=== PATIENT | male | born 1985 | race Caucasian/White ===

== ENCOUNTER 2019-08-02 14:42 | Inpatient (IN) | payer OTHER ==
[2019-08-02 15:19] VITALS: BMI 47.7
--- NOTE | 2019-08-02 15:44 | HP ---
CIWA Score Nausea/Vomitin-Mild Nausea/No Vomiting Muscle Tremors: 1-None Visible, but [place] Anxiety: 6 Agitation: 4-Moderately Restless Paroxysmal Sweats: 1-Minimal Palms Moist Orientation: 0-Oriented Tacttile Disturbances: 0-None Auditory Disturbances: 0-None Visual Disturbances: 0-None Headache: 0-None Present CIWA-Ar Total Score: 13 - Admission Criteria OASAS Guidelines: Admission for Medically Managed Detox: Requires at least one of the followin. CIWA greater than 12 2. Seizures within the past 24 hours 3. Delirium tremens within the past 24 hours 4. Hallucinations within the past 24 hours 5. Acute intervention needed for co occurring medical disorder 6. Acute intervention needed for co occurring psychiatric disorder 7. Severe withdrawal that cannot be handled at a lower level of care (continued vomiting, continued diarrhea, abnormal vital signs) requiring intravenous medication and/or fluids 8. Admitting History and Physical - Admission History of Present Illness: 34 year old obese male with history of alcohol dependence with some intoxication. He is drinking 3 24 oz beers daily, last drank today at 3pm. Blacked out 1 week ago. He was in detox in [facility] in 2013 and completed and he then relapsed 1 year ago. He wants to go to detox once again and hopes that it helps like last time he was here. He is on methadone program [facility] on 130mg of methadone daily. PMH: Obesity, Hypogonadism, Asthma Psych: Anxiety Disorder, ADHD. Is being seen by a psychiatrist who put him on Gabapentin but is still in treatment. Psurg: Right Ankle surgery due to fracture and dislocation Patient is living with family and is unemployed. 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 History Source: Patient Limitations to Obtaining History: No Limitations - Past Medical History Psych: Yes: Anxiety Additional Past Medical History: Morbid obesity - Past Surgical History Additional Past Surgical History: Right ankle surgery - Smoking History Smoking history: Current every day smoker Have you smoked in the past 12 months: Yes Aproximately how many cigarettes per day: 20 (vaping) - Alcohol/Substance Use Hx Alcohol Use: Yes (daily beer drinking) Number of Drinks Daily: 33 - Social History Usual Living Arrangement: Yes: With Parent Do you think of yourself as: Straight/Heterosexual ADL: Independent Occupation: unemployed History of Recent Travel: No Admission ROS BHS - HPI Allergies/Adverse Reactions: Allergies Allergy/AdvReac Type Severity Reaction Status Date / Time No Known Allergies Allergy Verified 08/02/19 15:02 Exam Limitations: No Limitations - Ebola screening Have you traveled outside of the country in the last 21 days: No Have you had contact with anyone from an Ebola affected area: No Have you been sick,other than usual withdrawal symptoms: No Do you have a fever: No - Review of Systems Constitutional: Chills EENT: reports: No Symptoms Reported Respiratory: reports: No Symptoms reported Cardiac: reports: No Symptoms Reported, Chest Tightness : reports: No Symptoms Reported Musculoskeletal: reports: No Symptoms Reported Integumentary: reports: No Symptoms Reported Neuro: reports: No Symptoms reported Endocrine: reports: No Symptoms Reported Hematology: reports: No Symptoms Reported Psychiatric: reports: Judgement Intact, Mood/Affect Appropiate, Orientated x3, Agitated, Anxious Other Systems: Reviewed and Negative Patient History - Patient Medical History Hx Anemia: No Hx Asthma: Yes (Hx. of allergic asthma) Hx Chronic Obstructive Pulmonary Disease (COPD): No Hx Cancer: No Hx Cardiac Disorders: No Hx Hypertension: No Hx Hypercholesterolemia: No Hx Pacemaker: No HX Cerebrovascular Accident: No Hx Seizures: No Hx Diabetes: No Hx Gastrointestinal Disorders: No Hx Liver Disease: No Hx Genitourinary Disorders: No Hx Sexually Transmitted Disorders: No Hx Renal Disease (ESRD): No Hx Thyroid Disease: No Hx Human Immunodeficiency Virus (HIV): No Hx Hepatitis C: No Hx Depression: No Hx Suicide Attempt: No Hx Schizophrenia: No - Patient Surgical History Past Surgical History: No Hx Neurologic Surgery: No Hx Cataract Extraction: No Hx Cardiac Surgery: No Hx Lung Surgery: No Hx Breast Surgery: No Hx Breast Biopsy: No Hx Abdominal Surgery: No Hx Appendectomy: No Hx Cholecystectomy: No Hx Genitourinary Surgery: No Hx Section: No Hx Orthopedic Surgery: No Anesthesia Reaction: No - PPD History Date: 05/04/14 Results: 0 mm - Smoking Cessation Smoking history: Current every day smoker Have you smoked in the past 12 months: Yes Aproximately how many cigarettes per day: 20 Hx Chewing Tobacco Use: No Initiated information on smoking cessation: Yes 'Breaking Loose' booklet given: 08/02/19 - Substances abused Alcohol Substance route: Oral Frequency: Daily Amount used: (3) 240z beers Age of first use: 19 Date of last use: 08/02/19 Admission Physical Exam [facility] - Vital Signs Vital Signs: Vital Signs - 24 hr 08/02/19 15:09 Temperature 99.1 F Pulse Rate 109 H Respiratory 20 Rate Blood Pressure 141/82 - Physical General Appearance: Yes: Moderate Distress, Irritable, Sweating, Anxious HEENTM: Yes: EOMI, Hearing grossly Normal, Normal ENT Inspection, Normocephalic , Normal Voice, LYDIA, Pharynx Normal, Tm's normal Respiratory: Yes: Chest Non-Tender, Normal Breath Sounds, No Respiratory Distress, No Accessory Muscle Use Neck: Yes: No masses,lesions,Nodules, Supple, Trachea in good position Breast: Yes: Within Normal Limits Cardiology: Yes: Regular Rhythm, S1, S2, Tachycardia Abdominal: Yes: Normal Bowel Sounds, Non Tender, Flat, Soft Genitourinary: Yes: Within Normal Limits Back: Yes: Normal Inspection Musculoskeletal: Yes: full range of Motion, Gait Steady, Pelvis Stable Extremities: Yes: Normal Capillary Refill, Normal Inspection, Normal Range of Motion, Non-Tender Neurological: Yes: dock boss II-XII NML intact, Fully Oriented, Alert, Motor Strength 5/5, Normal Mood/Affect, Normal Response Integumentary: Yes: Normal Color, Warm Lymphatic: Yes: Within Normal Limits - Diagnostic (1) Alcohol dependence with withdrawal Current Visit: Yes Status: Acute (2) ADD (attention deficit disorder) Current Visit: Yes Status: Acute (3) Asthma Current Visit: Yes Status: Acute (4) ATB (generalized anxiety disorder) Current Visit: Yes Status: Acute (5) Methadone maintenance therapy patient Current Visit: Yes Status: Acute (6) Mood disorder Current Visit: Yes Status: Acute (7) Opioid dependence Current Visit: Yes Status: Acute Cleared for Admission [facility] - Detox or Rehab [facility] Level of Care: Medically Managed Detox Regimen/Protocol: Librium Claeared for Rehab Admission: No Screened but not Admitted - Documentation of Visit Screened but not Admitted: No Breathalyzer - Breathalyzer Breathalyzer: 0.026 Inpatient Rehab Admission - Rehab Decision to Admit Inpatient rehab admission?: No
[2019-08-02] MEDS ORDERED: METHOCARBAMOL 500 MG TABLET PO PRN (15:50)
[2019-08-02] MEDS ORDERED: MAGNESIUM CITRATE 300 ML BOTTLE PO PRN (15:50)
[2019-08-02] MEDS ORDERED: chlordiazePOXIDE HCL 25 MG CAPSULE PO PRN (15:50)
[2019-08-02] MEDS ORDERED: ACETAMINOPHEN 325 MG TABLET (FP) PO PRN (15:50)
[2019-08-02] MEDS ORDERED: MAGNESIUM HYDROX 2400MG/30ML ORAL SUSPENSION 30 ML CUP PO PRN (15:50)
[2019-08-02] MEDS ORDERED: BISMUTH SUBSALICYLATE 524 MG/30 ML UD PO PRN (15:50)
[2019-08-02] MEDS ORDERED: MAG HYDROX/AL HYDROX/SIMETH 30 ML UNIT-DOSE CUP PO PRN (15:50)
[2019-08-02] MEDS ORDERED: MELATONIN 5 MG TABLETS PO PRN (15:50)
[2019-08-02] MEDS ORDERED: MENTHOL/PHENOL 1 EACH UD MM PRN (15:50)
[2019-08-02] MEDS: chlordiazePOXIDE HCL 25 MG CAPSULE PO SCH ×2 (17:10→22:00)
[2019-08-02] MEDS: NICOTINE 14 MG/24 HOURS TOPICAL PATCH TD SCH (17:12)
[2019-08-02] MEDS: hydrOXYzine PAMOATE 25 MG CAPSULE (FP) PO PRN ×2 (17:55→23:44)
[2019-08-02] MEDS: QUEtiapine FUMARATE 400 MG TABLET PO SCH (21:58)
[2019-08-02] MEDS: THIAMINE HCL 100 MG TABLET (FP) PO SCH (21:58)
[2019-08-03] MEDS: chlordiazePOXIDE HCL 25 MG CAPSULE PO SCH ×4 (05:55→22:00)
[2019-08-03] MEDS ORDERED: METHADONE HCL 10 MG TABLET PO SCH (06:00)
[2019-08-03] MEDS ORDERED: METHADONE HCL 10 MG TABLET PO ONE (08:27)
[2019-08-03] MEDS ORDERED: METHADONE 120 MG, METHADONE 10 MG PO ONE (08:45)
--- NOTE | 2019-08-03 08:55 | PN ---
S CIWA - CIWA Score Nausea/Vomitin-No Nausea/No Vomiting Muscle Tremors: 2 Anxiety: 4-Mod. Anxious/Guarded Agitation: 0-Normal Activity Paroxysmal Sweats: 2 Orientation: 0-Oriented Tacttile Disturbances: 2-Mild Itch/Numbness/Burn Auditory Disturbances: 0-None Visual Disturbances: 0-None Headache: 1-Very Mild CIWA-Ar Total Score: 11 BHS Progress Note (SOAP) Subjective: Patient is a 34yo male with hx of alcohol dependence on librium protocol and MMTP c/o of anxiety, body aches, chills , interrupted sleep Objective: 08/03/19 08:52 Vital Signs Temperature 96.6 F L 08/03/19 06:56 Pulse Rate 80 08/03/19 06:56 Respiratory Rate 18 08/03/19 06:56 Blood Pressure 134/101 H 08/03/19 06:56 O2 Sat by Pulse Oximetry (%) labs pending Assessment: 08/03/19 08:52 Patient is Aox3 no acute distress EENT WNL obese with protuberant abdomen full ROM ambulating in the unit no edema or erythema withdrawal sx Plan: patient plans to attend inpatient rehab upon completing detox increase fluids continue detox continue to monitor
--- NOTE | 2019-08-03 09:05 | CONSULT ---
[facility] Psychiatric Consult - Data Date of interview: 08/03/19 Admission source: [facility] Identifying data: Mr Ahmadi is a 34 years old single male, father of a 11 years old son, unemployed witn no source of income, living with family seeking detox treatment for alcohol Substance Abuse History: Reports history of alcohol use. Refer to addiction counselor's summary for further information Medical History: Significant for bronchial asthma, hypogonadism, obesity and orthosurgry for fracture and dislocation right ankle. Patient is on methadone 130 mg/day from [facility], Smokes cigarettes 1 ppd Psychiatric History: Patient is known to this facilty from previous admissions. Historical narative remains consistent. Reports that his first psychiatric contact was age 10 when he was referred to the school psychiatrist due hyperactivity. He was diagnosed with ADHD and started treatment with Ritalin then later with Adderall 30 mg/bid. In 2010 while in rehabilitation treatment, he was diagnosed with anxiety and started on Seroquel. He is currently prescribed Adderall 30 mg/bid, Gabapentin 600 mg/tid and Seroquel 400 mg/hs prescribed by the staff psychiatrist at his methadone program([facility]) . Denies previous psychiatric hospitalization or suicidal attempt. At present, reports feeling anxious and sleeping poorly Physical/Sexual Abuse/Trauma History: Denies history of abuse as a child or DV relationship as an adult Mental Status Exam - Mental Status Exam Alert and Oriented to: Time, Place, Person Cognitive Function: Fair Patient Appearance: Disheveled Mood: Anxious Affect: Appropriate Patient Behavior: Cooperative Speech Pattern: Clear Voice Loudness: Normal Thought Process: Intact, Goal Oriented Thought Disorder: Not Present Hallucinations: Denies Suicidal Ideation: Denies Homicidal Ideation: Denies Insight/Judgement: Poor Sleep: Poorly Appetite: Good Muscle strength/Tone: Normal Gait/Station: Normal Psychiatric Findings - Problem List (Kelly 1, 2,3) (1) ADD (attention deficit disorder) Current Visit: Yes Status: Chronic (2) Anxiety disorder Current Visit: Yes Status: Chronic (3) TAB (generalized anxiety disorder) Current Visit: Yes Status: Ruled-out (4) Alcohol-induced anxiety disorder Current Visit: Yes Status: Acute (5) Alcohol-induced sleep disorder Current Visit: Yes Status: Acute (6) Alcohol dependence with withdrawal Current Visit: Yes Status: Acute (7) Opioid dependence on agonist therapy Current Visit: Yes Status: Chronic (8) Nicotine dependence Current Visit: Yes Status: Chronic (9) Asthma Current Visit: Yes Status: Chronic (10) Hypogonadism Current Visit: Yes Status: Chronic (11) Obesity Current Visit: Yes Status: Chronic - Initial Treatment Plan Initial Treatment Plan: 1) Continue Gabapetin 600 mg po TID and Seroquel 400 mg po HS. 2) Continue inpatient detoxification
[2019-08-03] MEDS ORDERED: METHADONE HCL 10 MG TABLET ONE (09:28)
[2019-08-03] MEDS ORDERED: METHADONE HCL 40 MG DISPERSABLE TABLET ONE (09:29)
[2019-08-03] MEDS: PRENATAL VITAMINS W/ FOLIC ACID TABLET (FP) PO SCH (09:38)
[2019-08-03] MEDS: ACETAMINOPHEN 325 MG TABLET (FP) PO PRN ×2 (09:41→17:18)
[2019-08-03] MEDS: NICOTINE 14 MG/24 HOURS TOPICAL PATCH TD SCH (09:41)
[2019-08-03 10:22] LABS: HEMATOCRIT 39.3 % (35.4-49); HEMOGLOBIN 13.3 GM/dL (11.7-16.9); MCH 28.7 pg (25.7-33.7); MCHC 33.9 g/dl (32.0-35.9); MEAN CELL VOLUME 84.6 fl (80-96); MEAN PLT VOLUME 7.8 fl (7.5-11.1); PLATELET COUNT 241 K/MM3 (134-434); RBC 4.65 M/mm3 (4.00-5.60); RDW 14.8 % (11.9-15.9); WHITE BLOOD COUNT 5.3 K/mm3 (4.0-10.0)
[2019-08-03 10:41] LABS: ALBUMIN 3.7 g/dl (3.4-5.0); BILIRUBIN,TOTAL 0.6 mg/dL (0.2-1); BLOOD UREA NITROGEN 11.2 mg/dL (7-18); CALCIUM 9.2 mg/dL (8.5-10.1); CREATININE 1.1 mg/dL (0.55-1.3); POTASSIUM 3.9 mmol/L (3.5-5.1); TOT PROT 7.2 g/dl (6.4-8.2)
[2019-08-03] MEDS: GABAPENTIN 300 MG CAPSULE PO SCH ×2 (14:35→22:01)
[2019-08-03] MEDS: THIAMINE HCL 100 MG TABLET (FP) PO SCH (22:00)
[2019-08-03] MEDS: QUEtiapine FUMARATE 400 MG TABLET PO SCH (22:01)
[2019-08-04] MEDS ORDERED: METHADONE HCL 10 MG TABLET ONE (05:26)
[2019-08-04] MEDS ORDERED: METHADONE HCL 40 MG DISPERSABLE TABLET ONE (05:27)
[2019-08-04] MEDS ORDERED: METHADONE HCL 40 MG DISPERSABLE TABLET PO SCH (06:00)
[2019-08-04] MEDS: GABAPENTIN 300 MG CAPSULE PO SCH ×3 (06:10→22:05)
[2019-08-04] MEDS: METHADONE 120 MG, METHADONE 10 MG PO SCH (06:10)
[2019-08-04] MEDS: chlordiazePOXIDE HCL 25 MG CAPSULE PO SCH ×4 (06:10→22:05)
[2019-08-04] MEDS: ACETAMINOPHEN 325 MG TABLET (FP) PO PRN (06:37)
[2019-08-04] MEDS: NICOTINE 14 MG/24 HOURS TOPICAL PATCH TD SCH (10:47)
[2019-08-04] MEDS: PRENATAL VITAMINS W/ FOLIC ACID TABLET (FP) PO SCH (10:47)
--- NOTE | 2019-08-04 13:43 | PN ---
S CIWA - CIWA Score Nausea/Vomitin-No Nausea/No Vomiting Muscle Tremors: 3 Anxiety: 2 Agitation: 2 Paroxysmal Sweats: 2 Orientation: 0-Oriented Tacttile Disturbances: 0-None Auditory Disturbances: 0-None Visual Disturbances: 0-None Headache: 0-None Present CIWA-Ar Total Score: 9 S Progress Note (SOAP) Subjective: ankle pain when walking swelling sweats tired Objective: 08/04/19 13:41 Vital Signs Temperature 98.1 F 08/04/19 09:49 Pulse Rate 108 H 08/04/19 09:49 Respiratory Rate 17 08/04/19 09:49 Blood Pressure 122/76 08/04/19 09:49 O2 Sat by Pulse Oximetry (%) Laboratory Tests 08/03/19 08/03/19 08/03/19 08:00 08:00 08:00 WBC 5.3 RBC 4.65 Hgb 13.3 Hct 39.3 D MCV 84.6 MCH 28.7 MCHC 33.9 RDW 14.8 D Plt Count 241 MPV 7.8 Sodium 138 Potassium 3.9 Chloride 101 Carbon Dioxide 30 Anion Gap 7 L BUN 11.2 Creatinine 1.1 Est GFR (CKD-EPI)AfAm 100.97 Est GFR (CKD-EPI)NonAf 87.12 Random Glucose 94 Calcium 9.2 Total Bilirubin 0.6 AST 17 ALT 39 Alkaline Phosphatase 172 H Total Protein 7.2 Albumin 3.7 RPR Titer Nonreactive labs noted aaox3 ambulating no acute distress Assessment: 08/04/19 13:41 withdrawals swelling to ankles Plan: continue detox elevated both feet prn analgesic balm and darius bandage
[2019-08-04] MEDS: METHYL SALICYLATE/MENTHOL OINT 30 GM TUBE TP SCH ×2 (14:36→22:06)
[2019-08-04] MEDS: THIAMINE HCL 100 MG TABLET (FP) PO SCH (22:05)
[2019-08-04] MEDS ORDERED: QUEtiapine FUMARATE 400 MG TABLET PO ONE (23:16)
[2019-08-05] MEDS ORDERED: chlordiazePOXIDE HCL 10 MG CAPSULE PO PRN
[2019-08-05] MEDS ORDERED: METHADONE HCL 10 MG TABLET ONE (05:13)
[2019-08-05] MEDS ORDERED: METHADONE HCL 40 MG DISPERSABLE TABLET ONE (05:14)
[2019-08-05] MEDS: GABAPENTIN 300 MG CAPSULE PO SCH ×3 (05:37→22:03)
[2019-08-05] MEDS: METHADONE 120 MG, METHADONE 10 MG PO SCH (05:37)
[2019-08-05] MEDS: chlordiazePOXIDE HCL 10 MG CAPSULE PO SCH ×4 (05:37→22:02)
[2019-08-05] MEDS: ACETAMINOPHEN 325 MG TABLET (FP) PO PRN (05:40)
[2019-08-05] MEDS: PRENATAL VITAMINS W/ FOLIC ACID TABLET (FP) PO SCH (10:52)
[2019-08-05] MEDS: NICOTINE 14 MG/24 HOURS TOPICAL PATCH TD SCH (10:53)
[2019-08-05] MEDS: METHYL SALICYLATE/MENTHOL OINT 30 GM TUBE TP SCH ×2 (10:53→22:04)
--- NOTE | 2019-08-05 11:32 | PN ---
Psychiatric Progress Note Vital Signs: Vital Signs Period Temp Pulse Resp BP Sys/Flowers Pulse Ox Last 24 Hr 97.6 F-98.1 F 89-98 17-18 126-154/53-90 Date of Session: 08/05/19 Chief Complaint:: " I need my seroquel." HPI: Patient admitted to for alcohol dependence. Consultation ordered as patient is requesting his seroquel dose. ROS: Patient is alert +oriented X3. Current Medications: Active Medications Generic Name Dose Route Start Last Admin Trade Name Freq PRN Reason Stop Dose Admin Acetaminophen 650 mg 08/02/19 15:50 08/05/19 05:40 Tylenol - PO 650 mg Q6H PRN Administration PAIN LEVEL 4 - 6 Acetaminophen 650 mg 08/02/19 15:50 Tylenol - PO Q6H PRN FEVER Al Hydroxide/Mg Hydroxide 30 ml 08/02/19 15:50 Mylanta Oral Suspension - PO Q6H PRN DYSPEPSIA Bismuth Subsalicylate 524 mg 08/02/19 15:50 Pepto-Bismol - PO Q1H PRN DIARRHEA Chlordiazepoxide HCl 10 mg 08/05/19 05:00 08/05/19 10:53 Librium - PO 08/05/19 23:01 10 mg [id number] HENNA Administration Chlordiazepoxide HCl 10 mg 08/06/19 05:00 Librium - PO 08/06/19 17:01 Q12H HENNA Chlordiazepoxide HCl 10 mg 08/05/19 00:00 Librium - PO 08/06/19 00:00 Q4H PRN WITHDRAWAL(CONT SUBST) Chlordiazepoxide HCl 10 mg 08/07/19 05:00 Librium - PO 08/07/19 05:01 ONCE@0500 ONE Eucalyptus/Menthol/Phenol/Sorbitol 1 each 08/02/19 15:50 Cepastat Lozenge - MM 08/08/19 15:50 Q4H PRN SORE THROAT Gabapentin 600 mg 08/03/19 14:00 08/05/19 05:37 Neurontin - PO 600 mg TID HENNA Administration Hydroxyzine Pamoate 25 mg 08/02/19 15:50 08/02/19 23:44 Vistaril - PO 08/08/19 15:50 25 mg Q6H PRN Administration For Anxiety Ibuprofen 400 mg 08/02/19 15:50 Motrin - PO Q6H PRN PAIN LEVEL 1 - 3 Magnesium Citrate 300 ml 08/02/19 15:50 Citroma - PO Q48H PRN CONSTIPATION Magnesium Hydroxide 30 ml 08/02/19 15:50 Milk Of Magnesia - PO PRN PRN CONSTIPATION Melatonin 5 mg 08/02/19 15:50 Melatonin PO HS PRN INSOMNIA Methadone HCl 120 mg/ 130 mg 08/04/19 06:00 08/05/19 05:37 Methadone HCl 10 mg PO 130 mg DAILY@0600 HENNA Administration Methocarbamol 500 mg 08/02/19 15:50 Robaxin - PO 08/08/19 15:50 Q6H PRN MUSCLE SPASMS Methyl Salicylate 1 applic 08/04/19 13:45 08/05/19 10:53 Ranjit-Bauman - TP 1 applic BID HENNA Administration Nicotine 14 mg 08/02/19 17:00 08/05/19 10:53 Nicoderm Patch - TD 14 mg DAILY HENNA Administration Multivit/Folic Acid/Iron 1 tab 08/03/19 10:00 08/05/19 10:52 Vitamins (Sjr) - PO 1 tab DAILY HENNA Administration Quetiapine Fumarate 400 mg 08/05/19 22:00 Seroquel - PO HS HENNA Thiamine HCl 100 mg 08/02/19 22:00 08/04/19 22:05 Vitamin B1 - PO 100 mg HS HENNA Administration Medication(s) Change(s): Yes. Will continue Seroquel 400mg HS. Current Side Effect: No Lab tests ordered: No Lab tests reviewed: Yes Provider note:: Patient seen by Dr. Gomes. Dr. Gomes's note read and appreciated. Patient requesting seroquel 400mg HS. Patient ordered seroquel 400mg upon admission but underwriter solicitation director was informed that patient had to receive a one time of seroquel 400mg last night as the medication was discontinued. Will continue Seroquel 400mg HS. Benefits and side effects discussed. Verbal consent given. Total face to face time:: 20 Mental Status Exam - Mental Status Exam Alert and Oriented to: Time, Place, Person Cognitive Function: Good Patient Appearance: Well Groomed Mood: Euthymic Affect: Appropriate Patient Behavior: Appropriate, Cooperative Speech Pattern: Clear, Appropriate Voice Loudness: Normal Thought Process: Intact, Goal Oriented Thought Disorder: Not Present Hallucinations: Denies Suicidal Ideation: Denies Homicidal Ideation: Denies Insight/Judgement: Poor Sleep: Poorly Appetite: Fair Muscle strength/Tone: Normal Gait/Station: Normal Psychiatric Treatment Plan - Problem List (1) Alcohol dependence with withdrawal Current Visit: Yes (2) Alcohol-induced anxiety disorder Current Visit: Yes (3) Alcohol-induced sleep disorder Current Visit: Yes (4) ADD (attention deficit disorder) Current Visit: Yes (5) Anxiety disorder Current Visit: Yes (6) Methadone maintenance therapy patient Current Visit: Yes (7) Nicotine dependence Current Visit: Yes (8) Opioid dependence on agonist therapy Current Visit: Yes
--- NOTE | 2019-08-05 15:01 | PN ---
S CIWA - CIWA Score Nausea/Vomitin-No Nausea/No Vomiting Muscle Tremors: None Anxiety: 3 Agitation: 1-Slight > Activity Paroxysmal Sweats: No Perspiration Orientation: 0-Oriented Tacttile Disturbances: 1-Very Mild Itch/Numbness Auditory Disturbances: 0-None Visual Disturbances: 2-Mild Sensitivity Headache: 0-None Present CIWA-Ar Total Score: 7 BHS Progress Note (SOAP) Subjective: Insomnia, Anxious. Objective: PATIENT A & O X 3, OBSERVED AMBULATING ON DETOX UNIT UNASSISTED. IN NO ACUTE DISTRESS. 08/05/19 14:56 Vital Signs Temperature 97.6 F 08/05/19 10:00 Pulse Rate 96 H 08/05/19 10:00 Respiratory Rate 18 08/05/19 10:00 Blood Pressure 127/53 L 08/05/19 10:00 O2 Sat by Pulse Oximetry (%) Laboratory Tests 08/03/19 08/03/19 08/03/19 08:00 08:00 08:00 WBC 5.3 RBC 4.65 Hgb 13.3 Hct 39.3 D MCV 84.6 MCH 28.7 MCHC 33.9 RDW 14.8 D Plt Count 241 MPV 7.8 Sodium 138 Potassium 3.9 Chloride 101 Carbon Dioxide 30 Anion Gap 7 L BUN 11.2 Creatinine 1.1 Est GFR (CKD-EPI)AfAm 100.97 Est GFR (CKD-EPI)NonAf 87.12 Random Glucose 94 Calcium 9.2 Total Bilirubin 0.6 AST 17 ALT 39 Alkaline Phosphatase 172 H Total Protein 7.2 Albumin 3.7 RPR Titer Nonreactive LABS NOTED. Assessment: 08/05/19 14:57 WITHDRAWAL SYMPTOMS. ELEVATED ALKALINE PHOSPHATASE LEVEL. 08/05/19 15:01 Plan: CONTINUE DETOX.
[2019-08-05] MEDS: IBUPROFEN 400 MG TABLET (FP) PO PRN (19:20)
[2019-08-05] MEDS: QUEtiapine FUMARATE 400 MG TABLET PO SCH (22:03)
[2019-08-05] MEDS: THIAMINE HCL 100 MG TABLET (FP) PO SCH (22:03)
[2019-08-06] MEDS ORDERED: METHADONE HCL 40 MG DISPERSABLE TABLET ONE (04:36)
[2019-08-06] MEDS ORDERED: METHADONE HCL 10 MG TABLET ONE (04:36)
[2019-08-06] MEDS: chlordiazePOXIDE HCL 10 MG CAPSULE PO SCH ×2 (04:37→17:06)
[2019-08-06] MEDS: hydrOXYzine PAMOATE 25 MG CAPSULE (FP) PO PRN (04:37)
[2019-08-06] MEDS: IBUPROFEN 400 MG TABLET (FP) PO PRN ×3 (04:38→17:08)
[2019-08-06] MEDS: METHADONE 120 MG, METHADONE 10 MG PO SCH (05:02)
[2019-08-06] MEDS: GABAPENTIN 300 MG CAPSULE PO SCH ×3 (06:40→22:13)
[2019-08-06] MEDS ORDERED: hydrOXYzine PAMOATE 25 MG CAPSULE (FP) PO PRN (10:41)
[2019-08-06] MEDS: NICOTINE 14 MG/24 HOURS TOPICAL PATCH TD SCH (10:42)
[2019-08-06] MEDS: PRENATAL VITAMINS W/ FOLIC ACID TABLET (FP) PO SCH (10:42)
[2019-08-06] MEDS: METHYL SALICYLATE/MENTHOL OINT 30 GM TUBE TP SCH ×2 (10:51→22:14)
--- NOTE | 2019-08-06 12:34 | PN ---
S CIWA - CIWA Score Nausea/Vomitin-No Nausea/No Vomiting Muscle Tremors: None Anxiety: 2 Agitation: 2 Paroxysmal Sweats: No Perspiration Orientation: 0-Oriented Tacttile Disturbances: 0-None Auditory Disturbances: 0-None Visual Disturbances: 0-None Headache: 0-None Present CIWA-Ar Total Score: 4 BHS Progress Note (SOAP) Subjective: Anxious, interrupted sleep Objective: 08/06/19 12:26 Last Vital Signs Temp Pulse Resp BP Pulse Ox 98.2 F 103 H 20 122/76 08/06/19 09:52 08/06/19 09:52 08/06/19 09:52 08/06/19 09:52 Laboratory Tests 08/03/19 08/03/19 08/03/19 08:00 08:00 08:00 WBC 5.3 RBC 4.65 Hgb 13.3 Hct 39.3 D MCV 84.6 MCH 28.7 MCHC 33.9 RDW 14.8 D Plt Count 241 MPV 7.8 Sodium 138 Potassium 3.9 Chloride 101 Carbon Dioxide 30 Anion Gap 7 L BUN 11.2 Creatinine 1.1 Est GFR (CKD-EPI)AfAm 100.97 Est GFR (CKD-EPI)NonAf 87.12 Random Glucose 94 Calcium 9.2 Total Bilirubin 0.6 AST 17 ALT 39 Alkaline Phosphatase 172 H Total Protein 7.2 Albumin 3.7 RPR Titer Nonreactive Labs reviewed Assessment: 08/06/19 12:27 Withdrawal sxs Plan: Continue detox Encouraged PO water intake Patient scheduled for discharge tomorrow Vistaril increased to 50mg q6hr prn for anxiety as per patient's request
[2019-08-06] MEDS: THIAMINE HCL 100 MG TABLET (FP) PO SCH (22:13)
[2019-08-06] MEDS: QUEtiapine FUMARATE 400 MG TABLET PO SCH (22:14)
[2019-08-07] MEDS ORDERED: chlordiazePOXIDE HCL 10 MG CAPSULE PO ONE (05:00)
[2019-08-07] MEDS ORDERED: METHADONE HCL 40 MG DISPERSABLE TABLET ONE (05:03)
[2019-08-07] MEDS ORDERED: METHADONE HCL 10 MG TABLET ONE (05:03)
[2019-08-07] MEDS: METHADONE 120 MG, METHADONE 10 MG PO SCH (06:00)
[2019-08-07] MEDS: GABAPENTIN 300 MG CAPSULE PO SCH (06:01)
[2019-08-07] MEDS: IBUPROFEN 400 MG TABLET (FP) PO PRN (06:01)
--- NOTE | 2019-08-07 09:41 | DS ---
[facility] Detox Discharge Summary Admission Date: 08/02/19 Discharge Date: 08/07/19 - History Present History: Alcohol Dependence, MMTP - Physical Exam Results Vital Signs: Vital Signs Temperature 98.2 F 08/07/19 09:20 Pulse Rate 109 H 08/07/19 09:20 Respiratory Rate 08/07/19 09:20 Blood Pressure 137/77 08/07/19 09:20 O2 Sat by Pulse Oximetry (%) Pertinent Admission Physical Exam Findings: Vital Signs Temperature 98.2 F 08/07/19 09:20 Pulse Rate 109 H 08/07/19 09:20 Respiratory Rate 08/07/19 09:20 Blood Pressure 137/77 08/07/19 09:20 O2 Sat by Pulse Oximetry (%) Laboratory Tests 08/03/19 08/03/19 08/03/19 08:00 08:00 08:00 WBC 5.3 RBC 4.65 Hgb 13.3 Hct 39.3 D MCV 84.6 MCH 28.7 MCHC 33.9 RDW 14.8 D Plt Count 241 MPV 7.8 Sodium 138 Potassium 3.9 Chloride 101 Carbon Dioxide 30 Anion Gap 7 L BUN 11.2 Creatinine 1.1 Est GFR (CKD-EPI)AfAm 100.97 Est GFR (CKD-EPI)NonAf 87.12 Random Glucose 94 Calcium 9.2 Total Bilirubin 0.6 AST 17 ALT 39 Alkaline Phosphatase 172 H Total Protein 7.2 Albumin 3.7 RPR Titer Nonreactive aaox3 ambulating no acute distress - Treatment Hospital Course: Detox Protocol Followed, Detoxed Safely, Responded well, Discharged Condition Good, Rehab Referral Accepted - Medication Discharge Medications: Ambulatory Orders Amphet Asp/Amphet/D-Amphet [Adderall 30 mg Tablet] 30 mg PO BID 05/02/14 Gabapentin [Neurontin] 600 mg PO TID 08/02/19 Quetiapine Fumarate [Seroquel -] 400 mg PO HS 08/02/19 - Diagnosis (1) Alcohol dependence with withdrawal Current Visit: Yes Status: Chronic Qualifiers: Complication of substance-induced condition: uncomplicated Qualified Code(s ): F10.230 - Alcohol dependence with withdrawal, uncomplicated (2) Alcohol-induced anxiety disorder Current Visit: Yes Status: Acute (3) Alcohol-induced sleep disorder Current Visit: Yes Status: Acute (4) Elevated alkaline phosphatase level Current Visit: Yes Status: Acute (5) Methadone maintenance therapy patient Current Visit: Yes Status: Chronic (6) Mood disorder Current Visit: Yes Status: Acute (7) Opioid dependence Current Visit: Yes Status: Chronic Qualifiers: Substance use status: uncomplicated Qualified Code(s): F11.20 - Opioid dependence, uncomplicated (8) ADD (attention deficit disorder) Current Visit: Yes Status: Chronic (9) Anxiety disorder Current Visit: Yes Status: Chronic (10) Asthma Current Visit: Yes Status: Chronic (11) Hypogonadism Current Visit: Yes Status: Chronic (12) Nicotine dependence Current Visit: Yes Status: Chronic (13) Obesity Current Visit: Yes Status: Chronic (14) Opioid dependence on agonist therapy Current Visit: Yes Status: Chronic (15) TAB (generalized anxiety disorder) Current Visit: Yes Status: Ruled-out - AMA Did Patient Leave Against Medical Advice: No
[2019-08-07] MEDS: NICOTINE 14 MG/24 HOURS TOPICAL PATCH TD SCH (10:08)
[2019-08-07] MEDS: PRENATAL VITAMINS W/ FOLIC ACID TABLET (FP) PO SCH (10:08)
[2019-08-07] MEDS: METHYL SALICYLATE/MENTHOL OINT 30 GM TUBE TP SCH (10:20)
[2019-08-07 12:50] VITALS: BP 124/78; PULSE 118; TEMP 98.8
== END 2019-08-07 13:00 | disposition other institution (70) | DRG 773 ==
LOC: YASAS 14:42 → Y6N 16:45
PROVIDERS: ADMIT Allergy & Immunology; ATTEND Allergy & Immunology
PROC: HZ2ZZZZ Detoxification Services for Substance Abuse Treatment (ICD-10-PCS; principal; 2019-08-02)
DX: F10.230 Alcohol dependence with withdrawal, uncomplicated (principal); F10.220 Alcohol dependence with intoxication, uncomplicated; F10.280 Alcohol dependence with alcohol-induced anxiety disorder; F10.282 Alcohol dependence with alcohol-induced sleep disorder; F11.20 Opioid dependence, uncomplicated; F17.210 Nicotine dependence, cigarettes, uncomplicated; F39 Unspecified mood [affective] disorder; F90.9 Attention-deficit hyperactivity disorder, unspecified type; F41.9 Anxiety disorder, unspecified; F41.1 Generalized anxiety disorder; R00.0 Tachycardia, unspecified; R74.0 Nonspecific elevation of levels of transaminase and lactic acid dehydrogenase [LDH]; J45.909 Unspecified asthma, uncomplicated; E29.1 Testicular hypofunction; G47.00 Insomnia, unspecified; E65 Localized adiposity; E66.9 Obesity, unspecified; Z68.42 Body mass index [BMI] 45.0-49.9, adult
CPT/HCPCS: 36415; 80053; 85027; 86593

== ENCOUNTER 2019-08-07 13:32 | Inpatient (IN) | payer OTHER ==
[2019-08-07] MEDS ORDERED: MAGNESIUM CITRATE 300 ML BOTTLE PO PRN (15:44)
[2019-08-07] MEDS ORDERED: hydrOXYzine PAMOATE 50 MG CAPSULE (FP) PO PRN (15:44)
[2019-08-07] MEDS ORDERED: MAGNESIUM HYDROX 2400MG/30ML ORAL SUSPENSION 30 ML CUP PO PRN (15:44)
[2019-08-07] MEDS ORDERED: LOPERAMIDE HCL 2 MG CAPSULE PO PRN (15:44)
[2019-08-07] MEDS ORDERED: guaiFENesin 200 MG/10 ML 10 ML UNIT-DOSE CUPS PO PRN (15:44)
[2019-08-07] MEDS ORDERED: P-EPHED 60MG/TRIPROLIDI 2.5MG TABLET PO PRN (15:44)
[2019-08-07] MEDS ORDERED: MENTHOL/PHENOL 1 EACH UD MM PRN (15:44)
--- NOTE | 2019-08-07 15:47 | HP ---
TESHA STRAUSS Rehab Assess/Revision - Admission History Admitted to Rehab from: [address] Date of Admission to Rehab: 08/07/19 - Findings Detox History & Physical reviewed: Yes Concur with findings: Yes Comments/Additional Findings: Pt is a 34 y/o male with a hx of ISAÍAS admitted to rehab from [address] [place] [address] today. PMHx:Seasonal Allergies; Phsych:ADHD, Anxiety, Pt reports he has a primary care provider Radha Mckeon @ [place], [place]. Extremities/skin: No edema;skin intact. Inpatient Rehab Admission - Rehab Decision to Admit Inpatient rehab admission?: Yes - Initial Determination Are CD services needed?: Yes Free of communicable disease: Yes Not in need of hospitalization: Yes - Rehab Admission Criteria Previous failed treatment: Yes Poor recovery environment: Yes Comorbidities: Yes Lacks judgement: Yes Patient is meeting Inpatient Rehab admission criteria:: Yes
[2019-08-07] MEDS: NICOTINE 21 MG/24 HOURS TOPICAL PATCH TD SCH (17:56)
[2019-08-07] MEDS: THIAMINE HCL 100 MG TABLET (FP) PO SCH (21:39)
[2019-08-08] MEDS ORDERED: QUEtiapine FUMARATE 100 MG TABLET (FP) PO ONE (01:27)
[2019-08-08] MEDS: MELATONIN 5 MG TABLETS PO PRN (01:41)
[2019-08-08] MEDS ORDERED: METHADONE HCL 10 MG TABLET PO SCH (06:00)
[2019-08-08] MEDS: IBUPROFEN 400 MG TABLET (FP) PO PRN (06:04)
[2019-08-08] MEDS ORDERED: METHADONE HCL 40 MG DISPERSABLE TABLET ONE (06:05)
[2019-08-08] MEDS ORDERED: METHADONE HCL 10 MG TABLET ONE (06:05)
[2019-08-08] MEDS: METHADONE 120 MG, METHADONE 10 MG PO SCH (06:06)
--- NOTE | 2019-08-08 07:06 | CONSULT ---
[facility] Psychiatric Consult - Data Date of interview: 08/08/19 Admission source: /[facility] Identifying data: Mr Ahmadi is a 34 years old single male, father of a 11 years old son, unemployed witn no source of income, living with family seeking detox treatment for alcohol Substance Abuse History: Reports history of alcohol use. Refer to addiction counselor's summary for further information Medical History: Significant for bronchial asthma, hypogonadism, obesity and orthosurgry for fracture and dislocation right ankle. Patient is on methadone 130 mg/day from [facility], Smokes cigarettes 1 ppd Psychiatric History: Patient was recently seen by blurb writer 08/03/19 while admitte to detox. Historical narative remains consistent. Reports that his first psychiatric contact was age 10 when he was referred to the school psychiatrist due hyperactivity. He was diagnosed with ADHD and started treatment with Ritalin then later with Adderall 30 mg/bid. In 2010 while in rehabilitation treatment, he was diagnosed with anxiety and started on Seroquel. He is currently prescribed Adderall 30 mg/bid, Gabapentin 600 mg/tid and Seroquel 400 mg/hs prescribed by the staff psychiatrist at his methadone program([facility]). Denies previous psychiatric hospitalization or suicidal attempt. When seen by blurb writer on 07/03/20 while in detox, he was prescribed Seroquel 400 mg/hs and Gabapentin 600 mg/tid. At present, complains of very poor concentration, reports feeling anxious and sleeping poorly. Requests that Gabapentin dosage be increased to 800 mg/tid Physical/Sexual Abuse/Trauma History: Denies history of abuse as a child or DV relationship as an adult Mental Status Exam - Mental Status Exam Alert and Oriented to: Time, Place, Person Cognitive Function: Fair Patient Appearance: Well Groomed Mood: Anxious Affect: Appropriate Speech Pattern: Clear Voice Loudness: Normal Thought Process: Intact, Goal Oriented Hallucinations: Denies Suicidal Ideation: Denies Homicidal Ideation: Denies Insight/Judgement: Fair Sleep: Poorly Appetite: Good Muscle strength/Tone: Normal Gait/Station: Normal Psychiatric Findings - Problem List ([place] 1, 2,3) (1) ADHD (attention deficit hyperactivity disorder) Current Visit: Yes Status: Chronic (2) Anxiety disorder Current Visit: No Status: Chronic (3) TAB (generalized anxiety disorder) Current Visit: No Status: Ruled-out (4) Alcohol-induced anxiety disorder Current Visit: No Status: Acute (5) Alcohol-induced sleep disorder Current Visit: No Status: Acute (6) Alcohol dependence Current Visit: Yes Status: Acute (7) Opioid dependence on agonist therapy Current Visit: Yes Status: Chronic (8) Nicotine dependence Current Visit: Yes Status: Chronic (9) Asthma Current Visit: Yes Status: Chronic (10) Hypogonadism Current Visit: Yes Status: Chronic (11) Obesity Current Visit: Yes Status: Chronic - Initial Treatment Plan Initial Treatment Plan: 1) Continue Seroquel 400 mg po HS. 2) Discontinue Gabapentin 600 mg po TID. 3) Start Gabapentin 800 mg po TID, Ritalin 5 mg po BID@1000,1700 and Vistaril 50 mg po Q 4hrs prn for anxiety. 4) Continue inpatient rehabilitation
[2019-08-08] MEDS: PRENATAL VITAMINS W/ FOLIC ACID TABLET (FP) PO SCH (10:16)
[2019-08-08] MEDS: NICOTINE 21 MG/24 HOURS TOPICAL PATCH TD SCH (10:16)
[2019-08-08] MEDS: METHYLPHENIDATE HCL 5 MG TABLET PO SCH ×2 (11:19→16:54)
[2019-08-08] MEDS: GABAPENTIN 400 MG CAPSULE PO SCH ×2 (14:00→21:31)
[2019-08-08] MEDS: hydrOXYzine PAMOATE 50 MG CAPSULE (FP) PO PRN ×2 (14:01→21:32)
[2019-08-08] MEDS: QUEtiapine FUMARATE 400 MG TABLET PO SCH (21:31)
[2019-08-08] MEDS: THIAMINE HCL 100 MG TABLET (FP) PO SCH (21:32)
[2019-08-09] MEDS ORDERED: METHADONE HCL 40 MG DISPERSABLE TABLET ONE (04:31)
[2019-08-09] MEDS ORDERED: METHADONE HCL 10 MG TABLET ONE (04:31)
[2019-08-09] MEDS: METHADONE 120 MG, METHADONE 10 MG PO SCH (05:59)
[2019-08-09] MEDS: GABAPENTIN 400 MG CAPSULE PO SCH ×3 (06:00→21:42)
[2019-08-09] MEDS: IBUPROFEN 400 MG TABLET (FP) PO PRN ×2 (06:00→14:28)
[2019-08-09] MEDS: METHYLPHENIDATE HCL 5 MG TABLET PO SCH ×2 (10:48→17:16)
[2019-08-09] MEDS: NICOTINE 21 MG/24 HOURS TOPICAL PATCH TD SCH (10:48)
[2019-08-09] MEDS: PRENATAL VITAMINS W/ FOLIC ACID TABLET (FP) PO SCH (10:48)
[2019-08-09] MEDS: hydrOXYzine PAMOATE 50 MG CAPSULE (FP) PO PRN ×2 (10:48→21:42)
[2019-08-09] MEDS: QUEtiapine FUMARATE 400 MG TABLET PO SCH (21:42)
[2019-08-09] MEDS: THIAMINE HCL 100 MG TABLET (FP) PO SCH (21:42)
[2019-08-10] MEDS ORDERED: METHADONE HCL 10 MG TABLET ONE (04:33)
[2019-08-10] MEDS ORDERED: METHADONE HCL 40 MG DISPERSABLE TABLET ONE (04:33)
[2019-08-10] MEDS: GABAPENTIN 400 MG CAPSULE PO SCH ×3 (05:55→22:01)
[2019-08-10] MEDS: METHADONE 120 MG, METHADONE 10 MG PO SCH (05:56)
[2019-08-10] MEDS: IBUPROFEN 400 MG TABLET (FP) PO PRN (06:40)
[2019-08-10] MEDS: NICOTINE 21 MG/24 HOURS TOPICAL PATCH TD SCH (10:52)
[2019-08-10] MEDS: PRENATAL VITAMINS W/ FOLIC ACID TABLET (FP) PO SCH (10:52)
[2019-08-10] MEDS: ACETAMINOPHEN 325 MG TABLET (FP) PO PRN (10:53)
[2019-08-10] MEDS: METHYLPHENIDATE HCL 5 MG TABLET PO SCH ×2 (10:53→17:45)
[2019-08-10] MEDS: QUEtiapine FUMARATE 400 MG TABLET PO SCH (22:01)
[2019-08-10] MEDS: hydrOXYzine PAMOATE 50 MG CAPSULE (FP) PO PRN (22:01)
[2019-08-10] MEDS: THIAMINE HCL 100 MG TABLET (FP) PO SCH (22:01)
[2019-08-11] MEDS ORDERED: METHADONE HCL 10 MG TABLET ONE (04:20)
[2019-08-11] MEDS ORDERED: METHADONE HCL 40 MG DISPERSABLE TABLET ONE (04:21)
[2019-08-11] MEDS: METHADONE 120 MG, METHADONE 10 MG PO SCH (06:11)
[2019-08-11] MEDS: IBUPROFEN 400 MG TABLET (FP) PO PRN ×2 (06:12→21:33)
[2019-08-11] MEDS: GABAPENTIN 400 MG CAPSULE PO SCH ×3 (06:12→21:33)
[2019-08-11] MEDS: PRENATAL VITAMINS W/ FOLIC ACID TABLET (FP) PO SCH (10:43)
[2019-08-11] MEDS: NICOTINE 21 MG/24 HOURS TOPICAL PATCH TD SCH (10:43)
[2019-08-11] MEDS: ACETAMINOPHEN 325 MG TABLET (FP) PO PRN (10:44)
[2019-08-11] MEDS: METHYLPHENIDATE HCL 5 MG TABLET PO SCH ×2 (10:44→17:28)
[2019-08-11] MEDS: hydrOXYzine PAMOATE 50 MG CAPSULE (FP) PO PRN ×2 (14:16→21:33)
[2019-08-11] MEDS: THIAMINE HCL 100 MG TABLET (FP) PO SCH (21:33)
[2019-08-11] MEDS: QUEtiapine FUMARATE 400 MG TABLET PO SCH (21:33)
[2019-08-12] MEDS ORDERED: METHADONE HCL 40 MG DISPERSABLE TABLET ONE (05:08)
[2019-08-12] MEDS ORDERED: METHADONE HCL 10 MG TABLET ONE (05:08)
[2019-08-12] MEDS: IBUPROFEN 400 MG TABLET (FP) PO PRN (06:13)
[2019-08-12] MEDS: GABAPENTIN 400 MG CAPSULE PO SCH ×3 (06:13→21:52)
[2019-08-12] MEDS: METHADONE 120 MG, METHADONE 10 MG PO SCH (06:14)
[2019-08-12] MEDS: METHYLPHENIDATE HCL 5 MG TABLET PO SCH ×2 (10:16→17:33)
[2019-08-12] MEDS: PRENATAL VITAMINS W/ FOLIC ACID TABLET (FP) PO SCH (10:16)
[2019-08-12] MEDS: NICOTINE 21 MG/24 HOURS TOPICAL PATCH TD SCH (10:17)
[2019-08-12] MEDS: hydrOXYzine PAMOATE 50 MG CAPSULE (FP) PO PRN ×2 (14:21→21:53)
[2019-08-12] MEDS: QUEtiapine FUMARATE 400 MG TABLET PO SCH (21:52)
[2019-08-12] MEDS: THIAMINE HCL 100 MG TABLET (FP) PO SCH (21:52)
[2019-08-13] MEDS: METHADONE 120 MG, METHADONE 10 MG PO SCH (06:01)
[2019-08-13] MEDS ORDERED: METHADONE HCL 40 MG DISPERSABLE TABLET ONE (06:01)
[2019-08-13] MEDS ORDERED: METHADONE HCL 10 MG TABLET ONE (06:01)
[2019-08-13] MEDS: GABAPENTIN 400 MG CAPSULE PO SCH ×3 (06:02→21:32)
[2019-08-13] MEDS: IBUPROFEN 400 MG TABLET (FP) PO PRN (06:02)
[2019-08-13] MEDS: PRENATAL VITAMINS W/ FOLIC ACID TABLET (FP) PO SCH (10:35)
[2019-08-13] MEDS: METHYLPHENIDATE HCL 5 MG TABLET PO SCH ×2 (10:35→17:19)
[2019-08-13] MEDS: NICOTINE 21 MG/24 HOURS TOPICAL PATCH TD SCH (10:35)
[2019-08-13] MEDS: hydrOXYzine PAMOATE 50 MG CAPSULE (FP) PO PRN ×2 (13:59→21:32)
[2019-08-13] MEDS: QUEtiapine FUMARATE 400 MG TABLET PO SCH (21:32)
[2019-08-13] MEDS: MELATONIN 5 MG TABLETS PO PRN (21:33)
[2019-08-13] MEDS: THIAMINE HCL 100 MG TABLET (FP) PO SCH (21:33)
[2019-08-14] MEDS ORDERED: METHADONE HCL 10 MG TABLET ONE (04:41)
[2019-08-14] MEDS ORDERED: METHADONE HCL 40 MG DISPERSABLE TABLET ONE (04:41)
[2019-08-14] MEDS: IBUPROFEN 400 MG TABLET (FP) PO PRN ×2 (06:08→17:30)
[2019-08-14] MEDS: GABAPENTIN 400 MG CAPSULE PO SCH ×3 (06:08→21:39)
[2019-08-14] MEDS: METHADONE 120 MG, METHADONE 10 MG PO SCH (06:09)
[2019-08-14] MEDS: METHYLPHENIDATE HCL 5 MG TABLET PO SCH ×3 (10:55→17:32)
[2019-08-14] MEDS: NICOTINE 21 MG/24 HOURS TOPICAL PATCH TD SCH (10:55)
[2019-08-14] MEDS: PRENATAL VITAMINS W/ FOLIC ACID TABLET (FP) PO SCH (10:55)
--- NOTE | 2019-08-14 11:19 | PN ---
[facility] Progress Note Note: PATIENT SEEN REGARDING TESTOSTERONE INJECTABLE MEDICATION FOR HYPOGONADISM. PATIENT STATES HE IS TREATED BY [facility] IN [place], [place]. FORGOT NAME OF PROVIDER. PREFERRED PHARMACY [facility] CALLED AT [phone] . MEDICATION CONFIRMED TESTOSTERONE 0.5 ML IM EVERY 2 WEEKS. LAST DATE OF PRESCRIPTION Apr X ONE MONTH. PATIENT HAS NOT HAD MEDICATION SINCE JUNE. DISCUSSED WITH DR. PATEL AND MD RECOMMENDS DUE TO NONCOMPLIANCE PATIENT IS TO FOLLOW UP WITH [facility] UPON DISCHARGE. PATIENT UPDATED ON RECOMMENDATION. Vital Signs Temperature 97.3 F L 08/14/19 07:23 Pulse Rate 73 08/14/19 07:23 Respiratory Rate 18 08/14/19 07:23 Blood Pressure 145/92 08/14/19 07:23 O2 Sat by Pulse Oximetry (%)
[2019-08-14] MEDS: hydrOXYzine PAMOATE 50 MG CAPSULE (FP) PO PRN ×2 (14:26→21:40)
[2019-08-14] MEDS: THIAMINE HCL 100 MG TABLET (FP) PO SCH (21:39)
[2019-08-14] MEDS: QUEtiapine FUMARATE 400 MG TABLET PO SCH (21:39)
[2019-08-14] MEDS: MELATONIN 5 MG TABLETS PO PRN (21:40)
[2019-08-15] MEDS ORDERED: METHADONE HCL 40 MG DISPERSABLE TABLET ONE (05:49)
[2019-08-15] MEDS ORDERED: METHADONE HCL 10 MG TABLET ONE (05:49)
[2019-08-15] MEDS: METHADONE 120 MG, METHADONE 10 MG PO SCH (05:56)
[2019-08-15] MEDS: GABAPENTIN 400 MG CAPSULE PO SCH ×3 (05:58→21:44)
[2019-08-15] MEDS: hydrOXYzine PAMOATE 50 MG CAPSULE (FP) PO PRN ×2 (05:58→21:44)
[2019-08-15] MEDS: IBUPROFEN 400 MG TABLET (FP) PO PRN (05:58)
[2019-08-15] MEDS: NICOTINE 21 MG/24 HOURS TOPICAL PATCH TD SCH (10:45)
[2019-08-15] MEDS: METHYLPHENIDATE HCL 5 MG TABLET PO SCH ×2 (10:45→17:24)
[2019-08-15] MEDS: PRENATAL VITAMINS W/ FOLIC ACID TABLET (FP) PO SCH (10:45)
[2019-08-15] MEDS: QUEtiapine FUMARATE 400 MG TABLET PO SCH (21:44)
[2019-08-15] MEDS: THIAMINE HCL 100 MG TABLET (FP) PO SCH (21:44)
[2019-08-15] MEDS: MELATONIN 5 MG TABLETS PO PRN (21:45)
[2019-08-16] MEDS ORDERED: METHADONE HCL 10 MG TABLET ONE (05:44)
[2019-08-16] MEDS ORDERED: METHADONE HCL 40 MG DISPERSABLE TABLET ONE (05:45)
[2019-08-16] MEDS: IBUPROFEN 400 MG TABLET (FP) PO PRN (05:55)
[2019-08-16] MEDS: GABAPENTIN 400 MG CAPSULE PO SCH ×3 (05:55→21:35)
[2019-08-16] MEDS: METHADONE 120 MG, METHADONE 10 MG PO SCH (05:57)
[2019-08-16] MEDS: NICOTINE 21 MG/24 HOURS TOPICAL PATCH TD SCH (10:47)
[2019-08-16] MEDS: PRENATAL VITAMINS W/ FOLIC ACID TABLET (FP) PO SCH (10:47)
[2019-08-16] MEDS: METHYLPHENIDATE HCL 5 MG TABLET PO SCH ×2 (10:48→17:33)
--- NOTE | 2019-08-16 14:06 | PN ---
S Progress Note Note: Patient requesting more Ritalin saying that he cannot focus. He was told by sba underwriter that he cannot have more Ritalin
[2019-08-16] MEDS: hydrOXYzine PAMOATE 50 MG CAPSULE (FP) PO PRN ×2 (14:25→21:36)
[2019-08-16] MEDS: THIAMINE HCL 100 MG TABLET (FP) PO SCH (21:35)
[2019-08-16] MEDS: QUEtiapine FUMARATE 400 MG TABLET PO SCH (21:35)
[2019-08-16] MEDS: MELATONIN 5 MG TABLETS PO PRN (21:35)
[2019-08-17] MEDS ORDERED: METHADONE HCL 40 MG DISPERSABLE TABLET ONE (06:04)
[2019-08-17] MEDS ORDERED: METHADONE HCL 10 MG TABLET ONE (06:04)
[2019-08-17] MEDS: IBUPROFEN 400 MG TABLET (FP) PO PRN (06:05)
[2019-08-17] MEDS: GABAPENTIN 400 MG CAPSULE PO SCH ×3 (06:05→21:35)
[2019-08-17] MEDS: METHADONE 120 MG, METHADONE 10 MG PO SCH (06:06)
[2019-08-17] MEDS: METHYLPHENIDATE HCL 5 MG TABLET PO SCH ×2 (10:10→17:36)
[2019-08-17] MEDS: PRENATAL VITAMINS W/ FOLIC ACID TABLET (FP) PO SCH (10:10)
[2019-08-17] MEDS: NICOTINE 21 MG/24 HOURS TOPICAL PATCH TD SCH (10:10)
[2019-08-17] MEDS: hydrOXYzine PAMOATE 50 MG CAPSULE (FP) PO PRN ×2 (14:27→21:35)
[2019-08-17] MEDS: MELATONIN 5 MG TABLETS PO PRN (21:35)
[2019-08-17] MEDS: QUEtiapine FUMARATE 400 MG TABLET PO SCH (21:35)
[2019-08-17] MEDS: THIAMINE HCL 100 MG TABLET (FP) PO SCH (21:35)
[2019-08-18] MEDS ORDERED: METHADONE HCL 10 MG TABLET ONE (06:10)
[2019-08-18] MEDS: GABAPENTIN 400 MG CAPSULE PO SCH ×3 (06:11→21:19)
[2019-08-18] MEDS: IBUPROFEN 400 MG TABLET (FP) PO PRN (06:11)
[2019-08-18] MEDS ORDERED: METHADONE HCL 40 MG DISPERSABLE TABLET ONE (06:11)
[2019-08-18] MEDS: METHADONE 120 MG, METHADONE 10 MG PO SCH (06:12)
[2019-08-18] MEDS: NICOTINE 21 MG/24 HOURS TOPICAL PATCH TD SCH (10:52)
[2019-08-18] MEDS: PRENATAL VITAMINS W/ FOLIC ACID TABLET (FP) PO SCH (10:52)
[2019-08-18] MEDS: METHYLPHENIDATE HCL 5 MG TABLET PO SCH ×2 (10:52→17:25)
[2019-08-18] MEDS: hydrOXYzine PAMOATE 50 MG CAPSULE (FP) PO PRN ×2 (13:05→21:19)
[2019-08-18] MEDS: THIAMINE HCL 100 MG TABLET (FP) PO SCH (21:19)
[2019-08-18] MEDS: QUEtiapine FUMARATE 400 MG TABLET PO SCH (21:19)
[2019-08-18] MEDS: MELATONIN 5 MG TABLETS PO PRN (21:19)
[2019-08-19] MEDS ORDERED: METHADONE HCL 40 MG DISPERSABLE TABLET ONE (06:02)
[2019-08-19] MEDS ORDERED: METHADONE HCL 10 MG TABLET ONE (06:02)
[2019-08-19] MEDS: GABAPENTIN 400 MG CAPSULE PO SCH ×3 (06:13→21:41)
[2019-08-19] MEDS: IBUPROFEN 400 MG TABLET (FP) PO PRN (06:14)
[2019-08-19] MEDS: METHADONE 120 MG, METHADONE 10 MG PO SCH (06:14)
[2019-08-19] MEDS: METHYLPHENIDATE HCL 5 MG TABLET PO SCH ×2 (10:35→17:32)
[2019-08-19] MEDS: PRENATAL VITAMINS W/ FOLIC ACID TABLET (FP) PO SCH (10:35)
[2019-08-19] MEDS: NICOTINE 21 MG/24 HOURS TOPICAL PATCH TD SCH (10:35)
[2019-08-19] MEDS: hydrOXYzine PAMOATE 50 MG CAPSULE (FP) PO PRN ×2 (14:11→21:42)
[2019-08-19] MEDS: QUEtiapine FUMARATE 400 MG TABLET PO SCH (21:41)
[2019-08-19] MEDS: MELATONIN 5 MG TABLETS PO PRN (21:42)
[2019-08-19] MEDS: THIAMINE HCL 100 MG TABLET (FP) PO SCH (21:42)
[2019-08-20] MEDS ORDERED: METHADONE HCL 40 MG DISPERSABLE TABLET ONE (04:25)
[2019-08-20] MEDS ORDERED: METHADONE HCL 10 MG TABLET ONE (04:25)
[2019-08-20] MEDS: IBUPROFEN 400 MG TABLET (FP) PO PRN (06:07)
[2019-08-20] MEDS: GABAPENTIN 400 MG CAPSULE PO SCH ×3 (06:07→21:37)
[2019-08-20] MEDS: METHADONE 120 MG, METHADONE 10 MG PO SCH (06:08)
[2019-08-20] MEDS: hydrOXYzine PAMOATE 50 MG CAPSULE (FP) PO PRN ×3 (06:08→21:37)
[2019-08-20] MEDS: NICOTINE 21 MG/24 HOURS TOPICAL PATCH TD SCH (10:22)
[2019-08-20] MEDS: PRENATAL VITAMINS W/ FOLIC ACID TABLET (FP) PO SCH (10:22)
[2019-08-20] MEDS: METHYLPHENIDATE HCL 5 MG TABLET PO SCH ×2 (10:22→17:44)
[2019-08-20] MEDS: QUEtiapine FUMARATE 400 MG TABLET PO SCH (21:37)
[2019-08-20] MEDS: MELATONIN 5 MG TABLETS PO PRN (21:37)
[2019-08-20] MEDS: THIAMINE HCL 100 MG TABLET (FP) PO SCH (21:37)
[2019-08-21] MEDS ORDERED: METHADONE HCL 40 MG DISPERSABLE TABLET ONE (05:55)
[2019-08-21] MEDS ORDERED: METHADONE HCL 10 MG TABLET ONE (05:55)
[2019-08-21] MEDS: IBUPROFEN 400 MG TABLET (FP) PO PRN (05:59)
[2019-08-21] MEDS: hydrOXYzine PAMOATE 50 MG CAPSULE (FP) PO PRN ×3 (05:59→21:37)
[2019-08-21] MEDS: GABAPENTIN 400 MG CAPSULE PO SCH ×3 (06:00→21:37)
[2019-08-21] MEDS: METHADONE 120 MG, METHADONE 10 MG PO SCH (06:00)
[2019-08-21] MEDS: NICOTINE 21 MG/24 HOURS TOPICAL PATCH TD SCH (10:38)
[2019-08-21] MEDS: METHYLPHENIDATE HCL 5 MG TABLET PO SCH ×2 (10:38→17:45)
[2019-08-21] MEDS: PRENATAL VITAMINS W/ FOLIC ACID TABLET (FP) PO SCH (10:38)
[2019-08-21] MEDS: THIAMINE HCL 100 MG TABLET (FP) PO SCH (21:37)
[2019-08-21] MEDS: MELATONIN 5 MG TABLETS PO PRN (21:37)
[2019-08-21] MEDS: QUEtiapine FUMARATE 400 MG TABLET PO SCH (21:37)
[2019-08-22] MEDS ORDERED: METHADONE HCL 10 MG TABLET ONE (05:46)
[2019-08-22] MEDS ORDERED: METHADONE HCL 40 MG DISPERSABLE TABLET ONE (05:46)
[2019-08-22] MEDS: GABAPENTIN 400 MG CAPSULE PO SCH ×3 (05:47→21:19)
[2019-08-22] MEDS: IBUPROFEN 400 MG TABLET (FP) PO PRN (05:47)
[2019-08-22] MEDS: METHADONE 120 MG, METHADONE 10 MG PO SCH (05:48)
[2019-08-22] MEDS: hydrOXYzine PAMOATE 50 MG CAPSULE (FP) PO PRN ×3 (05:48→21:19)
[2019-08-22] MEDS ORDERED: METHADONE HCL 10 MG TABLET PO SCH (06:00)
[2019-08-22] MEDS: METHYLPHENIDATE HCL 5 MG TABLET PO SCH ×2 (10:37→17:17)
[2019-08-22] MEDS: PRENATAL VITAMINS W/ FOLIC ACID TABLET (FP) PO SCH (10:37)
[2019-08-22] MEDS: NICOTINE 21 MG/24 HOURS TOPICAL PATCH TD SCH (10:38)
[2019-08-22] MEDS: MELATONIN 5 MG TABLETS PO PRN (21:18)
[2019-08-22] MEDS: QUEtiapine FUMARATE 400 MG TABLET PO SCH (21:19)
[2019-08-22] MEDS: THIAMINE HCL 100 MG TABLET (FP) PO SCH (21:19)
[2019-08-23] MEDS ORDERED: METHADONE HCL 10 MG TABLET ONE (05:00)
[2019-08-23] MEDS ORDERED: METHADONE HCL 40 MG DISPERSABLE TABLET ONE (05:00)
[2019-08-23] MEDS: IBUPROFEN 400 MG TABLET (FP) PO PRN (05:59)
[2019-08-23] MEDS: hydrOXYzine PAMOATE 50 MG CAPSULE (FP) PO PRN ×3 (05:59→21:27)
[2019-08-23] MEDS: GABAPENTIN 400 MG CAPSULE PO SCH ×3 (06:00→21:26)
[2019-08-23] MEDS: METHADONE 120 MG, METHADONE 10 MG PO SCH (06:01)
[2019-08-23] MEDS: NICOTINE 21 MG/24 HOURS TOPICAL PATCH TD SCH (10:34)
[2019-08-23] MEDS: PRENATAL VITAMINS W/ FOLIC ACID TABLET (FP) PO SCH (10:34)
[2019-08-23] MEDS: METHYLPHENIDATE HCL 5 MG TABLET PO SCH ×2 (10:35→17:16)
[2019-08-23] MEDS: QUEtiapine FUMARATE 400 MG TABLET PO SCH (21:26)
[2019-08-23] MEDS: MELATONIN 5 MG TABLETS PO PRN (21:27)
[2019-08-23] MEDS: THIAMINE HCL 100 MG TABLET (FP) PO SCH (21:27)
[2019-08-24] MEDS ORDERED: METHADONE HCL 40 MG DISPERSABLE TABLET ONE (05:43)
[2019-08-24] MEDS ORDERED: METHADONE HCL 10 MG TABLET ONE (05:43)
[2019-08-24] MEDS: hydrOXYzine PAMOATE 50 MG CAPSULE (FP) PO PRN ×3 (06:00→21:31)
[2019-08-24] MEDS: GABAPENTIN 400 MG CAPSULE PO SCH ×3 (06:00→21:30)
[2019-08-24] MEDS: IBUPROFEN 400 MG TABLET (FP) PO PRN (06:00)
[2019-08-24] MEDS: METHADONE 120 MG, METHADONE 10 MG PO SCH (06:02)
[2019-08-24] MEDS: NICOTINE 21 MG/24 HOURS TOPICAL PATCH TD SCH (10:19)
[2019-08-24] MEDS: PRENATAL VITAMINS W/ FOLIC ACID TABLET (FP) PO SCH (10:19)
[2019-08-24] MEDS: METHYLPHENIDATE HCL 5 MG TABLET PO SCH ×2 (10:19→17:37)
[2019-08-24] MEDS: QUEtiapine FUMARATE 400 MG TABLET PO SCH (21:30)
[2019-08-24] MEDS: THIAMINE HCL 100 MG TABLET (FP) PO SCH (21:31)
[2019-08-24] MEDS: MELATONIN 5 MG TABLETS PO PRN (21:31)
[2019-08-25] MEDS ORDERED: METHADONE HCL 40 MG DISPERSABLE TABLET ONE (04:33)
[2019-08-25] MEDS ORDERED: METHADONE HCL 10 MG TABLET ONE (04:33)
[2019-08-25] MEDS: hydrOXYzine PAMOATE 50 MG CAPSULE (FP) PO PRN ×3 (06:02→21:43)
[2019-08-25] MEDS: IBUPROFEN 400 MG TABLET (FP) PO PRN (06:02)
[2019-08-25] MEDS: GABAPENTIN 400 MG CAPSULE PO SCH ×3 (06:02→21:42)
[2019-08-25] MEDS: METHADONE 120 MG, METHADONE 10 MG PO SCH (06:03)
[2019-08-25] MEDS: PRENATAL VITAMINS W/ FOLIC ACID TABLET (FP) PO SCH (10:30)
[2019-08-25] MEDS: NICOTINE 21 MG/24 HOURS TOPICAL PATCH TD SCH (10:30)
[2019-08-25] MEDS: METHYLPHENIDATE HCL 5 MG TABLET PO SCH ×2 (10:30→17:44)
[2019-08-25] MEDS: QUEtiapine FUMARATE 400 MG TABLET PO SCH (21:42)
[2019-08-25] MEDS: THIAMINE HCL 100 MG TABLET (FP) PO SCH (21:43)
[2019-08-25] MEDS: MELATONIN 5 MG TABLETS PO PRN (21:43)
[2019-08-26] MEDS ORDERED: METHADONE HCL 40 MG DISPERSABLE TABLET ONE (04:25)
[2019-08-26] MEDS ORDERED: METHADONE HCL 10 MG TABLET ONE (04:25)
[2019-08-26] MEDS: hydrOXYzine PAMOATE 50 MG CAPSULE (FP) PO PRN ×3 (06:01→21:20)
[2019-08-26] MEDS: IBUPROFEN 400 MG TABLET (FP) PO PRN (06:01)
[2019-08-26] MEDS: METHADONE 120 MG, METHADONE 10 MG PO SCH (06:01)
[2019-08-26] MEDS: GABAPENTIN 400 MG CAPSULE PO SCH ×3 (06:01→21:20)
[2019-08-26] MEDS: MAG HYDROX/AL HYDROX/SIMETH 30 ML UNIT-DOSE CUP PO PRN ×2 (06:53→20:40)
[2019-08-26] MEDS: PRENATAL VITAMINS W/ FOLIC ACID TABLET (FP) PO SCH (10:28)
[2019-08-26] MEDS: METHYLPHENIDATE HCL 5 MG TABLET PO SCH ×2 (10:28→18:12)
[2019-08-26] MEDS: NICOTINE 21 MG/24 HOURS TOPICAL PATCH TD SCH (10:29)
[2019-08-26] MEDS: QUEtiapine FUMARATE 400 MG TABLET PO SCH (21:20)
[2019-08-26] MEDS: MELATONIN 5 MG TABLETS PO PRN (21:20)
[2019-08-26] MEDS: THIAMINE HCL 100 MG TABLET (FP) PO SCH (21:20)
[2019-08-27] MEDS ORDERED: METHADONE HCL 10 MG TABLET ONE (04:53)
[2019-08-27] MEDS ORDERED: METHADONE HCL 40 MG DISPERSABLE TABLET ONE (04:53)
[2019-08-27] MEDS: hydrOXYzine PAMOATE 50 MG CAPSULE (FP) PO PRN ×3 (06:02→21:20)
[2019-08-27] MEDS: IBUPROFEN 400 MG TABLET (FP) PO PRN (06:02)
[2019-08-27] MEDS: GABAPENTIN 400 MG CAPSULE PO SCH ×3 (06:03→21:20)
[2019-08-27] MEDS: METHADONE 120 MG, METHADONE 10 MG PO SCH (06:04)
[2019-08-27] MEDS: PRENATAL VITAMINS W/ FOLIC ACID TABLET (FP) PO SCH (10:07)
[2019-08-27] MEDS: METHYLPHENIDATE HCL 5 MG TABLET PO SCH ×2 (10:07→17:28)
[2019-08-27] MEDS: NICOTINE 21 MG/24 HOURS TOPICAL PATCH TD SCH (10:08)
[2019-08-27] MEDS: QUEtiapine FUMARATE 400 MG TABLET PO SCH (21:20)
[2019-08-27] MEDS: THIAMINE HCL 100 MG TABLET (FP) PO SCH (21:20)
[2019-08-27] MEDS: MELATONIN 5 MG TABLETS PO PRN (21:21)
[2019-08-28] MEDS ORDERED: METHADONE HCL 40 MG DISPERSABLE TABLET ONE (05:34)
[2019-08-28] MEDS ORDERED: METHADONE HCL 10 MG TABLET ONE (05:34)
[2019-08-28] MEDS: METHADONE 120 MG, METHADONE 10 MG PO SCH (05:57)
[2019-08-28] MEDS: GABAPENTIN 400 MG CAPSULE PO SCH ×3 (05:57→21:27)
[2019-08-28] MEDS: IBUPROFEN 400 MG TABLET (FP) PO PRN (05:59)
[2019-08-28] MEDS: hydrOXYzine PAMOATE 50 MG CAPSULE (FP) PO PRN ×3 (05:59→21:27)
[2019-08-28] MEDS ORDERED: METHADONE HCL 40 MG DISPERSABLE TABLET PO SCH (06:00)
[2019-08-28] MEDS: MAG HYDROX/AL HYDROX/SIMETH 30 ML UNIT-DOSE CUP PO PRN ×2 (06:54→17:46)
[2019-08-28] MEDS: METHYLPHENIDATE HCL 5 MG TABLET PO SCH ×3 (10:14→17:46)
[2019-08-28] MEDS: PRENATAL VITAMINS W/ FOLIC ACID TABLET (FP) PO SCH (10:15)
[2019-08-28] MEDS: NICOTINE 21 MG/24 HOURS TOPICAL PATCH TD SCH (10:15)
[2019-08-28] MEDS: MELATONIN 5 MG TABLETS PO PRN (21:27)
[2019-08-28] MEDS: THIAMINE HCL 100 MG TABLET (FP) PO SCH (21:27)
[2019-08-28] MEDS: QUEtiapine FUMARATE 400 MG TABLET PO SCH (21:27)
[2019-08-29] MEDS ORDERED: METHADONE HCL 10 MG TABLET ONE (05:47)
[2019-08-29] MEDS ORDERED: METHADONE HCL 40 MG DISPERSABLE TABLET ONE (05:47)
[2019-08-29] MEDS: IBUPROFEN 400 MG TABLET (FP) PO PRN (06:11)
[2019-08-29] MEDS: hydrOXYzine PAMOATE 50 MG CAPSULE (FP) PO PRN ×3 (06:11→21:23)
[2019-08-29] MEDS: METHADONE 120 MG, METHADONE 10 MG PO SCH (06:12)
[2019-08-29] MEDS: GABAPENTIN 400 MG CAPSULE PO SCH ×3 (06:12→21:23)
[2019-08-29] MEDS: MAG HYDROX/AL HYDROX/SIMETH 30 ML UNIT-DOSE CUP PO PRN (06:56)
[2019-08-29] MEDS: PRENATAL VITAMINS W/ FOLIC ACID TABLET (FP) PO SCH (10:41)
[2019-08-29] MEDS: NICOTINE 21 MG/24 HOURS TOPICAL PATCH TD SCH (10:41)
[2019-08-29] MEDS: METHYLPHENIDATE HCL 5 MG TABLET PO SCH ×2 (10:41→17:50)
[2019-08-29] MEDS: MELATONIN 5 MG TABLETS PO PRN (21:23)
[2019-08-29] MEDS: THIAMINE HCL 100 MG TABLET (FP) PO SCH (21:23)
[2019-08-29] MEDS: QUEtiapine FUMARATE 400 MG TABLET PO SCH (21:23)
[2019-08-30] MEDS ORDERED: METHADONE HCL 10 MG TABLET ONE (05:24)
[2019-08-30] MEDS ORDERED: METHADONE HCL 40 MG DISPERSABLE TABLET ONE (05:25)
[2019-08-30] MEDS: IBUPROFEN 400 MG TABLET (FP) PO PRN (06:02)
[2019-08-30] MEDS: GABAPENTIN 400 MG CAPSULE PO SCH ×3 (06:02→21:45)
[2019-08-30] MEDS: METHADONE 120 MG, METHADONE 10 MG PO SCH (06:03)
[2019-08-30] MEDS: hydrOXYzine PAMOATE 50 MG CAPSULE (FP) PO PRN ×3 (06:03→21:44)
[2019-08-30] MEDS: METHYLPHENIDATE HCL 5 MG TABLET PO SCH ×2 (10:44→17:38)
[2019-08-30] MEDS: NICOTINE 21 MG/24 HOURS TOPICAL PATCH TD SCH (10:44)
[2019-08-30] MEDS: PRENATAL VITAMINS W/ FOLIC ACID TABLET (FP) PO SCH (10:44)
[2019-08-30] MEDS: MELATONIN 5 MG TABLETS PO PRN (21:44)
[2019-08-30] MEDS: MAG HYDROX/AL HYDROX/SIMETH 30 ML UNIT-DOSE CUP PO PRN (21:44)
[2019-08-30] MEDS: THIAMINE HCL 100 MG TABLET (FP) PO SCH (21:45)
[2019-08-30] MEDS: QUEtiapine FUMARATE 400 MG TABLET PO SCH (21:45)
[2019-08-31] MEDS ORDERED: METHADONE HCL 40 MG DISPERSABLE TABLET ONE (05:13)
[2019-08-31] MEDS ORDERED: METHADONE HCL 10 MG TABLET ONE (05:13)
[2019-08-31] MEDS: MAG HYDROX/AL HYDROX/SIMETH 30 ML UNIT-DOSE CUP PO PRN ×2 (05:14→19:38)
[2019-08-31] MEDS: IBUPROFEN 400 MG TABLET (FP) PO PRN (05:58)
[2019-08-31] MEDS: hydrOXYzine PAMOATE 50 MG CAPSULE (FP) PO PRN ×3 (05:58→21:20)
[2019-08-31] MEDS: GABAPENTIN 400 MG CAPSULE PO SCH ×3 (05:59→21:21)
[2019-08-31] MEDS: METHADONE 120 MG, METHADONE 10 MG PO SCH (05:59)
[2019-08-31] MEDS: PRENATAL VITAMINS W/ FOLIC ACID TABLET (FP) PO SCH (10:35)
[2019-08-31] MEDS: METHYLPHENIDATE HCL 5 MG TABLET PO SCH ×2 (10:35→17:29)
[2019-08-31] MEDS: NICOTINE 21 MG/24 HOURS TOPICAL PATCH TD SCH (10:36)
[2019-08-31] MEDS: QUEtiapine FUMARATE 400 MG TABLET PO SCH (21:21)
[2019-08-31] MEDS: MELATONIN 5 MG TABLETS PO PRN (21:21)
[2019-08-31] MEDS: THIAMINE HCL 100 MG TABLET (FP) PO SCH (21:21)
[2019-09-01] MEDS ORDERED: METHADONE HCL 10 MG TABLET ONE (04:14)
[2019-09-01] MEDS ORDERED: METHADONE HCL 40 MG DISPERSABLE TABLET ONE (04:14)
[2019-09-01] MEDS: hydrOXYzine PAMOATE 50 MG CAPSULE (FP) PO PRN ×3 (05:51→21:17)
[2019-09-01] MEDS: IBUPROFEN 400 MG TABLET (FP) PO PRN (05:52)
[2019-09-01] MEDS: GABAPENTIN 400 MG CAPSULE PO SCH ×3 (05:52→21:15)
[2019-09-01] MEDS: METHADONE 120 MG, METHADONE 10 MG PO SCH (05:53)
[2019-09-01] MEDS: MAG HYDROX/AL HYDROX/SIMETH 30 ML UNIT-DOSE CUP PO PRN (06:47)
--- NOTE | 2019-09-01 09:09 | PN ---
[facility] Progress Note Note: Pt c/o heartburn and acid reflux, Mylanta not effective. Vital Signs - 24 hr 09/01/19 09/01/19 09/01/19 00:30 03:30 07:19 Temperature 98.7 F Pulse Rate 88 Respiratory 20 20 18 Rate Blood Pressure 122/70 Alert o x 3 nad oob ambulating with steady gait A/P Heartburn morbid Obesity Pepcid 20 mg po BID D/W pt to elevate head on pillow 45 degree while in bed. increase po fluids
[2019-09-01] MEDS: NICOTINE 21 MG/24 HOURS TOPICAL PATCH TD SCH (10:25)
[2019-09-01] MEDS: PRENATAL VITAMINS W/ FOLIC ACID TABLET (FP) PO SCH (10:25)
[2019-09-01] MEDS: FAMOTIDINE 20 MG TABLET PO SCH ×2 (10:25→21:16)
[2019-09-01] MEDS: METHYLPHENIDATE HCL 5 MG TABLET PO SCH ×2 (10:25→17:39)
[2019-09-01] MEDS: THIAMINE HCL 100 MG TABLET (FP) PO SCH (21:16)
[2019-09-01] MEDS: QUEtiapine FUMARATE 400 MG TABLET PO SCH (21:16)
[2019-09-02] MEDS ORDERED: METHADONE HCL 40 MG DISPERSABLE TABLET ONE (04:40)
[2019-09-02] MEDS ORDERED: METHADONE HCL 10 MG TABLET ONE (04:40)
[2019-09-02] MEDS: IBUPROFEN 400 MG TABLET (FP) PO PRN (05:59)
[2019-09-02] MEDS: GABAPENTIN 400 MG CAPSULE PO SCH ×3 (05:59→21:49)
[2019-09-02] MEDS: hydrOXYzine PAMOATE 50 MG CAPSULE (FP) PO PRN ×3 (05:59→21:50)
[2019-09-02] MEDS: METHADONE 120 MG, METHADONE 10 MG PO SCH (06:00)
[2019-09-02] MEDS: NICOTINE 21 MG/24 HOURS TOPICAL PATCH TD SCH (10:23)
[2019-09-02] MEDS: FAMOTIDINE 20 MG TABLET PO SCH ×2 (10:23→21:50)
[2019-09-02] MEDS: PRENATAL VITAMINS W/ FOLIC ACID TABLET (FP) PO SCH (10:23)
[2019-09-02] MEDS: METHYLPHENIDATE HCL 5 MG TABLET PO SCH ×2 (10:23→17:30)
[2019-09-02] MEDS: THIAMINE HCL 100 MG TABLET (FP) PO SCH (21:50)
[2019-09-02] MEDS: QUEtiapine FUMARATE 400 MG TABLET PO SCH (21:50)
[2019-09-02] MEDS: MELATONIN 5 MG TABLETS PO PRN (21:50)
[2019-09-03] MEDS ORDERED: METHADONE HCL 40 MG DISPERSABLE TABLET ONE (04:24)
[2019-09-03] MEDS ORDERED: METHADONE HCL 10 MG TABLET ONE (04:24)
[2019-09-03] MEDS: METHADONE 120 MG, METHADONE 10 MG PO SCH (06:12)
[2019-09-03] MEDS: GABAPENTIN 400 MG CAPSULE PO SCH ×3 (06:13→21:56)
[2019-09-03] MEDS: hydrOXYzine PAMOATE 50 MG CAPSULE (FP) PO PRN ×2 (06:13→21:56)
[2019-09-03] MEDS: IBUPROFEN 400 MG TABLET (FP) PO PRN (06:14)
[2019-09-03] MEDS: FAMOTIDINE 20 MG TABLET PO SCH ×2 (10:02→21:56)
[2019-09-03] MEDS: PRENATAL VITAMINS W/ FOLIC ACID TABLET (FP) PO SCH (10:02)
[2019-09-03] MEDS: NICOTINE 21 MG/24 HOURS TOPICAL PATCH TD SCH (10:02)
[2019-09-03] MEDS: METHYLPHENIDATE HCL 5 MG TABLET PO SCH ×2 (10:02→17:45)
--- NOTE | 2019-09-03 13:45 | PN ---
[facility] Progress Note Note: Patient is scheduled for discharge tomorrow. Scripts for 30 days supply of medications(Seroquel 400 mg/hs, Gabapentin 800 mg/tid) [facility] at [address] [place], [place] [id number]
[2019-09-03] MEDS: THIAMINE HCL 100 MG TABLET (FP) PO SCH (21:56)
[2019-09-03] MEDS: QUEtiapine FUMARATE 400 MG TABLET PO SCH (21:56)
[2019-09-03] MEDS: MELATONIN 5 MG TABLETS PO PRN (21:56)
[2019-09-04] MEDS: GABAPENTIN 400 MG CAPSULE PO SCH (05:58)
[2019-09-04] MEDS: hydrOXYzine PAMOATE 50 MG CAPSULE (FP) PO PRN (05:59)
[2019-09-04] MEDS: IBUPROFEN 400 MG TABLET (FP) PO PRN (05:59)
[2019-09-04] MEDS ORDERED: METHADONE HCL 40 MG DISPERSABLE TABLET ONE (06:10)
[2019-09-04] MEDS ORDERED: METHADONE HCL 10 MG TABLET ONE (06:10)
[2019-09-04] MEDS ORDERED: METHADONE HCL 10 MG TABLET PO SCH (06:15)
[2019-09-04] MEDS ORDERED: METHADONE 120 MG, METHADONE 10 MG PO SCH (06:15)
[2019-09-04 07:50] VITALS: BP 141/74; PULSE 83; TEMP 97.5
--- NOTE | 2019-09-04 09:40 | DS ---
[facility] Rehab Discharge Summary - [facility] Rehab Discharge Summary Admission Date: 08/07/19 Discharge Date: 09/04/19 - History Present History: Alcohol dependence, MMTP Additional Comments: Pt is a 34 y/o male with a hx of ISAÍAS admitted to rehab after completing detox on . Pt met with his counselor and has been referred to [facility] aftercare for follow up treatment. Pt has primary care with [facility] with Dr King Navarro. Pt has Endocrinology Appointmens on 09/06/19 @ 2; 30 pm and PCP appointment @ 3:00. Pertinent Past History: Asthma Hypogonadism Morbid Obesity Seasonal Allergies ADHD Anxiety Disorder - Discharge Physical Exam Vital Signs: Vital Signs Temperature 97.5 F L 09/04/19 07:47 Pulse Rate 83 09/04/19 07:47 Respiratory Rate 18 09/04/19 07:47 Blood Pressure 141/74 09/04/19 07:47 O2 Sat by Pulse Oximetry (%) Alert o x 3,denies s/h/i nad oob ambulating with steady gait cardiac:s1 s2 rrr lungs:cta,edmund. abdomen:+bs,nt,sft,+++fatty extremities/skin:no edema;skin intact. Pertinent Admission Physical Exam Findings: Status Unchanged and stable since admission from detox. - Treatment Discharge Condition: Discharge condition good Hospital Course: Rehabilitated safely and responded well [facility] after[facility] referral accepted to [facility] [place]. Pt participated in groups and individual sessions while in treatment. - Medication Discharge Medications: Ambulatory Orders Gabapentin 800 mg PO TID #90 tablet 09/03/19 Quetiapine Fumarate [Seroquel -] 400 mg PO HS #30 tablet 09/03/19 - Medication-Assisted Treatment (MAT) Medication-Assisted Treatment (MAT): No - Discharge Instructions Diet, activity, other medical instructions: Diet:Regular Activity:oob ad manisha Other medical instructions:follow up with [facility] aftercare recommendations as scheduled. Follow up with primary care provider and specialist appointments as scheduled. Primary Care Location: [place] [address] - Diagnosis (1) Alcohol dependence Current Visit: Yes Status: Chronic Qualifiers: Substance use status: uncomplicated Qualified Code(s): F10.20 - Alcohol dependence, uncomplicated (2) Nicotine dependence Current Visit: Yes Status: Chronic Qualifiers: Nicotine product type: cigarettes Substance use status: uncomplicated Qualified Code(s): F17.210 - Nicotine dependence, cigarettes, uncomplicated (3) Asthma Current Visit: Yes Status: Chronic Qualifiers: Asthma severity: unspecified severity Asthma persistence: unspecified Asthma complication type: uncomplicated Qualified Code(s): J45.909 - Unspecified asthma, uncomplicated (4) Hypogonadism Current Visit: Yes Status: Chronic (5) Obesity Current Visit: Yes Status: Chronic Qualifiers: Obesity classification: adult class 3 (BMI >= 40) Body mass index: BMI 45.0 -49.9 (6) Methadone maintenance therapy patient Current Visit: Yes Status: Chronic - Follow-up Referral Minutes to complete discharge: 30 - AMA Did Patient Leave Against Medical Advice: No
[2019-09-04] MEDS: FAMOTIDINE 20 MG TABLET PO SCH (10:36)
[2019-09-04] MEDS: NICOTINE 21 MG/24 HOURS TOPICAL PATCH TD SCH (10:36)
[2019-09-04] MEDS: PRENATAL VITAMINS W/ FOLIC ACID TABLET (FP) PO SCH (10:36)
== END 2019-09-04 12:35 | disposition home or self-care (01) | DRG 772 ==
LOC: YASAS 13:32 → Y5N 13:34
PROVIDERS: ADMIT Allergy & Immunology; ATTEND Allergy & Immunology
PROC: HZ42ZZZ Group Counseling for Substance Abuse Treatment, Cognitive-Behavioral (ICD-10-PCS; principal; 2019-08-07)
DX: F10.20 Alcohol dependence, uncomplicated (principal); F11.20 Opioid dependence, uncomplicated; F17.210 Nicotine dependence, cigarettes, uncomplicated; F10.280 Alcohol dependence with alcohol-induced anxiety disorder; F10.282 Alcohol dependence with alcohol-induced sleep disorder; F41.9 Anxiety disorder, unspecified; F90.9 Attention-deficit hyperactivity disorder, unspecified type; J45.909 Unspecified asthma, uncomplicated; E29.1 Testicular hypofunction; R12 Heartburn; E66.01 Morbid (severe) obesity due to excess calories; Z68.42 Body mass index [BMI] 45.0-49.9, adult

== ENCOUNTER 2020-06-17 10:20 | Inpatient (IN) | payer OTHER ==
[2020-06-17 11:15] VITALS: BMI 43.9
[2020-06-17] MEDS ORDERED: chlordiazePOXIDE HCL 25 MG CAPSULE ONE (11:38)
[2020-06-17] MEDS ORDERED: ONDANSETRON *ODT* 4 MG TABLET ONE ×2 (11:38→11:39)
[2020-06-17] MEDS ORDERED: IBUPROFEN 400 MG TABLET (FP) PO ONE (11:38)
[2020-06-17] MEDS: chlordiazePOXIDE HCL 25 MG CAPSULE PO PRN ×2 (11:45→15:50)
[2020-06-17] MEDS ORDERED: ALBUTEROL SO4 HFA INHALER IH PRN ×2 (11:45→12:36)
[2020-06-17] MEDS ORDERED: ONDANSETRON *ODT* 4 MG TABLET SL PRN (11:46)
[2020-06-17] MEDS ORDERED: IBUPROFEN 400 MG TABLET (FP) PO PRN (11:46)
[2020-06-17] MEDS ORDERED: MAGNESIUM CITRATE 300 ML BOTTLE PO PRN (11:46)
[2020-06-17] MEDS ORDERED: MENTHOL/PHENOL 1 EACH UD MM PRN (11:46)
[2020-06-17] MEDS ORDERED: MAGNESIUM HYDROX 2400MG/30ML ORAL SUSPENSION 30 ML CUP PO PRN (11:46)
[2020-06-17] MEDS ORDERED: NICOTINE POLACRILEX 2 MG GUM BUC PRN (11:46)
[2020-06-17] MEDS ORDERED: BISMUTH SUBSALICYLATE 262 MG/15 ML BTL PO PRN (11:46)
[2020-06-17] MEDS ORDERED: ACETAMINOPHEN 325 MG TABLET (FP) PO PRN (11:46)
[2020-06-17] MEDS: cloNIDine HCL 0.1 MG TABLET PO SCH ×2 (12:26→22:09)
[2020-06-17] MEDS: NICOTINE 21 MG/24 HOURS TOPICAL PATCH TD SCH (12:26)
[2020-06-17] MEDS: MAG HYDROX/AL HYDROX/SIMETH 30 ML UNIT-DOSE CUP PO PRN ×2 (12:26→17:54)
[2020-06-17] MEDS: hydrOXYzine PAMOATE 25 MG CAPSULE (FP) PO SCH ×3 (13:07→22:10)
[2020-06-17 14:51] LABS: POTASSIUM 4.2 mmol/L (3.5-5.1)
[2020-06-17 14:52] LABS: HEMATOCRIT 44.6 % (35.4-49); HEMOGLOBIN 15.2 GM/dL (11.7-16.9); MCH 30.6 pg (25.7-33.7); MCHC 34.2 g/dl (32.0-35.9); MEAN CELL VOLUME 89.5 fl (80-96); MEAN PLT VOLUME 8.3 fl (7.5-11.1); PLATELET COUNT 218 K/MM3 (134-434); RBC 4.98 M/mm3 (4.00-5.60); RDW 13.2 % (11.9-15.9); WHITE BLOOD COUNT 7.7 K/mm3 (4.0-10.0)
[2020-06-17 14:57] LABS: CALCIUM 9.3 mg/dL (8.5-10.1)
[2020-06-17 14:58] LABS: ALBUMIN 3.9 g/dl (3.4-5.0); BLOOD UREA NITROGEN 8.7 mg/dL (7-18)
[2020-06-17 15:02] LABS: BILIRUBIN,TOTAL 0.3 mg/dL (0.2-1); TOT PROT 7.5 g/dl (6.4-8.2)
[2020-06-17] MEDS: chlordiazePOXIDE HCL 25 MG CAPSULE PO SCH ×2 (17:54→22:09)
[2020-06-17] MEDS ORDERED: QUEtiapine FUMARATE 200 MG TABLET PO SCH (22:00)
[2020-06-17] MEDS: THIAMINE HCL 100 MG TABLET (FP) PO SCH (22:09)
[2020-06-17] MEDS: QUEtiapine FUMARATE 100 MG TABLET (FP) PO SCH (22:09)
[2020-06-17] MEDS: MELATONIN 5 MG TABLETS PO SCH (22:10)
[2020-06-18] MEDS ORDERED: METHADONE HCL 10 MG TABLET ONE (04:24)
[2020-06-18] MEDS ORDERED: METHADONE HCL 40 MG DISPERSABLE TABLET ONE (04:25)
[2020-06-18] MEDS: METHADONE 160 MG, METHADONE 10 MG PO SCH (05:45)
[2020-06-18] MEDS: hydrOXYzine PAMOATE 25 MG CAPSULE (FP) PO SCH ×5 (05:46→22:05)
[2020-06-18] MEDS: chlordiazePOXIDE HCL 25 MG CAPSULE PO SCH ×4 (05:46→22:04)
[2020-06-18] MEDS ORDERED: METHADONE HCL 40 MG DISPERSABLE TABLET PO SCH (06:00)
[2020-06-18] MEDS: MAG HYDROX/AL HYDROX/SIMETH 30 ML UNIT-DOSE CUP PO PRN ×2 (06:20→12:31)
[2020-06-18] MEDS: cloNIDine HCL 0.1 MG TABLET PO SCH ×2 (10:05→22:04)
[2020-06-18] MEDS: NICOTINE 21 MG/24 HOURS TOPICAL PATCH TD SCH (10:06)
[2020-06-18] MEDS: PRENATAL VITAMINS W/ FOLIC ACID TABLET (FP) PO SCH (10:07)
[2020-06-18] MEDS ORDERED: COLLOIDAL OATMEAL 1 BAR EACH TP PRN (12:11)
[2020-06-18] MEDS: chlordiazePOXIDE HCL 25 MG CAPSULE PO PRN (12:30)
[2020-06-18] MEDS: FAMOTIDINE 20 MG TABLET PO SCH ×2 (13:44→22:05)
[2020-06-18] MEDS: NICOTINE POLACRILEX 4 MG GUM BUC PRN ×2 (17:44→22:48)
[2020-06-18] MEDS: QUEtiapine FUMARATE 100 MG TABLET (FP) PO SCH (22:03)
[2020-06-18] MEDS: THIAMINE HCL 100 MG TABLET (FP) PO SCH (22:03)
[2020-06-18] MEDS: MELATONIN 5 MG TABLETS PO SCH (22:04)
[2020-06-19] MEDS ORDERED: METHADONE HCL 10 MG TABLET ONE (04:54)
[2020-06-19] MEDS ORDERED: METHADONE HCL 40 MG DISPERSABLE TABLET ONE (04:55)
[2020-06-19] MEDS: METHADONE 160 MG, METHADONE 10 MG PO SCH (05:36)
[2020-06-19] MEDS: hydrOXYzine PAMOATE 25 MG CAPSULE (FP) PO SCH ×5 (05:37→22:09)
[2020-06-19] MEDS: chlordiazePOXIDE HCL 25 MG CAPSULE PO SCH ×4 (05:37→22:09)
[2020-06-19] MEDS: NICOTINE POLACRILEX 4 MG GUM BUC PRN ×4 (05:43→22:12)
[2020-06-19] MEDS: chlordiazePOXIDE HCL 25 MG CAPSULE PO PRN ×2 (07:42→19:03)
[2020-06-19] MEDS: PRENATAL VITAMINS W/ FOLIC ACID TABLET (FP) PO SCH (10:12)
[2020-06-19] MEDS: NICOTINE 21 MG/24 HOURS TOPICAL PATCH TD SCH (10:13)
[2020-06-19] MEDS: cloNIDine HCL 0.1 MG TABLET PO SCH ×2 (10:13→22:09)
[2020-06-19] MEDS: FAMOTIDINE 20 MG TABLET PO SCH ×2 (10:13→22:10)
[2020-06-19] MEDS: ACETAMINOPHEN 325 MG TABLET (FP) PO PRN ×2 (10:14→19:31)
[2020-06-19] MEDS: METHOCARBAMOL 500 MG TABLET PO PRN (19:04)
[2020-06-19] MEDS: LIDOCAINE VISCOUS 2% ORAL/TOP 20 ML UNIT-DOSE CUP MM PRN (20:25)
[2020-06-19] MEDS: GABAPENTIN 300 MG CAPSULE PO SCH (22:09)
[2020-06-19] MEDS: THIAMINE HCL 100 MG TABLET (FP) PO SCH (22:09)
[2020-06-19] MEDS: QUEtiapine FUMARATE 100 MG TABLET (FP) PO SCH (22:09)
[2020-06-19] MEDS: MELATONIN 5 MG TABLETS PO SCH (22:10)
[2020-06-20] MEDS ORDERED: chlordiazePOXIDE HCL 10 MG CAPSULE PO PRN
[2020-06-20] MEDS ORDERED: METHADONE HCL 10 MG TABLET ONE (04:50)
[2020-06-20] MEDS ORDERED: METHADONE HCL 40 MG DISPERSABLE TABLET ONE (04:51)
[2020-06-20] MEDS: chlordiazePOXIDE HCL 10 MG CAPSULE PO SCH ×4 (05:22→22:01)
[2020-06-20] MEDS: hydrOXYzine PAMOATE 25 MG CAPSULE (FP) PO SCH ×5 (05:22→22:02)
[2020-06-20] MEDS: METHADONE 160 MG, METHADONE 10 MG PO SCH (05:22)
[2020-06-20] MEDS: GABAPENTIN 300 MG CAPSULE PO SCH ×3 (05:22→22:01)
[2020-06-20] MEDS: NICOTINE POLACRILEX 4 MG GUM BUC PRN ×3 (05:23→17:49)
[2020-06-20] MEDS: ACETAMINOPHEN 325 MG TABLET (FP) PO PRN ×2 (05:26→13:21)
[2020-06-20] MEDS: LIDOCAINE VISCOUS 2% ORAL/TOP 20 ML UNIT-DOSE CUP MM PRN (05:28)
[2020-06-20] MEDS: cloNIDine HCL 0.1 MG TABLET PO SCH ×2 (10:08→22:02)
[2020-06-20] MEDS: FAMOTIDINE 20 MG TABLET PO SCH ×2 (10:08→22:02)
[2020-06-20] MEDS: METHOCARBAMOL 500 MG TABLET PO PRN ×2 (10:08→17:49)
[2020-06-20] MEDS: NICOTINE 21 MG/24 HOURS TOPICAL PATCH TD SCH (10:09)
[2020-06-20] MEDS: PRENATAL VITAMINS W/ FOLIC ACID TABLET (FP) PO SCH (10:09)
[2020-06-20] MEDS: THIAMINE HCL 100 MG TABLET (FP) PO SCH (22:01)
[2020-06-20] MEDS: QUEtiapine FUMARATE 100 MG TABLET (FP) PO SCH (22:01)
[2020-06-20] MEDS: MELATONIN 5 MG TABLETS PO SCH (22:02)
[2020-06-21] MEDS ORDERED: METHADONE HCL 10 MG TABLET ONE (04:47)
[2020-06-21] MEDS ORDERED: METHADONE HCL 40 MG DISPERSABLE TABLET ONE (04:48)
[2020-06-21] MEDS: GABAPENTIN 300 MG CAPSULE PO SCH ×3 (05:52→22:11)
[2020-06-21] MEDS: METHADONE 160 MG, METHADONE 10 MG PO SCH (05:52)
[2020-06-21] MEDS: hydrOXYzine PAMOATE 25 MG CAPSULE (FP) PO SCH ×5 (05:53→22:11)
[2020-06-21] MEDS: NICOTINE POLACRILEX 4 MG GUM BUC PRN (05:53)
[2020-06-21] MEDS: chlordiazePOXIDE HCL 10 MG CAPSULE PO SCH ×2 (05:57→17:11)
[2020-06-21] MEDS: METHOCARBAMOL 500 MG TABLET PO PRN ×2 (06:17→17:12)
[2020-06-21] MEDS: ACETAMINOPHEN 325 MG TABLET (FP) PO PRN (06:18)
[2020-06-21] MEDS: LIDOCAINE VISCOUS 2% ORAL/TOP 20 ML UNIT-DOSE CUP MM PRN (06:57)
[2020-06-21] MEDS: cloNIDine HCL 0.1 MG TABLET PO SCH ×2 (10:02→22:10)
[2020-06-21] MEDS: PRENATAL VITAMINS W/ FOLIC ACID TABLET (FP) PO SCH (10:02)
[2020-06-21] MEDS: FAMOTIDINE 20 MG TABLET PO SCH ×2 (10:02→22:11)
[2020-06-21] MEDS: NICOTINE 21 MG/24 HOURS TOPICAL PATCH TD SCH (10:03)
[2020-06-21] MEDS: QUEtiapine FUMARATE 100 MG TABLET (FP) PO SCH (22:10)
[2020-06-21] MEDS: MELATONIN 5 MG TABLETS PO SCH (22:10)
[2020-06-21] MEDS: THIAMINE HCL 100 MG TABLET (FP) PO SCH (22:11)
[2020-06-22] MEDS ORDERED: METHADONE HCL 10 MG TABLET ONE (04:32)
[2020-06-22] MEDS ORDERED: METHADONE HCL 40 MG DISPERSABLE TABLET ONE (04:32)
[2020-06-22] MEDS ORDERED: chlordiazePOXIDE HCL 10 MG CAPSULE PO ONE (05:00)
[2020-06-22] MEDS: GABAPENTIN 300 MG CAPSULE PO SCH (05:29)
[2020-06-22] MEDS: METHADONE 160 MG, METHADONE 10 MG PO SCH (05:29)
[2020-06-22] MEDS: hydrOXYzine PAMOATE 25 MG CAPSULE (FP) PO SCH ×2 (05:29→10:03)
[2020-06-22] MEDS: ACETAMINOPHEN 325 MG TABLET (FP) PO PRN (05:30)
[2020-06-22] MEDS: METHOCARBAMOL 500 MG TABLET PO PRN (05:31)
[2020-06-22 08:55] VITALS: BP 108/66; PULSE 73; TEMP 97.7
[2020-06-22] MEDS: FAMOTIDINE 20 MG TABLET PO SCH (10:02)
[2020-06-22] MEDS: PRENATAL VITAMINS W/ FOLIC ACID TABLET (FP) PO SCH (10:02)
[2020-06-22] MEDS: cloNIDine HCL 0.1 MG TABLET PO SCH (10:02)
[2020-06-22] MEDS: NICOTINE 21 MG/24 HOURS TOPICAL PATCH TD SCH (10:03)
[2020-06-22] MEDS: NICOTINE POLACRILEX 4 MG GUM BUC PRN (10:04)
== END 2020-06-22 11:16 | disposition other institution (70) | DRG 773 ==
LOC: YASAS 10:20 → Y3N 11:40
PROVIDERS: ADMIT Allergy & Immunology; ATTEND Allergy & Immunology
PROC: HZ2ZZZZ Detoxification Services for Substance Abuse Treatment (ICD-10-PCS; principal; 2020-06-17)
DX: F10.230 Alcohol dependence with withdrawal, uncomplicated (principal); F11.20 Opioid dependence, uncomplicated; F10.280 Alcohol dependence with alcohol-induced anxiety disorder; F10.282 Alcohol dependence with alcohol-induced sleep disorder; F17.210 Nicotine dependence, cigarettes, uncomplicated; F90.9 Attention-deficit hyperactivity disorder, unspecified type; F19.24 Other psychoactive substance dependence with psychoactive substance-induced mood disorder; F41.1 Generalized anxiety disorder; J45.909 Unspecified asthma, uncomplicated; G47.00 Insomnia, unspecified; E66.01 Morbid (severe) obesity due to excess calories; Z68.41 Body mass index [BMI] 40.0-44.9, adult; Z56.0 Unemployment, unspecified
CPT/HCPCS: 36415; 80053; 85027; 86780; C9803; J0735; Q0162; U0003

== ENCOUNTER 2020-06-22 11:21 | Inpatient (IN) | payer OTHER ==
[2020-06-22] MEDS ORDERED: MAGNESIUM CITRATE 300 ML BOTTLE PO PRN (13:19)
[2020-06-22] MEDS ORDERED: P-EPHED 60MG/TRIPROLIDI 2.5MG TABLET PO PRN (13:19)
[2020-06-22] MEDS ORDERED: LOPERAMIDE HCL 2 MG CAPSULE PO PRN (13:19)
[2020-06-22] MEDS ORDERED: MAG HYDROX/AL HYDROX/SIMETH 30 ML UNIT-DOSE CUP PO PRN (13:19)
[2020-06-22] MEDS ORDERED: MAGNESIUM HYDROX 2400MG/30ML ORAL SUSPENSION 30 ML CUP PO PRN (13:19)
[2020-06-22] MEDS ORDERED: MENTHOL/PHENOL 1 EACH UD MM PRN (13:19)
[2020-06-22] MEDS ORDERED: guaiFENesin 200 MG/10 ML 10 ML UNIT-DOSE CUPS PO PRN (13:19)
[2020-06-22] MEDS ORDERED: ACETAMINOPHEN 325 MG TABLET (FP) PO PRN (13:19)
[2020-06-22] MEDS ORDERED: ALBUTEROL SO4 HFA INHALER IH PRN ×2 (13:21→13:38)
[2020-06-22] MEDS ORDERED: COLLOIDAL OATMEAL 1 BAR EACH TP PRN (13:28)
[2020-06-22] MEDS: THIAMINE HCL 100 MG TABLET (FP) PO SCH (21:29)
[2020-06-22] MEDS: MELATONIN 5 MG TABLETS PO SCH (21:29)
[2020-06-22] MEDS: QUEtiapine FUMARATE 100 MG TABLET (FP) PO SCH (21:30)
[2020-06-22] MEDS: GABAPENTIN 300 MG CAPSULE PO SCH (21:30)
[2020-06-22] MEDS: cloNIDine HCL 0.1 MG TABLET PO PRN (21:30)
[2020-06-23] MEDS ORDERED: METHADONE HCL 10 MG TABLET PO SCH (06:00)
[2020-06-23] MEDS ORDERED: METHADONE HCL 10 MG TABLET ONE (06:03)
[2020-06-23] MEDS ORDERED: METHADONE HCL 40 MG DISPERSABLE TABLET ONE (06:03)
[2020-06-23] MEDS: METHADONE 160 MG, METHADONE 10 MG PO SCH (06:06)
[2020-06-23] MEDS: GABAPENTIN 300 MG CAPSULE PO SCH ×3 (06:07→21:22)
[2020-06-23] MEDS: NICOTINE 21 MG/24 HOURS TOPICAL PATCH TD SCH (09:36)
[2020-06-23] MEDS: PRENATAL VITAMINS W/ FOLIC ACID TABLET (FP) PO SCH (09:36)
[2020-06-23] MEDS: cloNIDine HCL 0.1 MG TABLET PO PRN ×2 (09:36→18:23)
[2020-06-23] MEDS: METHOCARBAMOL 500 MG TABLET PO PRN ×2 (14:03→22:12)
[2020-06-23] MEDS: NICOTINE POLACRILEX 2 MG GUM BUC PRN (18:23)
[2020-06-23] MEDS: MELATONIN 5 MG TABLETS PO SCH (21:22)
[2020-06-23] MEDS: THIAMINE HCL 100 MG TABLET (FP) PO SCH (21:22)
[2020-06-23] MEDS: QUEtiapine FUMARATE 100 MG TABLET (FP) PO SCH (21:22)
[2020-06-23] MEDS: hydrOXYzine PAMOATE 25 MG CAPSULE (FP) PO PRN (21:23)
[2020-06-24] MEDS ORDERED: METHADONE HCL 10 MG TABLET ONE (04:57)
[2020-06-24] MEDS ORDERED: METHADONE HCL 40 MG DISPERSABLE TABLET ONE (04:57)
[2020-06-24] MEDS: GABAPENTIN 300 MG CAPSULE PO SCH ×3 (05:54→21:28)
[2020-06-24] MEDS: cloNIDine HCL 0.1 MG TABLET PO PRN ×2 (05:54→16:36)
[2020-06-24] MEDS: METHADONE 160 MG, METHADONE 10 MG PO SCH (05:54)
[2020-06-24] MEDS: NICOTINE 21 MG/24 HOURS TOPICAL PATCH TD SCH (10:10)
[2020-06-24] MEDS: PRENATAL VITAMINS W/ FOLIC ACID TABLET (FP) PO SCH (10:10)
[2020-06-24] MEDS: METHOCARBAMOL 500 MG TABLET PO PRN ×2 (10:12→16:38)
[2020-06-24] MEDS: hydrOXYzine PAMOATE 25 MG CAPSULE (FP) PO PRN ×2 (10:14→16:36)
[2020-06-24] MEDS: NICOTINE POLACRILEX 2 MG GUM BUC PRN (16:38)
[2020-06-24] MEDS: MELATONIN 5 MG TABLETS PO SCH (21:27)
[2020-06-24] MEDS: THIAMINE HCL 100 MG TABLET (FP) PO SCH (21:27)
[2020-06-24] MEDS: QUEtiapine FUMARATE 100 MG TABLET (FP) PO SCH (21:28)
[2020-06-25] MEDS ORDERED: METHADONE HCL 40 MG DISPERSABLE TABLET ONE (05:02)
[2020-06-25] MEDS ORDERED: METHADONE HCL 10 MG TABLET ONE (05:03)
[2020-06-25] MEDS: GABAPENTIN 300 MG CAPSULE PO SCH ×2 (05:58→21:17)
[2020-06-25] MEDS: NICOTINE POLACRILEX 2 MG GUM BUC PRN ×2 (05:58→13:51)
[2020-06-25] MEDS: hydrOXYzine PAMOATE 25 MG CAPSULE (FP) PO PRN ×4 (05:58→21:18)
[2020-06-25] MEDS: METHADONE 160 MG, METHADONE 10 MG PO SCH (05:58)
[2020-06-25] MEDS: PRENATAL VITAMINS W/ FOLIC ACID TABLET (FP) PO SCH (10:27)
[2020-06-25] MEDS: NICOTINE 21 MG/24 HOURS TOPICAL PATCH TD SCH (10:27)
[2020-06-25] MEDS: PANTOPRAZOLE 40 MG TABLET PO SCH (10:28)
[2020-06-25] MEDS ORDERED: GABAPENTIN 400 MG CAPSULE PO SCH (14:00)
[2020-06-25] MEDS: METHOCARBAMOL 500 MG TABLET PO PRN (18:00)
[2020-06-25] MEDS: THIAMINE HCL 100 MG TABLET (FP) PO SCH (21:16)
[2020-06-25] MEDS: MELATONIN 5 MG TABLETS PO SCH (21:16)
[2020-06-25] MEDS: cloNIDine HCL 0.1 MG TABLET PO PRN (21:17)
[2020-06-25] MEDS: QUEtiapine FUMARATE 100 MG TABLET (FP) PO SCH (21:17)
[2020-06-26] MEDS ORDERED: METHADONE HCL 10 MG TABLET ONE (05:08)
[2020-06-26] MEDS ORDERED: METHADONE HCL 40 MG DISPERSABLE TABLET ONE (05:08)
[2020-06-26] MEDS: METHADONE 160 MG, METHADONE 10 MG PO SCH (06:21)
[2020-06-26] MEDS: GABAPENTIN 300 MG CAPSULE PO SCH ×3 (06:21→21:14)
[2020-06-26] MEDS: NICOTINE POLACRILEX 2 MG GUM BUC PRN ×2 (06:22→21:16)
[2020-06-26] MEDS: PANTOPRAZOLE 40 MG TABLET PO SCH (10:11)
[2020-06-26] MEDS: PRENATAL VITAMINS W/ FOLIC ACID TABLET (FP) PO SCH (10:11)
[2020-06-26] MEDS: NICOTINE 21 MG/24 HOURS TOPICAL PATCH TD SCH (10:11)
[2020-06-26] MEDS: hydrOXYzine PAMOATE 25 MG CAPSULE (FP) PO PRN ×2 (10:17→17:22)
[2020-06-26] MEDS: METHOCARBAMOL 500 MG TABLET PO PRN ×2 (10:18→17:22)
[2020-06-26] MEDS: cloNIDine HCL 0.1 MG TABLET PO PRN ×2 (10:18→21:15)
[2020-06-26] MEDS: IBUPROFEN 400 MG TABLET (FP) PO PRN ×2 (13:55→21:15)
[2020-06-26] MEDS: QUEtiapine FUMARATE 100 MG TABLET (FP) PO SCH (21:14)
[2020-06-26] MEDS: MELATONIN 5 MG TABLETS PO SCH (21:14)
[2020-06-26] MEDS: THIAMINE HCL 100 MG TABLET (FP) PO SCH (21:14)
[2020-06-27] MEDS ORDERED: METHADONE HCL 10 MG TABLET ONE (04:56)
[2020-06-27] MEDS ORDERED: METHADONE HCL 40 MG DISPERSABLE TABLET ONE (04:56)
[2020-06-27] MEDS: GABAPENTIN 300 MG CAPSULE PO SCH ×3 (06:09→21:23)
[2020-06-27] MEDS: METHADONE 160 MG, METHADONE 10 MG PO SCH (06:09)
[2020-06-27] MEDS: NICOTINE 21 MG/24 HOURS TOPICAL PATCH TD SCH (09:47)
[2020-06-27] MEDS: hydrOXYzine PAMOATE 25 MG CAPSULE (FP) PO PRN (09:48)
[2020-06-27] MEDS: PRENATAL VITAMINS W/ FOLIC ACID TABLET (FP) PO SCH (09:48)
[2020-06-27] MEDS: PANTOPRAZOLE 40 MG TABLET PO SCH (09:48)
[2020-06-27] MEDS: cloNIDine HCL 0.1 MG TABLET PO PRN ×2 (09:48→21:23)
[2020-06-27] MEDS: NICOTINE POLACRILEX 2 MG GUM BUC PRN ×3 (09:50→18:01)
[2020-06-27] MEDS: METHOCARBAMOL 500 MG TABLET PO PRN ×2 (09:50→18:00)
[2020-06-27] MEDS: hydrOXYzine PAMOATE 50 MG CAPSULE (FP) PO PRN ×2 (18:00→21:24)
[2020-06-27] MEDS: MELATONIN 5 MG TABLETS PO SCH (21:23)
[2020-06-27] MEDS: QUEtiapine FUMARATE 100 MG TABLET (FP) PO SCH (21:23)
[2020-06-27] MEDS: THIAMINE HCL 100 MG TABLET (FP) PO SCH (21:23)
[2020-06-28] MEDS ORDERED: METHADONE HCL 40 MG DISPERSABLE TABLET ONE (05:32)
[2020-06-28] MEDS ORDERED: METHADONE HCL 10 MG TABLET ONE (05:33)
[2020-06-28] MEDS: GABAPENTIN 300 MG CAPSULE PO SCH ×3 (06:01→21:12)
[2020-06-28] MEDS: METHADONE 160 MG, METHADONE 10 MG PO SCH (06:01)
[2020-06-28] MEDS: hydrOXYzine PAMOATE 50 MG CAPSULE (FP) PO PRN ×3 (06:01→17:54)
[2020-06-28] MEDS: PANTOPRAZOLE 40 MG TABLET PO SCH (10:01)
[2020-06-28] MEDS: PRENATAL VITAMINS W/ FOLIC ACID TABLET (FP) PO SCH (10:01)
[2020-06-28] MEDS: cloNIDine HCL 0.1 MG TABLET PO PRN ×2 (10:01→21:12)
[2020-06-28] MEDS: NICOTINE 21 MG/24 HOURS TOPICAL PATCH TD SCH (10:02)
[2020-06-28] MEDS: METHOCARBAMOL 500 MG TABLET PO PRN ×2 (10:02→17:54)
[2020-06-28] MEDS: NICOTINE POLACRILEX 2 MG GUM BUC PRN (10:03)
[2020-06-28] MEDS: QUEtiapine FUMARATE 100 MG TABLET (FP) PO SCH (21:12)
[2020-06-28] MEDS: THIAMINE HCL 100 MG TABLET (FP) PO SCH (21:12)
[2020-06-28] MEDS: MELATONIN 5 MG TABLETS PO SCH (21:12)
[2020-06-29] MEDS ORDERED: METHADONE HCL 40 MG DISPERSABLE TABLET ONE (05:38)
[2020-06-29] MEDS ORDERED: METHADONE HCL 10 MG TABLET ONE (05:38)
[2020-06-29] MEDS: GABAPENTIN 300 MG CAPSULE PO SCH ×3 (06:08→21:33)
[2020-06-29] MEDS: METHADONE 160 MG, METHADONE 10 MG PO SCH (06:08)
[2020-06-29] MEDS: hydrOXYzine PAMOATE 50 MG CAPSULE (FP) PO PRN ×2 (10:27→21:35)
[2020-06-29] MEDS: PANTOPRAZOLE 40 MG TABLET PO SCH (10:27)
[2020-06-29] MEDS: PRENATAL VITAMINS W/ FOLIC ACID TABLET (FP) PO SCH (10:27)
[2020-06-29] MEDS: cloNIDine HCL 0.1 MG TABLET PO PRN ×2 (10:27→21:35)
[2020-06-29] MEDS: NICOTINE POLACRILEX 2 MG GUM BUC PRN (10:27)
[2020-06-29] MEDS: NICOTINE 21 MG/24 HOURS TOPICAL PATCH TD SCH (10:27)
[2020-06-29] MEDS: THIAMINE HCL 100 MG TABLET (FP) PO SCH (21:33)
[2020-06-29] MEDS: QUEtiapine FUMARATE 100 MG TABLET (FP) PO SCH (21:33)
[2020-06-29] MEDS: MELATONIN 5 MG TABLETS PO SCH (21:34)
[2020-06-30] MEDS ORDERED: METHADONE HCL 40 MG DISPERSABLE TABLET ONE (05:36)
[2020-06-30] MEDS ORDERED: METHADONE HCL 10 MG TABLET ONE (05:36)
[2020-06-30] MEDS ORDERED: METHADONE HCL 10 MG TABLET PO SCH (06:00)
[2020-06-30] MEDS: hydrOXYzine PAMOATE 50 MG CAPSULE (FP) PO PRN ×3 (06:27→21:16)
[2020-06-30] MEDS: GABAPENTIN 300 MG CAPSULE PO SCH ×3 (06:27→21:17)
[2020-06-30] MEDS: METHADONE 160 MG, METHADONE 10 MG PO SCH ×2 (06:27→07:09)
[2020-06-30] MEDS: NICOTINE POLACRILEX 2 MG GUM BUC PRN ×2 (06:27→10:05)
[2020-06-30] MEDS: NICOTINE 21 MG/24 HOURS TOPICAL PATCH TD SCH (10:05)
[2020-06-30] MEDS: PRENATAL VITAMINS W/ FOLIC ACID TABLET (FP) PO SCH (10:05)
[2020-06-30] MEDS: PANTOPRAZOLE 40 MG TABLET PO SCH (10:05)
[2020-06-30] MEDS: cloNIDine HCL 0.1 MG TABLET PO PRN ×2 (10:05→21:15)
[2020-06-30] MEDS: METHOCARBAMOL 500 MG TABLET PO PRN (21:17)
[2020-06-30] MEDS: MELATONIN 5 MG TABLETS PO SCH (21:17)
[2020-06-30] MEDS: QUEtiapine FUMARATE 100 MG TABLET (FP) PO SCH (21:17)
[2020-06-30] MEDS: THIAMINE HCL 100 MG TABLET (FP) PO SCH (21:17)
[2020-07-01] MEDS ORDERED: METHADONE HCL 10 MG TABLET ONE (03:10)
[2020-07-01] MEDS ORDERED: METHADONE HCL 40 MG DISPERSABLE TABLET ONE (03:10)
[2020-07-01] MEDS: GABAPENTIN 300 MG CAPSULE PO SCH ×3 (06:03→21:13)
[2020-07-01] MEDS: METHADONE 160 MG, METHADONE 10 MG PO SCH ×2 (06:03→06:38)
[2020-07-01] MEDS: hydrOXYzine PAMOATE 50 MG CAPSULE (FP) PO PRN ×3 (06:03→21:13)
[2020-07-01] MEDS: NICOTINE POLACRILEX 2 MG GUM BUC PRN ×3 (06:04→14:55)
[2020-07-01] MEDS: cloNIDine HCL 0.1 MG TABLET PO PRN ×2 (09:30→21:13)
[2020-07-01] MEDS: PRENATAL VITAMINS W/ FOLIC ACID TABLET (FP) PO SCH (09:30)
[2020-07-01] MEDS: METHOCARBAMOL 500 MG TABLET PO PRN ×2 (09:30→21:13)
[2020-07-01] MEDS: PANTOPRAZOLE 40 MG TABLET PO SCH (09:30)
[2020-07-01] MEDS: NICOTINE 21 MG/24 HOURS TOPICAL PATCH TD SCH (09:30)
[2020-07-01] MEDS: THIAMINE HCL 100 MG TABLET (FP) PO SCH (21:13)
[2020-07-01] MEDS: MELATONIN 5 MG TABLETS PO SCH (21:13)
[2020-07-01] MEDS: QUEtiapine FUMARATE 100 MG TABLET (FP) PO SCH (21:13)
[2020-07-02] MEDS ORDERED: METHADONE HCL 40 MG DISPERSABLE TABLET ONE (03:36)
[2020-07-02] MEDS ORDERED: METHADONE HCL 10 MG TABLET ONE (03:36)
[2020-07-02] MEDS: METHADONE 160 MG, METHADONE 10 MG PO SCH ×2 (06:13→06:15)
[2020-07-02] MEDS: GABAPENTIN 300 MG CAPSULE PO SCH ×3 (06:13→21:14)
[2020-07-02] MEDS: hydrOXYzine PAMOATE 50 MG CAPSULE (FP) PO PRN ×3 (06:13→17:32)
[2020-07-02] MEDS: PRENATAL VITAMINS W/ FOLIC ACID TABLET (FP) PO SCH (09:36)
[2020-07-02] MEDS: cloNIDine HCL 0.1 MG TABLET PO PRN ×2 (09:36→21:15)
[2020-07-02] MEDS: METHOCARBAMOL 500 MG TABLET PO PRN ×2 (09:37→17:33)
[2020-07-02] MEDS: NICOTINE 21 MG/24 HOURS TOPICAL PATCH TD SCH (09:37)
[2020-07-02] MEDS: NICOTINE POLACRILEX 2 MG GUM BUC PRN ×2 (09:37→14:05)
[2020-07-02] MEDS: PANTOPRAZOLE 40 MG TABLET PO SCH (09:37)
[2020-07-02] MEDS: THIAMINE HCL 100 MG TABLET (FP) PO SCH (21:14)
[2020-07-02] MEDS: MELATONIN 5 MG TABLETS PO SCH (21:14)
[2020-07-02] MEDS: QUEtiapine FUMARATE 100 MG TABLET (FP) PO SCH (21:14)
[2020-07-03] MEDS: hydrOXYzine PAMOATE 50 MG CAPSULE (FP) PO PRN ×4 (06:07→21:21)
[2020-07-03] MEDS: GABAPENTIN 300 MG CAPSULE PO SCH ×3 (06:07→21:21)
[2020-07-03] MEDS ORDERED: METHADONE HCL 10 MG TABLET ONE (06:08)
[2020-07-03] MEDS ORDERED: METHADONE HCL 40 MG DISPERSABLE TABLET ONE (06:08)
[2020-07-03] MEDS: METHOCARBAMOL 500 MG TABLET PO PRN ×2 (06:09→21:22)
[2020-07-03] MEDS: METHADONE 160 MG, METHADONE 10 MG PO SCH (06:10)
[2020-07-03] MEDS: NICOTINE 21 MG/24 HOURS TOPICAL PATCH TD SCH (09:46)
[2020-07-03] MEDS: cloNIDine HCL 0.1 MG TABLET PO PRN ×2 (09:46→21:21)
[2020-07-03] MEDS: PRENATAL VITAMINS W/ FOLIC ACID TABLET (FP) PO SCH (09:46)
[2020-07-03] MEDS: PANTOPRAZOLE 40 MG TABLET PO SCH (09:47)
[2020-07-03] MEDS: QUEtiapine FUMARATE 100 MG TABLET (FP) PO SCH (21:21)
[2020-07-03] MEDS: MELATONIN 5 MG TABLETS PO SCH (21:23)
[2020-07-03] MEDS: THIAMINE HCL 100 MG TABLET (FP) PO SCH (21:23)
[2020-07-04] MEDS ORDERED: METHADONE HCL 10 MG TABLET ONE (03:24)
[2020-07-04] MEDS ORDERED: METHADONE HCL 40 MG DISPERSABLE TABLET ONE (03:24)
[2020-07-04] MEDS: METHADONE 160 MG, METHADONE 10 MG PO SCH (06:02)
[2020-07-04] MEDS: hydrOXYzine PAMOATE 50 MG CAPSULE (FP) PO PRN ×4 (06:02→21:12)
[2020-07-04] MEDS: GABAPENTIN 300 MG CAPSULE PO SCH ×3 (06:02→21:11)
[2020-07-04] MEDS: NICOTINE 21 MG/24 HOURS TOPICAL PATCH TD SCH (09:50)
[2020-07-04] MEDS: PRENATAL VITAMINS W/ FOLIC ACID TABLET (FP) PO SCH (09:51)
[2020-07-04] MEDS: cloNIDine HCL 0.1 MG TABLET PO PRN ×2 (09:51→21:11)
[2020-07-04] MEDS: PANTOPRAZOLE 40 MG TABLET PO SCH (09:51)
[2020-07-04] MEDS: METHOCARBAMOL 500 MG TABLET PO PRN ×2 (09:52→21:12)
[2020-07-04] MEDS: NICOTINE POLACRILEX 2 MG GUM BUC PRN (09:54)
[2020-07-04] MEDS: MELATONIN 5 MG TABLETS PO SCH (21:10)
[2020-07-04] MEDS: QUEtiapine FUMARATE 100 MG TABLET (FP) PO SCH (21:11)
[2020-07-04] MEDS: THIAMINE HCL 100 MG TABLET (FP) PO SCH (21:11)
[2020-07-05] MEDS ORDERED: METHADONE HCL 10 MG TABLET ONE (04:12)
[2020-07-05] MEDS ORDERED: METHADONE HCL 40 MG DISPERSABLE TABLET ONE (04:12)
[2020-07-05] MEDS: GABAPENTIN 300 MG CAPSULE PO SCH ×3 (06:12→21:52)
[2020-07-05] MEDS: METHADONE 160 MG, METHADONE 10 MG PO SCH (06:12)
[2020-07-05] MEDS: hydrOXYzine PAMOATE 50 MG CAPSULE (FP) PO PRN ×3 (06:14→21:52)
[2020-07-05] MEDS: NICOTINE POLACRILEX 2 MG GUM BUC PRN ×2 (06:14→09:38)
[2020-07-05] MEDS: METHOCARBAMOL 500 MG TABLET PO PRN ×2 (09:35→21:53)
[2020-07-05] MEDS: PRENATAL VITAMINS W/ FOLIC ACID TABLET (FP) PO SCH (09:35)
[2020-07-05] MEDS: cloNIDine HCL 0.1 MG TABLET PO PRN ×2 (09:35→21:52)
[2020-07-05] MEDS: NICOTINE 21 MG/24 HOURS TOPICAL PATCH TD SCH (09:35)
[2020-07-05] MEDS: PANTOPRAZOLE 40 MG TABLET PO SCH (09:35)
[2020-07-05] MEDS: QUEtiapine FUMARATE 100 MG TABLET (FP) PO SCH (21:52)
[2020-07-05] MEDS: THIAMINE HCL 100 MG TABLET (FP) PO SCH (21:52)
[2020-07-05] MEDS: MELATONIN 5 MG TABLETS PO SCH (21:52)
[2020-07-06] MEDS ORDERED: METHADONE HCL 10 MG TABLET ONE ×2 (05:49→06:34)
[2020-07-06] MEDS ORDERED: METHADONE HCL 40 MG DISPERSABLE TABLET ONE ×2 (05:49→06:35)
[2020-07-06] MEDS: GABAPENTIN 300 MG CAPSULE PO SCH ×3 (06:29→21:12)
[2020-07-06] MEDS: METHADONE 160 MG, METHADONE 10 MG PO SCH (06:29)
[2020-07-06] MEDS: METHOCARBAMOL 500 MG TABLET PO PRN ×2 (06:29→21:13)
[2020-07-06] MEDS: hydrOXYzine PAMOATE 50 MG CAPSULE (FP) PO PRN ×3 (06:30→21:14)
[2020-07-06] MEDS: NICOTINE POLACRILEX 2 MG GUM BUC PRN ×2 (06:35→09:44)
[2020-07-06] MEDS: NICOTINE 21 MG/24 HOURS TOPICAL PATCH TD SCH (09:34)
[2020-07-06] MEDS: PRENATAL VITAMINS W/ FOLIC ACID TABLET (FP) PO SCH (09:34)
[2020-07-06] MEDS: PANTOPRAZOLE 40 MG TABLET PO SCH (09:35)
[2020-07-06] MEDS: cloNIDine HCL 0.1 MG TABLET PO PRN ×2 (09:43→21:14)
[2020-07-06] MEDS: MELATONIN 5 MG TABLETS PO SCH (21:12)
[2020-07-06] MEDS: QUEtiapine FUMARATE 100 MG TABLET (FP) PO SCH (21:14)
[2020-07-06] MEDS: THIAMINE HCL 100 MG TABLET (FP) PO SCH (21:14)
[2020-07-07] MEDS ORDERED: METHADONE HCL 40 MG DISPERSABLE TABLET ONE (05:51)
[2020-07-07] MEDS ORDERED: METHADONE HCL 10 MG TABLET ONE (05:51)
[2020-07-07] MEDS: METHADONE 160 MG, METHADONE 10 MG PO SCH (06:18)
[2020-07-07] MEDS: GABAPENTIN 300 MG CAPSULE PO SCH ×3 (06:19→22:12)
[2020-07-07] MEDS: METHOCARBAMOL 500 MG TABLET PO PRN ×2 (06:19→22:12)
[2020-07-07] MEDS: hydrOXYzine PAMOATE 50 MG CAPSULE (FP) PO PRN ×3 (06:21→22:12)
[2020-07-07] MEDS: cloNIDine HCL 0.1 MG TABLET PO PRN ×2 (10:01→22:12)
[2020-07-07] MEDS: NICOTINE 21 MG/24 HOURS TOPICAL PATCH TD SCH (10:01)
[2020-07-07] MEDS: PRENATAL VITAMINS W/ FOLIC ACID TABLET (FP) PO SCH (10:01)
[2020-07-07] MEDS: PANTOPRAZOLE 40 MG TABLET PO SCH (10:01)
[2020-07-07] MEDS: NICOTINE POLACRILEX 2 MG GUM BUC PRN (10:03)
[2020-07-07] MEDS: MELATONIN 5 MG TABLETS PO SCH (22:11)
[2020-07-07] MEDS: QUEtiapine FUMARATE 100 MG TABLET (FP) PO SCH (22:12)
[2020-07-07] MEDS: THIAMINE HCL 100 MG TABLET (FP) PO SCH (22:12)
[2020-07-08] MEDS ORDERED: METHADONE HCL 10 MG TABLET ONE (05:49)
[2020-07-08] MEDS ORDERED: METHADONE HCL 40 MG DISPERSABLE TABLET ONE (05:50)
[2020-07-08] MEDS: METHADONE 160 MG, METHADONE 10 MG PO SCH (06:17)
[2020-07-08] MEDS: GABAPENTIN 300 MG CAPSULE PO SCH ×3 (06:18→21:07)
[2020-07-08] MEDS: hydrOXYzine PAMOATE 50 MG CAPSULE (FP) PO PRN ×3 (06:18→21:08)
[2020-07-08] MEDS: METHOCARBAMOL 500 MG TABLET PO PRN ×2 (06:19→21:08)
[2020-07-08] MEDS: PRENATAL VITAMINS W/ FOLIC ACID TABLET (FP) PO SCH (09:25)
[2020-07-08] MEDS: cloNIDine HCL 0.1 MG TABLET PO PRN ×2 (09:25→21:08)
[2020-07-08] MEDS: NICOTINE 21 MG/24 HOURS TOPICAL PATCH TD SCH (09:26)
[2020-07-08] MEDS: PANTOPRAZOLE 40 MG TABLET PO SCH (09:26)
[2020-07-08] MEDS: NICOTINE POLACRILEX 2 MG GUM BUC PRN (14:38)
[2020-07-08] MEDS: MELATONIN 5 MG TABLETS PO SCH (21:07)
[2020-07-08] MEDS: THIAMINE HCL 100 MG TABLET (FP) PO SCH (21:08)
[2020-07-08] MEDS: QUEtiapine FUMARATE 100 MG TABLET (FP) PO SCH (21:08)
[2020-07-09] MEDS ORDERED: METHADONE HCL 10 MG TABLET ONE (03:45)
[2020-07-09] MEDS ORDERED: METHADONE HCL 40 MG DISPERSABLE TABLET ONE (03:46)
[2020-07-09] MEDS: GABAPENTIN 300 MG CAPSULE PO SCH ×3 (06:10→21:53)
[2020-07-09] MEDS: METHADONE 160 MG, METHADONE 10 MG PO SCH (06:11)
[2020-07-09] MEDS: METHOCARBAMOL 500 MG TABLET PO PRN ×2 (06:11→21:53)
[2020-07-09] MEDS: hydrOXYzine PAMOATE 50 MG CAPSULE (FP) PO PRN ×3 (06:11→21:54)
[2020-07-09] MEDS: NICOTINE 21 MG/24 HOURS TOPICAL PATCH TD SCH (09:22)
[2020-07-09] MEDS: PRENATAL VITAMINS W/ FOLIC ACID TABLET (FP) PO SCH (09:24)
[2020-07-09] MEDS: cloNIDine HCL 0.1 MG TABLET PO PRN ×2 (09:24→21:53)
[2020-07-09] MEDS: PANTOPRAZOLE 40 MG TABLET PO SCH (09:24)
[2020-07-09] MEDS: NICOTINE POLACRILEX 2 MG GUM BUC PRN (09:25)
[2020-07-09] MEDS: QUEtiapine FUMARATE 100 MG TABLET (FP) PO SCH (21:53)
[2020-07-09] MEDS: THIAMINE HCL 100 MG TABLET (FP) PO SCH (21:53)
[2020-07-09] MEDS: MELATONIN 5 MG TABLETS PO SCH (21:53)
[2020-07-10] MEDS ORDERED: METHADONE HCL 10 MG TABLET ONE (04:13)
[2020-07-10] MEDS ORDERED: METHADONE HCL 40 MG DISPERSABLE TABLET ONE (04:14)
[2020-07-10] MEDS: hydrOXYzine PAMOATE 50 MG CAPSULE (FP) PO PRN ×3 (05:56→21:27)
[2020-07-10] MEDS: GABAPENTIN 300 MG CAPSULE PO SCH ×3 (05:56→21:27)
[2020-07-10] MEDS: METHADONE 160 MG, METHADONE 10 MG PO SCH (05:56)
[2020-07-10] MEDS: METHOCARBAMOL 500 MG TABLET PO PRN ×2 (05:57→21:27)
[2020-07-10] MEDS: NICOTINE 21 MG/24 HOURS TOPICAL PATCH TD SCH (09:24)
[2020-07-10] MEDS: PRENATAL VITAMINS W/ FOLIC ACID TABLET (FP) PO SCH (09:24)
[2020-07-10] MEDS: PANTOPRAZOLE 40 MG TABLET PO SCH (09:25)
[2020-07-10] MEDS: NICOTINE POLACRILEX 2 MG GUM BUC PRN (09:25)
[2020-07-10] MEDS: cloNIDine HCL 0.1 MG TABLET PO PRN ×2 (10:04→21:27)
[2020-07-10] MEDS: MELATONIN 5 MG TABLETS PO SCH (21:26)
[2020-07-10] MEDS: QUEtiapine FUMARATE 100 MG TABLET (FP) PO SCH (21:26)
[2020-07-10] MEDS: THIAMINE HCL 100 MG TABLET (FP) PO SCH (21:27)
[2020-07-11] MEDS ORDERED: METHADONE HCL 10 MG TABLET ONE (05:03)
[2020-07-11] MEDS ORDERED: METHADONE HCL 40 MG DISPERSABLE TABLET ONE (05:04)
[2020-07-11] MEDS: METHOCARBAMOL 500 MG TABLET PO PRN ×3 (06:09→21:17)
[2020-07-11] MEDS: METHADONE 160 MG, METHADONE 10 MG PO SCH (06:09)
[2020-07-11] MEDS: hydrOXYzine PAMOATE 50 MG CAPSULE (FP) PO PRN ×3 (06:09→13:12)
[2020-07-11] MEDS: GABAPENTIN 300 MG CAPSULE PO SCH ×3 (06:09→21:17)
[2020-07-11] MEDS: NICOTINE POLACRILEX 2 MG GUM BUC PRN ×3 (06:12→21:17)
[2020-07-11] MEDS: PRENATAL VITAMINS W/ FOLIC ACID TABLET (FP) PO SCH (10:05)
[2020-07-11] MEDS: PANTOPRAZOLE 40 MG TABLET PO SCH (10:05)
[2020-07-11] MEDS: NICOTINE 21 MG/24 HOURS TOPICAL PATCH TD SCH (10:05)
[2020-07-11] MEDS: cloNIDine HCL 0.1 MG TABLET PO PRN ×2 (10:07→21:17)
[2020-07-11] MEDS: THIAMINE HCL 100 MG TABLET (FP) PO SCH (21:16)
[2020-07-11] MEDS: QUEtiapine FUMARATE 100 MG TABLET (FP) PO SCH (21:17)
[2020-07-11] MEDS: MELATONIN 5 MG TABLETS PO SCH (21:17)
[2020-07-12] MEDS ORDERED: METHADONE HCL 40 MG DISPERSABLE TABLET ONE (03:43)
[2020-07-12] MEDS ORDERED: METHADONE HCL 10 MG TABLET ONE (03:43)
[2020-07-12] MEDS: GABAPENTIN 300 MG CAPSULE PO SCH ×3 (06:04→21:22)
[2020-07-12] MEDS: METHOCARBAMOL 500 MG TABLET PO PRN ×2 (06:04→21:23)
[2020-07-12] MEDS: hydrOXYzine PAMOATE 50 MG CAPSULE (FP) PO PRN ×4 (06:04→21:22)
[2020-07-12] MEDS: METHADONE 160 MG, METHADONE 10 MG PO SCH (06:04)
[2020-07-12] MEDS: NICOTINE POLACRILEX 2 MG GUM BUC PRN ×2 (06:09→09:57)
[2020-07-12] MEDS: cloNIDine HCL 0.1 MG TABLET PO PRN ×2 (09:57→21:22)
[2020-07-12] MEDS: PRENATAL VITAMINS W/ FOLIC ACID TABLET (FP) PO SCH (09:57)
[2020-07-12] MEDS: PANTOPRAZOLE 40 MG TABLET PO SCH (09:57)
[2020-07-12] MEDS: NICOTINE 21 MG/24 HOURS TOPICAL PATCH TD SCH (09:58)
[2020-07-12] MEDS: MELATONIN 5 MG TABLETS PO SCH (21:22)
[2020-07-12] MEDS: QUEtiapine FUMARATE 100 MG TABLET (FP) PO SCH (21:22)
[2020-07-12] MEDS: THIAMINE HCL 100 MG TABLET (FP) PO SCH (21:22)
[2020-07-13] MEDS ORDERED: METHADONE HCL 40 MG DISPERSABLE TABLET ONE (03:40)
[2020-07-13] MEDS ORDERED: METHADONE HCL 10 MG TABLET ONE (03:40)
[2020-07-13] MEDS: METHADONE 160 MG, METHADONE 10 MG PO SCH (05:57)
[2020-07-13] MEDS: hydrOXYzine PAMOATE 50 MG CAPSULE (FP) PO PRN ×3 (05:57→21:39)
[2020-07-13] MEDS: GABAPENTIN 300 MG CAPSULE PO SCH ×3 (06:00→21:37)
[2020-07-13] MEDS: METHOCARBAMOL 500 MG TABLET PO PRN ×2 (06:00→21:38)
[2020-07-13] MEDS: NICOTINE 21 MG/24 HOURS TOPICAL PATCH TD SCH (09:58)
[2020-07-13] MEDS: PANTOPRAZOLE 40 MG TABLET PO SCH (09:58)
[2020-07-13] MEDS: PRENATAL VITAMINS W/ FOLIC ACID TABLET (FP) PO SCH (09:58)
[2020-07-13] MEDS: cloNIDine HCL 0.1 MG TABLET PO PRN ×2 (09:58→21:39)
[2020-07-13] MEDS: NICOTINE POLACRILEX 2 MG GUM BUC PRN (09:59)
[2020-07-13] MEDS: QUEtiapine FUMARATE 100 MG TABLET (FP) PO SCH (21:37)
[2020-07-13] MEDS: THIAMINE HCL 100 MG TABLET (FP) PO SCH (21:37)
[2020-07-13] MEDS: MELATONIN 5 MG TABLETS PO SCH (21:37)
[2020-07-14] MEDS ORDERED: METHADONE HCL 40 MG DISPERSABLE TABLET ONE (03:28)
[2020-07-14] MEDS ORDERED: METHADONE HCL 10 MG TABLET ONE (03:28)
[2020-07-14] MEDS: METHADONE 160 MG, METHADONE 10 MG PO SCH (05:57)
[2020-07-14] MEDS: hydrOXYzine PAMOATE 50 MG CAPSULE (FP) PO PRN ×3 (05:57→22:03)
[2020-07-14] MEDS: METHOCARBAMOL 500 MG TABLET PO PRN ×2 (05:59→22:03)
[2020-07-14] MEDS: GABAPENTIN 300 MG CAPSULE PO SCH ×3 (05:59→22:04)
[2020-07-14] MEDS: cloNIDine HCL 0.1 MG TABLET PO PRN (09:44)
[2020-07-14] MEDS: PRENATAL VITAMINS W/ FOLIC ACID TABLET (FP) PO SCH (09:44)
[2020-07-14] MEDS: PANTOPRAZOLE 40 MG TABLET PO SCH (09:45)
[2020-07-14] MEDS: NICOTINE 21 MG/24 HOURS TOPICAL PATCH TD SCH (09:45)
[2020-07-14] MEDS: NICOTINE POLACRILEX 2 MG GUM BUC PRN ×2 (09:45→13:16)
[2020-07-14] MEDS: QUEtiapine FUMARATE 100 MG TABLET (FP) PO SCH (22:03)
[2020-07-14] MEDS: THIAMINE HCL 100 MG TABLET (FP) PO SCH (22:03)
[2020-07-14] MEDS: MELATONIN 5 MG TABLETS PO SCH (22:04)
[2020-07-15] MEDS ORDERED: METHADONE HCL 10 MG TABLET ONE (04:49)
[2020-07-15] MEDS ORDERED: METHADONE HCL 40 MG DISPERSABLE TABLET ONE (04:50)
[2020-07-15] MEDS: hydrOXYzine PAMOATE 50 MG CAPSULE (FP) PO PRN ×4 (06:12→21:21)
[2020-07-15] MEDS: METHOCARBAMOL 500 MG TABLET PO PRN ×2 (06:12→21:21)
[2020-07-15] MEDS: GABAPENTIN 300 MG CAPSULE PO SCH ×3 (06:12→21:20)
[2020-07-15] MEDS: NICOTINE POLACRILEX 2 MG GUM BUC PRN ×2 (06:13→21:23)
[2020-07-15] MEDS: METHADONE 160 MG, METHADONE 10 MG PO SCH (06:13)
[2020-07-15] MEDS: NICOTINE 21 MG/24 HOURS TOPICAL PATCH TD SCH (10:01)
[2020-07-15] MEDS: PRENATAL VITAMINS W/ FOLIC ACID TABLET (FP) PO SCH (10:01)
[2020-07-15] MEDS: cloNIDine HCL 0.1 MG TABLET PO PRN ×2 (10:01→21:21)
[2020-07-15] MEDS: PANTOPRAZOLE 40 MG TABLET PO SCH (10:01)
[2020-07-15] MEDS: QUEtiapine FUMARATE 100 MG TABLET (FP) PO SCH (21:21)
[2020-07-15] MEDS: MELATONIN 5 MG TABLETS PO SCH (21:21)
[2020-07-15] MEDS: THIAMINE HCL 100 MG TABLET (FP) PO SCH (21:21)
[2020-07-16] MEDS ORDERED: METHADONE HCL 40 MG DISPERSABLE TABLET ONE (06:00)
[2020-07-16] MEDS ORDERED: METHADONE HCL 10 MG TABLET ONE (06:00)
[2020-07-16] MEDS: METHADONE 160 MG, METHADONE 10 MG PO SCH (06:02)
[2020-07-16] MEDS: hydrOXYzine PAMOATE 50 MG CAPSULE (FP) PO PRN ×3 (06:02→21:31)
[2020-07-16] MEDS: METHOCARBAMOL 500 MG TABLET PO PRN ×2 (06:02→21:32)
[2020-07-16] MEDS: GABAPENTIN 300 MG CAPSULE PO SCH ×3 (06:03→21:31)
[2020-07-16] MEDS: NICOTINE 21 MG/24 HOURS TOPICAL PATCH TD SCH (09:44)
[2020-07-16] MEDS: cloNIDine HCL 0.1 MG TABLET PO PRN ×2 (09:44→21:31)
[2020-07-16] MEDS: PANTOPRAZOLE 40 MG TABLET PO SCH (09:44)
[2020-07-16] MEDS: PRENATAL VITAMINS W/ FOLIC ACID TABLET (FP) PO SCH (09:44)
[2020-07-16] MEDS: NICOTINE POLACRILEX 2 MG GUM BUC PRN (14:13)
[2020-07-16] MEDS: THIAMINE HCL 100 MG TABLET (FP) PO SCH (21:31)
[2020-07-16] MEDS: QUEtiapine FUMARATE 100 MG TABLET (FP) PO SCH (21:31)
[2020-07-16] MEDS: MELATONIN 5 MG TABLETS PO SCH (21:32)
[2020-07-17] MEDS ORDERED: METHADONE HCL 40 MG DISPERSABLE TABLET ONE (03:48)
[2020-07-17] MEDS ORDERED: METHADONE HCL 10 MG TABLET ONE (03:48)
[2020-07-17] MEDS: METHADONE 160 MG, METHADONE 10 MG PO SCH (06:00)
[2020-07-17] MEDS: hydrOXYzine PAMOATE 50 MG CAPSULE (FP) PO PRN ×4 (06:01→21:20)
[2020-07-17] MEDS: METHOCARBAMOL 500 MG TABLET PO PRN ×2 (06:01→21:20)
[2020-07-17] MEDS: GABAPENTIN 300 MG CAPSULE PO SCH ×3 (06:03→21:20)
[2020-07-17] MEDS: NICOTINE 21 MG/24 HOURS TOPICAL PATCH TD SCH (09:54)
[2020-07-17] MEDS: PRENATAL VITAMINS W/ FOLIC ACID TABLET (FP) PO SCH (09:54)
[2020-07-17] MEDS: PANTOPRAZOLE 40 MG TABLET PO SCH (09:54)
[2020-07-17] MEDS: cloNIDine HCL 0.1 MG TABLET PO PRN ×2 (09:54→21:20)
[2020-07-17] MEDS: QUEtiapine FUMARATE 100 MG TABLET (FP) PO SCH (21:20)
[2020-07-17] MEDS: THIAMINE HCL 100 MG TABLET (FP) PO SCH (21:20)
[2020-07-17] MEDS: MELATONIN 5 MG TABLETS PO SCH (21:21)
[2020-07-18] MEDS ORDERED: METHADONE HCL 40 MG DISPERSABLE TABLET ONE (03:38)
[2020-07-18] MEDS ORDERED: METHADONE HCL 10 MG TABLET ONE (03:38)
[2020-07-18] MEDS: hydrOXYzine PAMOATE 50 MG CAPSULE (FP) PO PRN (06:00)
[2020-07-18] MEDS: cloNIDine HCL 0.1 MG TABLET PO PRN (06:00)
[2020-07-18] MEDS: METHOCARBAMOL 500 MG TABLET PO PRN (06:01)
[2020-07-18] MEDS: NICOTINE POLACRILEX 2 MG GUM BUC PRN (06:01)
[2020-07-18] MEDS: GABAPENTIN 300 MG CAPSULE PO SCH (06:01)
[2020-07-18] MEDS: METHADONE 160 MG, METHADONE 10 MG PO SCH (06:05)
[2020-07-18 07:00] VITALS: BP 130/77; PULSE 80; TEMP 97.3
[2020-07-18] MEDS: PANTOPRAZOLE 40 MG TABLET PO SCH (09:24)
[2020-07-18] MEDS: PRENATAL VITAMINS W/ FOLIC ACID TABLET (FP) PO SCH (09:24)
[2020-07-18] MEDS: NICOTINE 21 MG/24 HOURS TOPICAL PATCH TD SCH (09:24)
== END 2020-07-18 09:30 | disposition home or self-care (01) | DRG 772 ==
LOC: YASAS 11:21 → Y3W 11:22 → Y5N 07-04 14:59
PROVIDERS: ADMIT Allergy & Immunology; ATTEND Allergy & Immunology
PROC: HZ42ZZZ Group Counseling for Substance Abuse Treatment, Cognitive-Behavioral (ICD-10-PCS; principal; 2020-06-22)
DX: F10.20 Alcohol dependence, uncomplicated (principal); F11.20 Opioid dependence, uncomplicated; F17.210 Nicotine dependence, cigarettes, uncomplicated; F10.280 Alcohol dependence with alcohol-induced anxiety disorder; F10.282 Alcohol dependence with alcohol-induced sleep disorder; F39 Unspecified mood [affective] disorder; F41.1 Generalized anxiety disorder; F90.9 Attention-deficit hyperactivity disorder, unspecified type; J45.909 Unspecified asthma, uncomplicated; E29.1 Testicular hypofunction; E66.01 Morbid (severe) obesity due to excess calories; Z68.41 Body mass index [BMI] 40.0-44.9, adult
CPT/HCPCS: J0735

== ENCOUNTER 2020-11-26 15:24 | Inpatient (IN) | payer OTHER ==
[2020-11-26 15:53] VITALS: BMI 44.4
[2020-11-26] MEDS ORDERED: MAG HYDROX/AL HYDROX/SIMETH 30 ML UNIT-DOSE CUP PO PRN (18:07)
[2020-11-26] MEDS ORDERED: ACETAMINOPHEN 325 MG TABLET (FP) PO PRN ×2 (18:07)
[2020-11-26] MEDS ORDERED: MAGNESIUM CITRATE 300 ML BOTTLE PO PRN (18:07)
[2020-11-26] MEDS ORDERED: NICOTINE POLACRILEX 2 MG GUM BUC PRN (18:07)
[2020-11-26] MEDS ORDERED: BISMUTH SUBSALICYLATE 524 MG/30 ML PO PRN (18:07)
[2020-11-26] MEDS ORDERED: ONDANSETRON *ODT* 4 MG TABLET SL PRN (18:07)
[2020-11-26] MEDS ORDERED: MENTHOL/PHENOL 1 EACH UD MM PRN (18:07)
[2020-11-26] MEDS: chlordiazePOXIDE HCL 25 MG CAPSULE PO PRN (19:59)
[2020-11-26] MEDS: IBUPROFEN 400 MG TABLET (FP) PO PRN (20:01)
[2020-11-26] MEDS: THIAMINE HCL 100 MG TABLET (FP) PO SCH (22:04)
[2020-11-26] MEDS: chlordiazePOXIDE HCL 25 MG CAPSULE PO SCH (22:04)
[2020-11-26] MEDS: MELATONIN 5 MG TABLETS PO SCH (22:05)
[2020-11-27] MEDS: chlordiazePOXIDE HCL 25 MG CAPSULE PO PRN ×3 (02:59→13:27)
[2020-11-27] MEDS: chlordiazePOXIDE HCL 25 MG CAPSULE PO SCH ×4 (05:23→22:05)
[2020-11-27] MEDS ORDERED: METHADONE HCL 10 MG TABLET PO ONE (09:13)
[2020-11-27] MEDS ORDERED: METHADONE 160 MG, METHADONE 20 MG PO ONE (09:45)
[2020-11-27] MEDS ORDERED: NICOTINE 7 MG/24 HOURS TOPICAL PATCH TD SCH (10:00)
[2020-11-27] MEDS: PRENATAL VITAMINS W/ FOLIC ACID TABLET (FP) PO SCH (10:09)
[2020-11-27] MEDS ORDERED: METHADONE HCL 10 MG TABLET ONE (10:10)
[2020-11-27] MEDS ORDERED: METHADONE HCL 40 MG DISPERSABLE TABLET ONE (10:11)
[2020-11-27] MEDS: ATOMOXETINE HCL 40 MG CAPSULE PO SCH (10:12)
[2020-11-27 10:13] LABS: HEMATOCRIT 39.3 % (35.4-49); HEMOGLOBIN 13.6 GM/dL (11.7-16.9); MCH 30.7 pg (25.7-33.7); MCHC 34.5 g/dl (32.0-35.9); MEAN CELL VOLUME 88.9 fl (80-96); MEAN PLT VOLUME 8.1 fl (7.5-11.1); PLATELET COUNT 200 K/MM3 (134-434); RBC 4.43 M/mm3 (4.00-5.60); RDW 14.1 % (11.9-15.9); WHITE BLOOD COUNT 4.3 K/mm3 (4.0-10.0)
[2020-11-27 10:24] LABS: ALBUMIN 3.8 g/dl (3.4-5.0); BLOOD UREA NITROGEN 15.3 mg/dL (7-18); CALCIUM 8.9 mg/dL (8.5-10.1)
[2020-11-27 10:28] LABS: BILIRUBIN,TOTAL 0.5 mg/dL (0.2-1); CREATININE 1.3 mg/dL (0.55-1.3); TOT PROT 7.2 g/dl (6.4-8.2)
[2020-11-27] MEDS: NICOTINE 21 MG/24 HOURS TOPICAL PATCH TD SCH (12:34)
[2020-11-27] MEDS: GABAPENTIN 300 MG CAPSULE PO SCH ×2 (13:28→22:05)
[2020-11-27] MEDS: hydrOXYzine PAMOATE 25 MG CAPSULE (FP) PO PRN ×2 (17:22→22:07)
[2020-11-27] MEDS: THIAMINE HCL 100 MG TABLET (FP) PO SCH (22:05)
[2020-11-27] MEDS: QUEtiapine FUMARATE 100 MG TABLET (FP) PO SCH (22:05)
[2020-11-27] MEDS: IBUPROFEN 400 MG TABLET (FP) PO PRN (22:08)
[2020-11-27] MEDS: MELATONIN 5 MG TABLETS PO SCH (22:09)
[2020-11-27] MEDS: MAGNESIUM HYDROX 2400MG/30ML ORAL SUSPENSION 30 ML CUP PO PRN (22:29)
[2020-11-28] MEDS: chlordiazePOXIDE HCL 25 MG CAPSULE PO PRN ×3 (02:01→19:09)
[2020-11-28] MEDS ORDERED: METHADONE HCL 10 MG TABLET ONE (04:58)
[2020-11-28] MEDS ORDERED: METHADONE HCL 40 MG DISPERSABLE TABLET ONE (04:59)
[2020-11-28] MEDS: METHADONE 160 MG, METHADONE 20 MG PO SCH (05:24)
[2020-11-28] MEDS: GABAPENTIN 300 MG CAPSULE PO SCH ×3 (05:24→22:03)
[2020-11-28] MEDS: chlordiazePOXIDE HCL 25 MG CAPSULE PO SCH ×4 (05:24→22:03)
[2020-11-28] MEDS ORDERED: METHADONE HCL 10 MG TABLET PO SCH (06:00)
[2020-11-28] MEDS: PRENATAL VITAMINS W/ FOLIC ACID TABLET (FP) PO SCH (10:10)
[2020-11-28] MEDS: NICOTINE 21 MG/24 HOURS TOPICAL PATCH TD SCH (10:11)
[2020-11-28] MEDS: METHOCARBAMOL 500 MG TABLET PO PRN (10:13)
[2020-11-28] MEDS: NICOTINE POLACRILEX 4 MG GUM BUC PRN (10:14)
[2020-11-28] MEDS: ATOMOXETINE HCL 40 MG CAPSULE PO SCH (12:28)
[2020-11-28] MEDS: hydrOXYzine PAMOATE 25 MG CAPSULE (FP) PO PRN (19:08)
[2020-11-28] MEDS: THIAMINE HCL 100 MG TABLET (FP) PO SCH (22:03)
[2020-11-28] MEDS: QUEtiapine FUMARATE 100 MG TABLET (FP) PO SCH (22:03)
[2020-11-28] MEDS: MELATONIN 5 MG TABLETS PO SCH (22:04)
[2020-11-28] MEDS: MAGNESIUM HYDROX 2400MG/30ML ORAL SUSPENSION 30 ML CUP PO PRN (22:07)
[2020-11-29] MEDS ORDERED: METHADONE HCL 10 MG TABLET ONE (04:03)
[2020-11-29] MEDS ORDERED: METHADONE HCL 40 MG DISPERSABLE TABLET ONE (04:03)
[2020-11-29] MEDS: GABAPENTIN 300 MG CAPSULE PO SCH ×3 (05:39→22:25)
[2020-11-29] MEDS: METHADONE 160 MG, METHADONE 20 MG PO SCH (05:40)
[2020-11-29] MEDS: chlordiazePOXIDE HCL 10 MG CAPSULE PO SCH ×4 (05:40→22:24)
[2020-11-29] MEDS: hydrOXYzine PAMOATE 25 MG CAPSULE (FP) PO PRN ×3 (05:41→18:01)
[2020-11-29] MEDS: ATOMOXETINE HCL 40 MG CAPSULE PO SCH (10:36)
[2020-11-29] MEDS: PRENATAL VITAMINS W/ FOLIC ACID TABLET (FP) PO SCH (10:36)
[2020-11-29] MEDS: METHOCARBAMOL 500 MG TABLET PO PRN (10:38)
[2020-11-29] MEDS: IBUPROFEN 400 MG TABLET (FP) PO PRN (10:38)
[2020-11-29] MEDS: NICOTINE 21 MG/24 HOURS TOPICAL PATCH TD SCH (10:41)
[2020-11-29] MEDS: chlordiazePOXIDE HCL 10 MG CAPSULE PO PRN ×2 (12:15→19:55)
[2020-11-29] MEDS: THIAMINE HCL 100 MG TABLET (FP) PO SCH (22:24)
[2020-11-29] MEDS: QUEtiapine FUMARATE 100 MG TABLET (FP) PO SCH (22:24)
[2020-11-29] MEDS: MELATONIN 5 MG TABLETS PO SCH (22:25)
[2020-11-30] MEDS ORDERED: METHADONE HCL 10 MG TABLET ONE (04:02)
[2020-11-30] MEDS ORDERED: METHADONE HCL 40 MG DISPERSABLE TABLET ONE (04:02)
[2020-11-30] MEDS: METHADONE 160 MG, METHADONE 20 MG PO SCH (05:31)
[2020-11-30] MEDS: GABAPENTIN 300 MG CAPSULE PO SCH ×3 (05:31→22:55)
[2020-11-30] MEDS: chlordiazePOXIDE HCL 10 MG CAPSULE PO SCH ×2 (05:31→17:16)
[2020-11-30 06:07] LABS: SARS-CoV-2 NAA Not Detected (Not Detected)
[2020-11-30] MEDS: ATOMOXETINE HCL 40 MG CAPSULE PO SCH (10:30)
[2020-11-30] MEDS: NICOTINE 21 MG/24 HOURS TOPICAL PATCH TD SCH (10:30)
[2020-11-30] MEDS: PRENATAL VITAMINS W/ FOLIC ACID TABLET (FP) PO SCH (10:30)
[2020-11-30] MEDS: hydrOXYzine PAMOATE 25 MG CAPSULE (FP) PO PRN (17:18)
[2020-11-30] MEDS: THIAMINE HCL 100 MG TABLET (FP) PO SCH (22:55)
[2020-11-30] MEDS: MELATONIN 5 MG TABLETS PO SCH (22:55)
[2020-11-30] MEDS: QUEtiapine FUMARATE 100 MG TABLET (FP) PO SCH (22:55)
[2020-12-01] MEDS ORDERED: METHADONE HCL 10 MG TABLET ONE (03:40)
[2020-12-01] MEDS ORDERED: METHADONE HCL 40 MG DISPERSABLE TABLET ONE (03:40)
[2020-12-01] MEDS ORDERED: chlordiazePOXIDE HCL 10 MG CAPSULE PO ONE (05:00)
[2020-12-01] MEDS: METHADONE 160 MG, METHADONE 20 MG PO SCH (05:21)
[2020-12-01] MEDS: GABAPENTIN 300 MG CAPSULE PO SCH ×3 (05:22→22:28)
[2020-12-01] MEDS: ATOMOXETINE HCL 40 MG CAPSULE PO SCH (10:43)
[2020-12-01] MEDS: METHOCARBAMOL 500 MG TABLET PO PRN (10:43)
[2020-12-01] MEDS: PRENATAL VITAMINS W/ FOLIC ACID TABLET (FP) PO SCH (10:44)
[2020-12-01] MEDS: NICOTINE 21 MG/24 HOURS TOPICAL PATCH TD SCH (10:44)
[2020-12-01] MEDS: MELATONIN 5 MG TABLETS PO SCH (22:28)
[2020-12-01] MEDS: THIAMINE HCL 100 MG TABLET (FP) PO SCH (22:28)
[2020-12-01] MEDS: QUEtiapine FUMARATE 100 MG TABLET (FP) PO SCH (22:28)
[2020-12-02] MEDS ORDERED: METHADONE HCL 10 MG TABLET ONE (03:44)
[2020-12-02] MEDS ORDERED: METHADONE HCL 40 MG DISPERSABLE TABLET ONE (03:45)
[2020-12-02] MEDS: METHADONE 160 MG, METHADONE 20 MG PO SCH (05:18)
[2020-12-02] MEDS: GABAPENTIN 300 MG CAPSULE PO SCH (05:18)
[2020-12-02 09:44] VITALS: BP 143/72; PULSE 89; TEMP 97.5
[2020-12-02] MEDS: PRENATAL VITAMINS W/ FOLIC ACID TABLET (FP) PO SCH (10:03)
[2020-12-02] MEDS: NICOTINE POLACRILEX 4 MG GUM BUC PRN (10:03)
[2020-12-02] MEDS: ATOMOXETINE HCL 40 MG CAPSULE PO SCH (10:03)
[2020-12-02] MEDS: NICOTINE 21 MG/24 HOURS TOPICAL PATCH TD SCH (10:03)
== END 2020-12-02 10:29 | disposition other institution (70) | DRG 773 ==
LOC: YASAS 15:24 → Y6N 18:40
PROVIDERS: ADMIT Allergy & Immunology; ATTEND Allergy & Immunology
PROC: HZ2ZZZZ Detoxification Services for Substance Abuse Treatment (ICD-10-PCS; principal; 2020-11-26)
DX: F10.230 Alcohol dependence with withdrawal, uncomplicated (principal); F11.20 Opioid dependence, uncomplicated; F17.210 Nicotine dependence, cigarettes, uncomplicated; F10.282 Alcohol dependence with alcohol-induced sleep disorder; F10.280 Alcohol dependence with alcohol-induced anxiety disorder; F41.9 Anxiety disorder, unspecified; F90.9 Attention-deficit hyperactivity disorder, unspecified type; J45.909 Unspecified asthma, uncomplicated; J30.9 Allergic rhinitis, unspecified; E29.1 Testicular hypofunction; E66.01 Morbid (severe) obesity due to excess calories; Z68.41 Body mass index [BMI] 40.0-44.9, adult
CPT/HCPCS: 36415; 80053; 85027; 86780; C9803; U0003; U0005

== ENCOUNTER 2021-06-27 13:22 | Inpatient (IN) | payer OTHER ==
[2021-06-27] MEDS ORDERED: MAGNESIUM CITRATE 300 ML BOTTLE PO PRN (14:49)
[2021-06-27] MEDS ORDERED: ACETAMINOPHEN 325 MG TABLET (FP) PO PRN ×2 (14:49)
[2021-06-27] MEDS ORDERED: MAGNESIUM HYDROX 2400MG/30ML ORAL SUSPENSION 30 ML CUP PO PRN (14:49)
[2021-06-27] MEDS ORDERED: BISMUTH SUBSALICYLATE 524 MG/30 ML PO PRN (14:49)
[2021-06-27] MEDS ORDERED: MENTHOL/PHENOL 1 EACH UD MM PRN (14:49)
[2021-06-27] MEDS ORDERED: MAG HYDROX/AL HYDROX/SIMETH 30 ML UNIT-DOSE CUP PO PRN (14:49)
[2021-06-27] MEDS ORDERED: ONDANSETRON *ODT* 4 MG TABLET SL PRN (14:49)
[2021-06-27] MEDS: diazePAM 5 MG TABLET PO PRN (16:00)
[2021-06-27 16:08] VITALS: BMI 43.7
[2021-06-27] MEDS: IBUPROFEN 400 MG TABLET (FP) PO PRN (18:10)
[2021-06-27] MEDS: hydrOXYzine PAMOATE 25 MG CAPSULE (FP) PO SCH ×2 (18:11→23:36)
[2021-06-27] MEDS: diazePAM 5 MG TABLET PO SCH ×2 (18:11→22:12)
[2021-06-27] MEDS: NICOTINE 10 MG CARTRIDGE (INHALER) IH PRN (19:40)
[2021-06-27] MEDS ORDERED: MELATONIN 5 MG TABLETS PO SCH (22:00)
[2021-06-27] MEDS: THIAMINE HCL 100 MG TABLET (FP) PO SCH (22:12)
[2021-06-28] MEDS: NICOTINE 10 MG CARTRIDGE (INHALER) IH PRN ×5 (01:29→20:24)
[2021-06-28] MEDS: diazePAM 5 MG TABLET PO PRN ×3 (01:34→20:19)
[2021-06-28] MEDS: IBUPROFEN 400 MG TABLET (FP) PO PRN (03:47)
[2021-06-28] MEDS: METHOCARBAMOL 500 MG TABLET PO PRN (03:47)
[2021-06-28] MEDS: hydrOXYzine PAMOATE 25 MG CAPSULE (FP) PO SCH (05:21)
[2021-06-28] MEDS: diazePAM 5 MG TABLET PO SCH ×4 (05:21→22:18)
[2021-06-28] MEDS ORDERED: OLANZapine 10 MG TABLET PO PRN (08:59)
[2021-06-28] MEDS ORDERED: methaDONE HCL 10 MG TABLET PO SCH (09:30)
[2021-06-28] MEDS ORDERED: DULoxetine HCL 30 MG CAPSULE.DR PO SCH (10:00)
[2021-06-28] MEDS ORDERED: methaDONE HCL 10 MG TABLET ONE (10:03)
[2021-06-28] MEDS ORDERED: methaDONE HCL 40 MG DISPERSABLE TABLET ONE (10:04)
[2021-06-28] MEDS: PRENATAL VITAMINS W/ FOLIC ACID TABLET (FP) PO SCH (10:25)
[2021-06-28] MEDS ORDERED: COLLOIDAL OATMEAL 1 BAR EACH TP PRN (13:23)
[2021-06-28] MEDS ORDERED: BENZOCAINE 20 % GEL TUBE MM PRN (13:25)
[2021-06-28 13:41] LABS: HIV INTERPRETATION NEGATIVE (NEGATIVE)
[2021-06-28] MEDS: buPROPion HCL 75 MG TABLET PO SCH (14:46)
[2021-06-28] MEDS: GABAPENTIN 300 MG CAPSULE PO SCH ×2 (14:46→22:18)
[2021-06-28] MEDS: AMMONIUM LACTATE 12% LOTION 225 GM BOTTLE TP SCH ×2 (16:44→22:18)
[2021-06-28] MEDS ORDERED: QUEtiapine FUMARATE 50 MG TABLET PO SCH (22:00)
[2021-06-28] MEDS: THIAMINE HCL 100 MG TABLET (FP) PO SCH (22:18)
[2021-06-28] MEDS: QUEtiapine FUMARATE 25 MG TABLET PO SCH (22:18)
[2021-06-29] MEDS: NICOTINE 10 MG CARTRIDGE (INHALER) IH PRN ×5 (00:15→22:28)
[2021-06-29] MEDS: METHOCARBAMOL 500 MG TABLET PO PRN ×2 (01:02→10:25)
[2021-06-29] MEDS: diazePAM 5 MG TABLET PO PRN ×3 (01:03→17:35)
[2021-06-29] MEDS ORDERED: methaDONE HCL 10 MG TABLET ONE (04:35)
[2021-06-29] MEDS ORDERED: methaDONE HCL 40 MG DISPERSABLE TABLET ONE (04:36)
[2021-06-29] MEDS: GABAPENTIN 300 MG CAPSULE PO SCH ×3 (05:24→22:28)
[2021-06-29] MEDS: diazePAM 5 MG TABLET PO SCH ×3 (05:26→22:28)
[2021-06-29] MEDS: buPROPion HCL 75 MG TABLET PO SCH (10:25)
[2021-06-29] MEDS: PRENATAL VITAMINS W/ FOLIC ACID TABLET (FP) PO SCH (10:25)
[2021-06-29] MEDS: AMMONIUM LACTATE 12% LOTION 225 GM BOTTLE TP SCH ×2 (10:25→22:30)
[2021-06-29 10:26] LABS: HEMATOCRIT 36.6 % (35.4-49); MCH 31.1 pg (25.7-33.7); MCHC 35.5 g/dl (32.0-35.9); MEAN CELL VOLUME 87.6 fl (80-96); MEAN PLT VOLUME 8.4 fl (7.5-11.1); PLATELET COUNT 157 10^3/uL (134-434); RBC 4.18 M/mm3 (4.00-5.60); RDW 13.6 % (11.9-15.9); WHITE BLOOD COUNT 5.1 K/mm3 (4.0-10.0)
[2021-06-29 10:34] LABS: CALCIUM 8.8 mg/dL (8.5-10.1)
[2021-06-29 10:35] LABS: ALBUMIN 3.3 g/dl (3.4-5.0); BLOOD UREA NITROGEN 11.6 mg/dL (7-18)
[2021-06-29 10:38] LABS: BILIRUBIN,TOTAL 0.5 mg/dL (0.2-1)
[2021-06-29 10:39] LABS: TOT PROT 6.4 g/dl (6.4-8.2)
[2021-06-29] MEDS: cloNIDine HCL 0.1 MG TABLET PO PRN (17:35)
[2021-06-29] MEDS: QUEtiapine FUMARATE 25 MG TABLET PO SCH (22:28)
[2021-06-29] MEDS: THIAMINE HCL 100 MG TABLET (FP) PO SCH (22:28)
[2021-06-30] MEDS: diazePAM 5 MG TABLET PO PRN ×2 (02:09→10:20)
[2021-06-30] MEDS ORDERED: methaDONE HCL 10 MG TABLET ONE (04:18)
[2021-06-30] MEDS ORDERED: methaDONE HCL 40 MG DISPERSABLE TABLET ONE (04:18)
[2021-06-30] MEDS: GABAPENTIN 300 MG CAPSULE PO SCH ×3 (05:30→22:08)
[2021-06-30] MEDS: diazePAM 5 MG TABLET PO SCH ×2 (05:30→17:25)
[2021-06-30] MEDS: METHOCARBAMOL 500 MG TABLET PO PRN ×2 (05:33→14:47)
[2021-06-30] MEDS: NICOTINE 10 MG CARTRIDGE (INHALER) IH PRN ×4 (05:43→19:02)
[2021-06-30] MEDS: PRENATAL VITAMINS W/ FOLIC ACID TABLET (FP) PO SCH (10:20)
[2021-06-30] MEDS: AMMONIUM LACTATE 12% LOTION 225 GM BOTTLE TP SCH ×2 (10:21→22:08)
[2021-06-30] MEDS: buPROPion HCL 75 MG TABLET PO SCH (10:21)
[2021-06-30] MEDS: QUEtiapine FUMARATE 25 MG TABLET PO SCH (22:08)
[2021-06-30] MEDS: THIAMINE HCL 100 MG TABLET (FP) PO SCH (22:08)
[2021-07-01] MEDS: METHOCARBAMOL 500 MG TABLET PO PRN (02:00)
[2021-07-01] MEDS: cloNIDine HCL 0.1 MG TABLET PO PRN (02:00)
[2021-07-01] MEDS ORDERED: methaDONE HCL 10 MG TABLET ONE (04:43)
[2021-07-01] MEDS ORDERED: methaDONE HCL 40 MG DISPERSABLE TABLET ONE (04:44)
[2021-07-01] MEDS: GABAPENTIN 300 MG CAPSULE PO SCH (05:05)
[2021-07-01] MEDS: NICOTINE 10 MG CARTRIDGE (INHALER) IH PRN ×3 (05:10→11:43)
[2021-07-01] MEDS ORDERED: diazePAM 5 MG TABLET PO ONE (06:00)
[2021-07-01] MEDS: buPROPion HCL 75 MG TABLET PO SCH (10:30)
[2021-07-01] MEDS: AMMONIUM LACTATE 12% LOTION 225 GM BOTTLE TP SCH (10:30)
[2021-07-01] MEDS: PRENATAL VITAMINS W/ FOLIC ACID TABLET (FP) PO SCH (10:31)
[2021-07-01 13:05] VITALS: BP 141/93; PULSE 90; TEMP 97.5
== END 2021-07-01 12:52 | disposition other institution (70) | DRG 773 ==
LOC: YASAS 13:22 → Y6N 15:55
PROVIDERS: ADMIT Allergy & Immunology; ATTEND Allergy & Immunology
PROC: HZ2ZZZZ Detoxification Services for Substance Abuse Treatment (ICD-10-PCS; principal; 2021-06-27)
DX: F10.230 Alcohol dependence with withdrawal, uncomplicated (principal); F11.20 Opioid dependence, uncomplicated; F13.230 Sedative, hypnotic or anxiolytic dependence with withdrawal, uncomplicated; F17.210 Nicotine dependence, cigarettes, uncomplicated; F41.9 Anxiety disorder, unspecified; F32.A Depression, unspecified; F90.9 Attention-deficit hyperactivity disorder, unspecified type; F19.24 Other psychoactive substance dependence with psychoactive substance-induced mood disorder; J45.20 Mild intermittent asthma, uncomplicated; R03.0 Elevated blood-pressure reading, without diagnosis of hypertension; E66.9 Obesity, unspecified; Z68.41 Body mass index [BMI] 40.0-44.9, adult; Z56.0 Unemployment, unspecified; Z59.01 Sheltered homelessness
CPT/HCPCS: 36415; 80053; 85027; 86780; 87389; 87811; C9803; J0735; Q0162; U0003; U0005

== ENCOUNTER 2021-07-01 13:31 | Inpatient (IN) | payer OTHER ==
[2021-07-01] MEDS ORDERED: MAGNESIUM HYDROX 2400MG/30ML ORAL SUSPENSION 30 ML CUP PO PRN (14:56)
[2021-07-01] MEDS ORDERED: LOPERAMIDE HCL 2 MG CAPSULE PO PRN (14:56)
[2021-07-01] MEDS ORDERED: guaiFENesin 200 MG/10 ML 10 ML UNIT-DOSE CUPS PO PRN (14:56)
[2021-07-01] MEDS ORDERED: P-EPHED 60MG/TRIPROLIDI 2.5MG TABLET PO PRN (14:56)
[2021-07-01] MEDS ORDERED: MENTHOL/PHENOL 1 EACH UD MM PRN (14:56)
[2021-07-01] MEDS ORDERED: MAGNESIUM CITRATE 300 ML BOTTLE PO PRN (14:56)
[2021-07-01] MEDS ORDERED: ACETAMINOPHEN 325 MG TABLET (FP) PO PRN (14:56)
[2021-07-01] MEDS ORDERED: ALBUTEROL SO4 HFA INHALER IH PRN (15:44)
[2021-07-01] MEDS: NICOTINE 10 MG CARTRIDGE (INHALER) IH PRN (17:02)
[2021-07-01] MEDS: THIAMINE HCL 100 MG TABLET (FP) PO SCH (21:53)
[2021-07-01] MEDS: SUVOREXANT 10 MG TABLET PO PRN (21:53)
[2021-07-01] MEDS: GABAPENTIN 300 MG CAPSULE PO SCH (21:54)
[2021-07-01] MEDS ORDERED: MELATONIN 5 MG TABLETS PO SCH (22:00)
[2021-07-01] MEDS ORDERED: QUEtiapine FUMARATE 25 MG TABLET PO SCH (22:00)
[2021-07-02] MEDS ORDERED: methaDONE HCL 40 MG DISPERSABLE TABLET ONE (05:56)
[2021-07-02] MEDS ORDERED: methaDONE HCL 10 MG TABLET ONE (05:56)
[2021-07-02] MEDS ORDERED: methaDONE HCL 40 MG DISPERSABLE TABLET PO SCH (06:00)
[2021-07-02] MEDS: GABAPENTIN 300 MG CAPSULE PO SCH (06:02)
[2021-07-02] MEDS ORDERED: GABAPENTIN 100 MG CAPSULE PO STA (07:35)
[2021-07-02] MEDS ORDERED: buPROPion HCL 75 MG TABLET PO SCH (10:00)
[2021-07-02] MEDS: PRENATAL VITAMINS W/ FOLIC ACID TABLET (FP) PO SCH (10:54)
[2021-07-02] MEDS: NICOTINE 10 MG CARTRIDGE (INHALER) IH PRN ×3 (10:55→21:10)
[2021-07-02] MEDS: GABAPENTIN 400 MG CAPSULE PO SCH ×2 (15:07→21:10)
[2021-07-02] MEDS: THIAMINE HCL 100 MG TABLET (FP) PO SCH (21:09)
[2021-07-02] MEDS: SUVOREXANT 10 MG TABLET PO PRN (21:10)
[2021-07-03] MEDS ORDERED: methaDONE HCL 40 MG DISPERSABLE TABLET ONE (05:59)
[2021-07-03] MEDS ORDERED: methaDONE HCL 10 MG TABLET ONE (06:00)
[2021-07-03] MEDS: GABAPENTIN 400 MG CAPSULE PO SCH ×3 (06:01→21:23)
[2021-07-03] MEDS: NICOTINE 10 MG CARTRIDGE (INHALER) IH PRN ×4 (06:02→21:23)
[2021-07-03] MEDS: PRENATAL VITAMINS W/ FOLIC ACID TABLET (FP) PO SCH (09:29)
[2021-07-03] MEDS: buPROPion HCL 75 MG TABLET PO SCH ×2 (09:30→17:34)
[2021-07-03] MEDS: THIAMINE HCL 100 MG TABLET (FP) PO SCH (21:23)
[2021-07-03] MEDS: SUVOREXANT 15 MG TABLET PO PRN (22:04)
[2021-07-04] MEDS: NICOTINE 10 MG CARTRIDGE (INHALER) IH PRN ×3 (02:47→16:40)
[2021-07-04] MEDS ORDERED: methaDONE HCL 40 MG DISPERSABLE TABLET ONE (03:18)
[2021-07-04] MEDS ORDERED: methaDONE HCL 10 MG TABLET ONE (03:19)
[2021-07-04] MEDS: GABAPENTIN 400 MG CAPSULE PO SCH ×4 (06:10→21:20)
[2021-07-04] MEDS: buPROPion HCL 75 MG TABLET PO SCH ×2 (10:14→17:57)
[2021-07-04] MEDS: cloNIDine HCL 0.1 MG TABLET PO SCH (10:14)
[2021-07-04] MEDS: PRENATAL VITAMINS W/ FOLIC ACID TABLET (FP) PO SCH (10:14)
[2021-07-04] MEDS: SUVOREXANT 15 MG TABLET PO PRN (21:20)
[2021-07-04] MEDS: THIAMINE HCL 100 MG TABLET (FP) PO SCH (21:20)
[2021-07-05] MEDS ORDERED: methaDONE HCL 40 MG DISPERSABLE TABLET ONE (03:21)
[2021-07-05] MEDS ORDERED: methaDONE HCL 10 MG TABLET ONE (03:21)
[2021-07-05] MEDS: GABAPENTIN 400 MG CAPSULE PO SCH ×3 (05:58→21:09)
[2021-07-05] MEDS: NICOTINE 10 MG CARTRIDGE (INHALER) IH PRN ×5 (05:58→21:11)
[2021-07-05] MEDS: buPROPion HCL 75 MG TABLET PO SCH ×2 (09:47→18:31)
[2021-07-05] MEDS: PRENATAL VITAMINS W/ FOLIC ACID TABLET (FP) PO SCH (09:47)
[2021-07-05] MEDS: cloNIDine HCL 0.1 MG TABLET PO SCH (09:47)
[2021-07-05] MEDS: THIAMINE HCL 100 MG TABLET (FP) PO SCH (21:09)
[2021-07-05] MEDS: SUVOREXANT 15 MG TABLET PO PRN (21:10)
[2021-07-05] MEDS: IBUPROFEN 400 MG TABLET (FP) PO PRN (21:10)
[2021-07-06] MEDS ORDERED: methaDONE HCL 40 MG DISPERSABLE TABLET ONE (05:55)
[2021-07-06] MEDS ORDERED: methaDONE HCL 10 MG TABLET ONE (05:56)
[2021-07-06] MEDS: NICOTINE 10 MG CARTRIDGE (INHALER) IH PRN ×5 (05:57→21:16)
[2021-07-06] MEDS: GABAPENTIN 400 MG CAPSULE PO SCH ×3 (05:57→21:17)
[2021-07-06] MEDS: cloNIDine HCL 0.1 MG TABLET PO SCH (09:52)
[2021-07-06] MEDS: buPROPion HCL 75 MG TABLET PO SCH ×2 (09:52→17:27)
[2021-07-06] MEDS: PRENATAL VITAMINS W/ FOLIC ACID TABLET (FP) PO SCH (09:52)
[2021-07-06] MEDS: THIAMINE HCL 100 MG TABLET (FP) PO SCH (21:17)
[2021-07-06] MEDS: SUVOREXANT 15 MG TABLET PO PRN (22:04)
[2021-07-07] MEDS ORDERED: methaDONE HCL 40 MG DISPERSABLE TABLET ONE (02:35)
[2021-07-07] MEDS ORDERED: methaDONE HCL 10 MG TABLET ONE (02:36)
[2021-07-07] MEDS: NICOTINE 10 MG CARTRIDGE (INHALER) IH PRN ×5 (05:50→21:13)
[2021-07-07] MEDS: GABAPENTIN 400 MG CAPSULE PO SCH ×3 (05:51→21:11)
[2021-07-07] MEDS: PRENATAL VITAMINS W/ FOLIC ACID TABLET (FP) PO SCH (11:37)
[2021-07-07] MEDS: buPROPion HCL 75 MG TABLET PO SCH ×2 (11:39→17:17)
[2021-07-07] MEDS: cloNIDine HCL 0.1 MG TABLET PO SCH (11:39)
[2021-07-07] MEDS: THIAMINE HCL 100 MG TABLET (FP) PO SCH (21:12)
[2021-07-07] MEDS: SUVOREXANT 15 MG TABLET PO PRN (21:13)
[2021-07-08] MEDS ORDERED: methaDONE HCL 10 MG TABLET ONE (03:01)
[2021-07-08] MEDS ORDERED: methaDONE HCL 40 MG DISPERSABLE TABLET ONE (03:01)
[2021-07-08] MEDS: GABAPENTIN 400 MG CAPSULE PO SCH ×3 (05:56→21:07)
[2021-07-08] MEDS: NICOTINE 10 MG CARTRIDGE (INHALER) IH PRN ×5 (05:57→21:08)
[2021-07-08] MEDS: buPROPion HCL 75 MG TABLET PO SCH ×2 (09:48→17:17)
[2021-07-08] MEDS: cloNIDine HCL 0.1 MG TABLET PO SCH (09:48)
[2021-07-08] MEDS: PRENATAL VITAMINS W/ FOLIC ACID TABLET (FP) PO SCH (09:48)
[2021-07-08] MEDS: SUVOREXANT 15 MG TABLET PO PRN (21:07)
[2021-07-08] MEDS: THIAMINE HCL 100 MG TABLET (FP) PO SCH (21:07)
[2021-07-09] MEDS ORDERED: methaDONE HCL 40 MG DISPERSABLE TABLET ONE (03:47)
[2021-07-09] MEDS ORDERED: methaDONE HCL 10 MG TABLET ONE (03:47)
[2021-07-09] MEDS: NICOTINE 10 MG CARTRIDGE (INHALER) IH PRN ×5 (06:03→21:04)
[2021-07-09] MEDS: GABAPENTIN 400 MG CAPSULE PO SCH (06:04)
[2021-07-09] MEDS: cloNIDine HCL 0.1 MG TABLET PO SCH (09:39)
[2021-07-09] MEDS: buPROPion HCL 75 MG TABLET PO SCH ×2 (09:39→17:41)
[2021-07-09] MEDS: PRENATAL VITAMINS W/ FOLIC ACID TABLET (FP) PO SCH (09:39)
[2021-07-09] MEDS: IBUPROFEN 400 MG TABLET (FP) PO PRN (09:40)
[2021-07-09] MEDS ORDERED: GABAPENTIN 400 MG CAPSULE PO SCH (13:26)
[2021-07-09] MEDS ORDERED: GABAPENTIN 400 MG CAPSULE ONE ×2 (13:59→18:13)
[2021-07-09] MEDS: GABAPENTIN 400 MG, GABAPENTIN 100 MG PO SCH ×2 (13:59→21:02)
[2021-07-09] MEDS ORDERED: GABAPENTIN 100 MG CAPSULE ONE ×2 (13:59→18:13)
[2021-07-09] MEDS: THIAMINE HCL 100 MG TABLET (FP) PO SCH (21:02)
[2021-07-09] MEDS: SUVOREXANT 15 MG TABLET PO PRN (21:03)
[2021-07-10] MEDS ORDERED: GABAPENTIN 100 MG CAPSULE ONE ×3 (03:56→18:23)
[2021-07-10] MEDS ORDERED: methaDONE HCL 40 MG DISPERSABLE TABLET ONE (03:57)
[2021-07-10] MEDS ORDERED: methaDONE HCL 10 MG TABLET ONE (03:57)
[2021-07-10] MEDS ORDERED: GABAPENTIN 400 MG CAPSULE ONE ×3 (03:57→18:23)
[2021-07-10] MEDS: GABAPENTIN 400 MG, GABAPENTIN 100 MG PO SCH ×3 (06:20→21:03)
[2021-07-10] MEDS: NICOTINE 10 MG CARTRIDGE (INHALER) IH PRN ×4 (09:14→21:33)
[2021-07-10] MEDS: cloNIDine HCL 0.1 MG TABLET PO SCH (09:14)
[2021-07-10] MEDS: buPROPion HCL 75 MG TABLET PO SCH ×2 (09:14→18:40)
[2021-07-10] MEDS: PRENATAL VITAMINS W/ FOLIC ACID TABLET (FP) PO SCH (09:14)
[2021-07-10] MEDS: THIAMINE HCL 100 MG TABLET (FP) PO SCH (21:03)
[2021-07-10] MEDS: SUVOREXANT 15 MG TABLET PO PRN (21:05)
[2021-07-11] MEDS ORDERED: methaDONE HCL 40 MG DISPERSABLE TABLET ONE (02:54)
[2021-07-11] MEDS ORDERED: GABAPENTIN 100 MG CAPSULE ONE ×3 (02:54→18:40)
[2021-07-11] MEDS ORDERED: GABAPENTIN 400 MG CAPSULE ONE ×3 (02:54→18:40)
[2021-07-11] MEDS ORDERED: methaDONE HCL 10 MG TABLET ONE (02:55)
[2021-07-11] MEDS: GABAPENTIN 400 MG, GABAPENTIN 100 MG PO SCH ×3 (05:58→21:03)
[2021-07-11] MEDS: NICOTINE 10 MG CARTRIDGE (INHALER) IH PRN ×4 (05:59→21:04)
[2021-07-11] MEDS: MAG HYDROX/AL HYDROX/SIMETH 30 ML UNIT-DOSE CUP PO PRN (07:37)
[2021-07-11] MEDS: PRENATAL VITAMINS W/ FOLIC ACID TABLET (FP) PO SCH (09:35)
[2021-07-11] MEDS: cloNIDine HCL 0.1 MG TABLET PO SCH (09:35)
[2021-07-11] MEDS: buPROPion HCL 75 MG TABLET PO SCH ×2 (09:35→18:06)
[2021-07-11] MEDS: THIAMINE HCL 100 MG TABLET (FP) PO SCH (21:03)
[2021-07-11] MEDS: SUVOREXANT 15 MG TABLET PO PRN (21:04)
[2021-07-12] MEDS ORDERED: GABAPENTIN 100 MG CAPSULE ONE (02:51)
[2021-07-12] MEDS ORDERED: GABAPENTIN 400 MG CAPSULE ONE (02:51)
[2021-07-12] MEDS ORDERED: methaDONE HCL 40 MG DISPERSABLE TABLET ONE (02:51)
[2021-07-12] MEDS ORDERED: methaDONE HCL 10 MG TABLET ONE (02:52)
[2021-07-12] MEDS: NICOTINE 10 MG CARTRIDGE (INHALER) IH PRN ×4 (06:03→21:03)
[2021-07-12] MEDS: GABAPENTIN 400 MG, GABAPENTIN 100 MG PO SCH (06:03)
[2021-07-12] MEDS: cloNIDine HCL 0.1 MG TABLET PO SCH (09:19)
[2021-07-12] MEDS: PRENATAL VITAMINS W/ FOLIC ACID TABLET (FP) PO SCH (09:19)
[2021-07-12] MEDS: buPROPion HCL 75 MG TABLET PO SCH ×2 (09:19→17:09)
[2021-07-12] MEDS ORDERED: GABAPENTIN 400 MG CAPSULE PO SCH (12:01)
[2021-07-12] MEDS: GABAPENTIN 300 MG CAPSULE PO SCH ×2 (13:33→21:03)
[2021-07-12] MEDS: SUVOREXANT 15 MG TABLET PO PRN (21:02)
[2021-07-12] MEDS: THIAMINE HCL 100 MG TABLET (FP) PO SCH (21:03)
[2021-07-13] MEDS ORDERED: methaDONE HCL 40 MG DISPERSABLE TABLET ONE (02:49)
[2021-07-13] MEDS ORDERED: methaDONE HCL 10 MG TABLET ONE (02:49)
[2021-07-13] MEDS: GABAPENTIN 300 MG CAPSULE PO SCH ×3 (06:12→21:06)
[2021-07-13] MEDS: NICOTINE 10 MG CARTRIDGE (INHALER) IH PRN ×5 (06:12→21:07)
[2021-07-13] MEDS: PRENATAL VITAMINS W/ FOLIC ACID TABLET (FP) PO SCH (09:19)
[2021-07-13] MEDS: cloNIDine HCL 0.1 MG TABLET PO SCH (09:19)
[2021-07-13] MEDS: buPROPion HCL 75 MG TABLET PO SCH ×2 (09:19→17:07)
[2021-07-13] MEDS: SUVOREXANT 15 MG TABLET PO PRN (21:05)
[2021-07-13] MEDS: IBUPROFEN 400 MG TABLET (FP) PO PRN (21:07)
[2021-07-13] MEDS: THIAMINE HCL 100 MG TABLET (FP) PO SCH (21:07)
[2021-07-14] MEDS ORDERED: methaDONE HCL 40 MG DISPERSABLE TABLET ONE (05:47)
[2021-07-14] MEDS ORDERED: methaDONE HCL 10 MG TABLET ONE (05:48)
[2021-07-14] MEDS: GABAPENTIN 300 MG CAPSULE PO SCH ×3 (06:07→21:13)
[2021-07-14] MEDS: NICOTINE 10 MG CARTRIDGE (INHALER) IH PRN ×5 (06:07→21:14)
[2021-07-14] MEDS: cloNIDine HCL 0.1 MG TABLET PO SCH (09:35)
[2021-07-14] MEDS: buPROPion HCL 75 MG TABLET PO SCH ×2 (09:35→17:07)
[2021-07-14] MEDS: PRENATAL VITAMINS W/ FOLIC ACID TABLET (FP) PO SCH (09:35)
[2021-07-14] MEDS: THIAMINE HCL 100 MG TABLET (FP) PO SCH (21:13)
[2021-07-14] MEDS: SUVOREXANT 15 MG TABLET PO PRN (21:13)
[2021-07-15] MEDS ORDERED: methaDONE HCL 10 MG TABLET ONE (03:06)
[2021-07-15] MEDS ORDERED: methaDONE HCL 40 MG DISPERSABLE TABLET ONE (03:06)
[2021-07-15] MEDS: GABAPENTIN 300 MG CAPSULE PO SCH ×3 (05:56→21:25)
[2021-07-15] MEDS: NICOTINE 10 MG CARTRIDGE (INHALER) IH PRN ×5 (05:56→21:21)
[2021-07-15] MEDS: buPROPion HCL 75 MG TABLET PO SCH ×2 (09:31→18:13)
[2021-07-15] MEDS: cloNIDine HCL 0.1 MG TABLET PO SCH (09:31)
[2021-07-15] MEDS: PRENATAL VITAMINS W/ FOLIC ACID TABLET (FP) PO SCH (09:31)
[2021-07-15] MEDS: SUVOREXANT 15 MG TABLET PO PRN (21:23)
[2021-07-15] MEDS: THIAMINE HCL 100 MG TABLET (FP) PO SCH (21:24)
[2021-07-15] MEDS: IBUPROFEN 400 MG TABLET (FP) PO PRN (21:24)
[2021-07-16] MEDS ORDERED: methaDONE HCL 40 MG DISPERSABLE TABLET ONE (03:59)
[2021-07-16] MEDS ORDERED: methaDONE HCL 10 MG TABLET ONE (04:00)
[2021-07-16] MEDS: GABAPENTIN 300 MG CAPSULE PO SCH ×3 (06:10→21:03)
[2021-07-16] MEDS: NICOTINE 10 MG CARTRIDGE (INHALER) IH PRN ×4 (06:13→21:03)
[2021-07-16] MEDS: buPROPion HCL 75 MG TABLET PO SCH ×2 (09:41→17:18)
[2021-07-16] MEDS: cloNIDine HCL 0.1 MG TABLET PO SCH (09:41)
[2021-07-16] MEDS: PRENATAL VITAMINS W/ FOLIC ACID TABLET (FP) PO SCH (09:41)
[2021-07-16] MEDS: SUVOREXANT 15 MG TABLET PO PRN (21:02)
[2021-07-16] MEDS: THIAMINE HCL 100 MG TABLET (FP) PO SCH (21:03)
[2021-07-17] MEDS ORDERED: methaDONE HCL 10 MG TABLET ONE (01:24)
[2021-07-17] MEDS ORDERED: methaDONE HCL 40 MG DISPERSABLE TABLET ONE (01:24)
[2021-07-17] MEDS: GABAPENTIN 300 MG CAPSULE PO SCH ×3 (06:20→21:53)
[2021-07-17] MEDS: NICOTINE 10 MG CARTRIDGE (INHALER) IH PRN ×6 (06:21→21:54)
[2021-07-17] MEDS: PRENATAL VITAMINS W/ FOLIC ACID TABLET (FP) PO SCH (09:10)
[2021-07-17] MEDS: buPROPion HCL 75 MG TABLET PO SCH ×2 (09:10→17:14)
[2021-07-17] MEDS: cloNIDine HCL 0.1 MG TABLET PO SCH (09:10)
[2021-07-17] MEDS: MAG HYDROX/AL HYDROX/SIMETH 30 ML UNIT-DOSE CUP PO PRN (09:12)
[2021-07-17] MEDS: IBUPROFEN 400 MG TABLET (FP) PO PRN (20:31)
[2021-07-17] MEDS: THIAMINE HCL 100 MG TABLET (FP) PO SCH (21:53)
[2021-07-17] MEDS: SUVOREXANT 15 MG TABLET PO PRN (21:55)
[2021-07-18] MEDS ORDERED: methaDONE HCL 40 MG DISPERSABLE TABLET ONE (05:59)
[2021-07-18] MEDS ORDERED: methaDONE HCL 10 MG TABLET ONE (06:00)
[2021-07-18] MEDS: NICOTINE 10 MG CARTRIDGE (INHALER) IH PRN ×4 (06:04→22:37)
[2021-07-18] MEDS: GABAPENTIN 300 MG CAPSULE PO SCH ×3 (06:06→21:35)
[2021-07-18] MEDS: buPROPion HCL 75 MG TABLET PO SCH ×2 (10:44→17:33)
[2021-07-18] MEDS: cloNIDine HCL 0.1 MG TABLET PO SCH (10:44)
[2021-07-18] MEDS: PRENATAL VITAMINS W/ FOLIC ACID TABLET (FP) PO SCH (10:44)
[2021-07-18] MEDS: THIAMINE HCL 100 MG TABLET (FP) PO SCH (21:35)
[2021-07-18] MEDS: SUVOREXANT 15 MG TABLET PO PRN (21:35)
[2021-07-19] MEDS ORDERED: methaDONE HCL 40 MG DISPERSABLE TABLET ONE (03:30)
[2021-07-19] MEDS ORDERED: methaDONE HCL 10 MG TABLET ONE (03:30)
[2021-07-19] MEDS: GABAPENTIN 300 MG CAPSULE PO SCH ×3 (06:10→21:26)
[2021-07-19] MEDS: PRENATAL VITAMINS W/ FOLIC ACID TABLET (FP) PO SCH (10:11)
[2021-07-19] MEDS: buPROPion HCL 75 MG TABLET PO SCH ×2 (10:11→18:38)
[2021-07-19] MEDS: cloNIDine HCL 0.1 MG TABLET PO SCH (10:11)
[2021-07-19] MEDS: NICOTINE 10 MG CARTRIDGE (INHALER) IH PRN ×3 (10:12→18:38)
[2021-07-19] MEDS: THIAMINE HCL 100 MG TABLET (FP) PO SCH (21:26)
[2021-07-19] MEDS: SUVOREXANT 15 MG TABLET PO PRN (21:27)
[2021-07-20] MEDS ORDERED: methaDONE HCL 10 MG TABLET ONE (03:54)
[2021-07-20] MEDS ORDERED: methaDONE HCL 40 MG DISPERSABLE TABLET ONE (03:54)
[2021-07-20] MEDS: GABAPENTIN 300 MG CAPSULE PO SCH ×3 (06:04→21:07)
[2021-07-20] MEDS: buPROPion HCL 75 MG TABLET PO SCH ×2 (09:38→17:27)
[2021-07-20] MEDS: PRENATAL VITAMINS W/ FOLIC ACID TABLET (FP) PO SCH (09:38)
[2021-07-20] MEDS: cloNIDine HCL 0.1 MG TABLET PO SCH (09:38)
[2021-07-20] MEDS: NICOTINE 10 MG CARTRIDGE (INHALER) IH PRN ×4 (09:42→21:06)
[2021-07-20] MEDS: THIAMINE HCL 100 MG TABLET (FP) PO SCH (21:06)
[2021-07-20] MEDS: SUVOREXANT 15 MG TABLET PO PRN (21:07)
[2021-07-21] MEDS ORDERED: methaDONE HCL 10 MG TABLET ONE (04:07)
[2021-07-21] MEDS ORDERED: methaDONE HCL 40 MG DISPERSABLE TABLET ONE (04:07)
[2021-07-21] MEDS: GABAPENTIN 300 MG CAPSULE PO SCH ×3 (06:08→21:04)
[2021-07-21] MEDS: NICOTINE 10 MG CARTRIDGE (INHALER) IH PRN ×5 (06:10→19:48)
[2021-07-21] MEDS: buPROPion HCL 75 MG TABLET PO SCH ×2 (09:57→18:10)
[2021-07-21] MEDS: cloNIDine HCL 0.1 MG TABLET PO SCH (09:57)
[2021-07-21] MEDS: PRENATAL VITAMINS W/ FOLIC ACID TABLET (FP) PO SCH (09:57)
[2021-07-21] MEDS: SUVOREXANT 15 MG TABLET PO PRN (21:04)
[2021-07-21] MEDS: THIAMINE HCL 100 MG TABLET (FP) PO SCH (21:04)
[2021-07-22] MEDS ORDERED: methaDONE HCL 40 MG DISPERSABLE TABLET ONE (03:39)
[2021-07-22] MEDS ORDERED: methaDONE HCL 10 MG TABLET ONE (03:39)
[2021-07-22] MEDS: NICOTINE 10 MG CARTRIDGE (INHALER) IH PRN ×6 (04:26→19:49)
[2021-07-22] MEDS: MAG HYDROX/AL HYDROX/SIMETH 30 ML UNIT-DOSE CUP PO PRN ×2 (04:28→13:54)
[2021-07-22] MEDS: GABAPENTIN 300 MG CAPSULE PO SCH ×3 (06:02→21:12)
[2021-07-22] MEDS: cloNIDine HCL 0.1 MG TABLET PO SCH (09:50)
[2021-07-22] MEDS: PRENATAL VITAMINS W/ FOLIC ACID TABLET (FP) PO SCH (09:50)
[2021-07-22] MEDS: buPROPion HCL 75 MG TABLET PO SCH ×2 (09:50→17:09)
[2021-07-22] MEDS: SUVOREXANT 15 MG TABLET PO PRN (21:11)
[2021-07-22] MEDS: THIAMINE HCL 100 MG TABLET (FP) PO SCH (21:12)
[2021-07-22] MEDS: IBUPROFEN 400 MG TABLET (FP) PO PRN (21:12)
[2021-07-23] MEDS ORDERED: methaDONE HCL 40 MG DISPERSABLE TABLET ONE (05:14)
[2021-07-23] MEDS ORDERED: methaDONE HCL 10 MG TABLET ONE (05:15)
[2021-07-23] MEDS: GABAPENTIN 300 MG CAPSULE PO SCH ×3 (06:02→21:04)
[2021-07-23] MEDS: NICOTINE 10 MG CARTRIDGE (INHALER) IH PRN ×7 (06:07→23:17)
[2021-07-23] MEDS: MAG HYDROX/AL HYDROX/SIMETH 30 ML UNIT-DOSE CUP PO PRN (07:42)
[2021-07-23] MEDS: PRENATAL VITAMINS W/ FOLIC ACID TABLET (FP) PO SCH (09:28)
[2021-07-23] MEDS: cloNIDine HCL 0.1 MG TABLET PO SCH (09:28)
[2021-07-23] MEDS: buPROPion HCL 75 MG TABLET PO SCH ×2 (09:28→17:44)
[2021-07-23] MEDS: THIAMINE HCL 100 MG TABLET (FP) PO SCH (21:04)
[2021-07-23] MEDS: SUVOREXANT 15 MG TABLET PO PRN (21:05)
[2021-07-24] MEDS ORDERED: methaDONE HCL 40 MG DISPERSABLE TABLET ONE (02:48)
[2021-07-24] MEDS ORDERED: methaDONE HCL 10 MG TABLET ONE (02:48)
[2021-07-24] MEDS: GABAPENTIN 300 MG CAPSULE PO SCH ×3 (06:19→21:07)
[2021-07-24] MEDS: NICOTINE 10 MG CARTRIDGE (INHALER) IH PRN ×6 (06:22→21:07)
[2021-07-24] MEDS: cloNIDine HCL 0.1 MG TABLET PO SCH (09:29)
[2021-07-24] MEDS: buPROPion HCL 75 MG TABLET PO SCH ×2 (09:29→17:19)
[2021-07-24] MEDS: PRENATAL VITAMINS W/ FOLIC ACID TABLET (FP) PO SCH (09:29)
[2021-07-24] MEDS: PANTOPRAZOLE 20 MG TABLET PO SCH (09:31)
[2021-07-24] MEDS ORDERED: COLLOIDAL OATMEAL 1 BAR EACH TP PRN (11:51)
[2021-07-24] MEDS: THIAMINE HCL 100 MG TABLET (FP) PO SCH (21:07)
[2021-07-24] MEDS: SUVOREXANT 15 MG TABLET PO PRN (21:07)
[2021-07-25] MEDS ORDERED: methaDONE HCL 40 MG DISPERSABLE TABLET ONE (02:55)
[2021-07-25] MEDS ORDERED: methaDONE HCL 10 MG TABLET ONE (02:56)
[2021-07-25] MEDS: GABAPENTIN 300 MG CAPSULE PO SCH ×3 (06:00→21:12)
[2021-07-25] MEDS: NICOTINE 10 MG CARTRIDGE (INHALER) IH PRN ×6 (06:01→21:14)
[2021-07-25] MEDS: cloNIDine HCL 0.1 MG TABLET PO SCH (09:50)
[2021-07-25] MEDS: PRENATAL VITAMINS W/ FOLIC ACID TABLET (FP) PO SCH (09:50)
[2021-07-25] MEDS: buPROPion HCL 75 MG TABLET PO SCH ×2 (09:50→17:40)
[2021-07-25] MEDS: PANTOPRAZOLE 20 MG TABLET PO SCH (09:50)
[2021-07-25] MEDS: SUVOREXANT 15 MG TABLET PO PRN (21:12)
[2021-07-25] MEDS: THIAMINE HCL 100 MG TABLET (FP) PO SCH (21:14)
[2021-07-26] MEDS ORDERED: methaDONE HCL 40 MG DISPERSABLE TABLET ONE (04:05)
[2021-07-26] MEDS ORDERED: methaDONE HCL 10 MG TABLET ONE (04:05)
[2021-07-26] MEDS: NICOTINE 10 MG CARTRIDGE (INHALER) IH PRN ×5 (06:19→17:54)
[2021-07-26] MEDS: GABAPENTIN 300 MG CAPSULE PO SCH ×3 (06:20→21:29)
[2021-07-26 06:22] VITALS: TEMP 97.1
[2021-07-26] MEDS: cloNIDine HCL 0.1 MG TABLET PO SCH (09:41)
[2021-07-26] MEDS: PRENATAL VITAMINS W/ FOLIC ACID TABLET (FP) PO SCH (09:41)
[2021-07-26] MEDS: buPROPion HCL 75 MG TABLET PO SCH ×2 (09:41→17:54)
[2021-07-26] MEDS: PANTOPRAZOLE 20 MG TABLET PO SCH (09:41)
[2021-07-26] MEDS: THIAMINE HCL 100 MG TABLET (FP) PO SCH (21:29)
[2021-07-26] MEDS: SUVOREXANT 15 MG TABLET PO PRN (21:30)
[2021-07-27] MEDS ORDERED: methaDONE HCL 40 MG DISPERSABLE TABLET ONE (03:48)
[2021-07-27] MEDS ORDERED: methaDONE HCL 10 MG TABLET ONE (03:48)
[2021-07-27] MEDS: NICOTINE 10 MG CARTRIDGE (INHALER) IH PRN ×5 (06:17→21:30)
[2021-07-27] MEDS: GABAPENTIN 300 MG CAPSULE PO SCH ×3 (06:20→21:30)
[2021-07-27] MEDS: PANTOPRAZOLE 20 MG TABLET PO SCH (09:58)
[2021-07-27] MEDS: PRENATAL VITAMINS W/ FOLIC ACID TABLET (FP) PO SCH (09:58)
[2021-07-27] MEDS: cloNIDine HCL 0.1 MG TABLET PO SCH (09:58)
[2021-07-27] MEDS: buPROPion HCL 75 MG TABLET PO SCH ×2 (09:58→17:14)
[2021-07-27] MEDS: THIAMINE HCL 100 MG TABLET (FP) PO SCH (21:29)
[2021-07-27] MEDS: SUVOREXANT 15 MG TABLET PO PRN (21:32)
[2021-07-28] MEDS ORDERED: methaDONE HCL 40 MG DISPERSABLE TABLET ONE (06:08)
[2021-07-28] MEDS ORDERED: methaDONE HCL 10 MG TABLET ONE (06:08)
[2021-07-28] MEDS: GABAPENTIN 300 MG CAPSULE PO SCH ×3 (06:31→21:41)
[2021-07-28] MEDS: cloNIDine HCL 0.1 MG TABLET PO SCH (09:21)
[2021-07-28] MEDS: PRENATAL VITAMINS W/ FOLIC ACID TABLET (FP) PO SCH (09:21)
[2021-07-28] MEDS: PANTOPRAZOLE 20 MG TABLET PO SCH (09:21)
[2021-07-28] MEDS: buPROPion HCL 75 MG TABLET PO SCH ×2 (09:22→17:44)
[2021-07-28] MEDS: NICOTINE 10 MG CARTRIDGE (INHALER) IH PRN ×4 (09:22→21:41)
[2021-07-28] MEDS: THIAMINE HCL 100 MG TABLET (FP) PO SCH (21:41)
[2021-07-28] MEDS ORDERED: SUVOREXANT 15 MG TABLET PO PRN (22:00)
[2021-07-29] MEDS ORDERED: methaDONE HCL 40 MG DISPERSABLE TABLET ONE (03:47)
[2021-07-29] MEDS ORDERED: methaDONE HCL 10 MG TABLET ONE (03:47)
[2021-07-29] MEDS: GABAPENTIN 300 MG CAPSULE PO SCH (06:00)
[2021-07-29] MEDS: NICOTINE 10 MG CARTRIDGE (INHALER) IH PRN ×2 (06:01→08:22)
[2021-07-29 06:39] VITALS: BP 135/86; PULSE 61
[2021-07-29] MEDS: PRENATAL VITAMINS W/ FOLIC ACID TABLET (FP) PO SCH (09:25)
[2021-07-29] MEDS: PANTOPRAZOLE 20 MG TABLET PO SCH (09:25)
[2021-07-29] MEDS: cloNIDine HCL 0.1 MG TABLET PO SCH (09:25)
[2021-07-29] MEDS: buPROPion HCL 75 MG TABLET PO SCH (09:25)
== END 2021-07-29 09:30 | disposition home or self-care (01) | DRG 772 ==
LOC: YASAS 13:31 → Y3W 13:32 → Y3E 07-25 16:23
PROVIDERS: ADMIT Allergy & Immunology; ATTEND Allergy & Immunology
PROC: HZ42ZZZ Group Counseling for Substance Abuse Treatment, Cognitive-Behavioral (ICD-10-PCS; principal; 2021-07-01)
DX: F11.20 Opioid dependence, uncomplicated (principal); F10.20 Alcohol dependence, uncomplicated; F13.20 Sedative, hypnotic or anxiolytic dependence, uncomplicated; F17.210 Nicotine dependence, cigarettes, uncomplicated; F41.9 Anxiety disorder, unspecified; F32.A Depression, unspecified; F90.9 Attention-deficit hyperactivity disorder, unspecified type; J45.909 Unspecified asthma, uncomplicated; K21.9 Gastro-esophageal reflux disease without esophagitis; E66.01 Morbid (severe) obesity due to excess calories; Z68.41 Body mass index [BMI] 40.0-44.9, adult; Z56.0 Unemployment, unspecified
CPT/HCPCS: C9803; J0735; U0003; U0005